=== PATIENT | male | born 1935 | race Caucasian/White ===

== ENCOUNTER 2018-05-16 08:18 | Inpatient (IN) | payer MEDICARE, SELFPAY ==
[2018-05-16] VITALS (16 sets, daily range): BP systolic 145–190; BP diastolic 86–149; PULSE 65–97; RESP 15–18; TEMP 36.3–37; O2SAT 92–98; BMI 28.0; BMI 26.6
[2018-05-16 08:31] LABS: Bedside Glucose 118 mg/dL (70-110)
--- NOTE | 2018-05-16 08:32 | EKG12_ITS ---
Test Reason : NEURO Blood Pressure : / mmHG Vent. Rate : 083 BPM Atrial Rate : 083 BPM P-R Int : 170 ms QRS Dur : 072 ms QT Int : 406 ms P-R-T Axes : 034 017 016 degrees QTc Int : 477 ms Normal sinus rhythm Normal ECG Confirmed by PALOMA GARCIA MD ([id number]), sports editor SHANNON LIN ([id number]) on 05/20/2018 10:18:34 AM Referred By: Confirmed By:PALOMA GARCIA MD
--- NOTE | 2018-05-16 08:32 | CT_ITS ---
STUDY: CT BRAIN WITHOUT CONTRAST REASON FOR EXAM: Male, 83 years old. Weakness. RADIATION DOSAGE (If Supplied By Facility): CTDIvol = ( 44.99 ) mGy, DLP = ( 812.98 ) mGycm TECHNIQUE: Transaxial CT imaging of the brain was performed without administration of intravenous contrast material. Individualized dose optimization techniques were used for this CT. COMPARISON: None. FINDINGS: Normal soft tissue structures. Normal calvarium. There is mild cerebral atrophy with widening of the extra-axial spaces and ventricular dilatation. There are areas of decreased attenuation within the white matter tracts of the supratentorial brain, consistent with microvascular disease changes. Findings suggestive of old lacunar infarcts in the left basal ganglion. Normal brainstem. There is mild cerebellar atrophy. There is no intracranial hemorrhage. There are no findings of an acute ischemic infarction. Atherosclerotic calcification of the cavernous portions of the internal carotid arteries bilaterally. Normal visualized paranasal sinuses. CT/Brain/Head without Contrast IMPRESSION: Chronic involutional changes of the brain. Old lacunar infarct in the left basal ganglion. Electronically Signed: Sal Moe MD at 9:12 EST Tel [phone], Service support ,
--- NOTE | 2018-05-16 08:32 | RAD_ITS ---
STUDY: X-RAY CHEST REASON FOR EXAM: Male, 83 years old. Stroke like symptoms. TECHNIQUE: Single AP portable view of the chest. COMPARISON: None. FINDINGS: EKG electrodes are seen. Hyperinflation. There is evidence of calcified pleural plaques in the right hemithorax. Scattered calcified granulomas. Increased markings in the right lung apex. This may represent scarring. Radiographic follow-up is recommended. Normal size heart. Normal mediastinum and elizabeth. Normal visualized pulmonary arteries. There is atherosclerotic tortuosity of the aortic arch and descending thoracic aorta. There are diffuse degenerative changes of the visualized thoracic spine. Normal visualized ribs, clavicles, and shoulders. There is no demonstrated abnormality of the visualized soft tissue structures of the upper abdomen. RAD/Chest 1 View IMPRESSION: Hyperinflation. Scattered calcified pleural plaques in the right hemithorax. Increased density in the right lung apex. Follow-up is recommended. Electronically Signed: Sal Moe MD at 9:11 EST Tel [phone], Service support ,
--- NOTE | 2018-05-16 08:34 | ED.VISSUMM ---
- ER Visit Summary Date of Service: 05/16/18 Chief Complaint: Left-sided weakness History of Present Illness: The patient is a 83 M who presents for left-sided weakness since yesterday morning. Onset at 10 AM. Patient lives alone at home and noted that his left side became weak. He has still been able to ambulate if he moves slowly and is careful. He denies any headache, vision changes, chest pain, shortness of breath, abdominal pain, fever or any other complaints at this time. No prior history of stroke. No history of coronary artery disease. Patient is supposed to be on blood pressure on occasion but does not take it. He has a history of psoriasis. Physical Examination: Vital signs: afebrile, hypertensive at 172/119, no hypoxia on room air General: well nourished, well developed, in no distress Skin: warm, dry, psoriatic rash, no pallor HEENT: normocephalic and atraumatic; PERRL, EOMI, moist mucous membranes Cardiovascular: regular rate and rhythm without murmurs, no peripheral edema, 2+ pulses all distal extremities Respiratory: No increased work of breathing, lungs are clear to auscultation bilaterally, no rales, rhonchi or wheezing Abdominal: Abdomen is soft, nontender with normoactive bowel sounds, no guarding or rebound, no masses MSK: Moves all extremities, no deformities, normal strength Neuro: Awake and alert, oriented ?4. Lower left-sided facial droop, mild dysarthria, no arm or leg drift, no sensory deficits, normal finger to nose and heel to solitario, normal visual horta, no nystagmus, no aphasia, NIH equals 2 Test Results: Abnormal Lab Results 05/16/18 05/16/18 05/16/18 08:24 08:26 08:26 WBC 9.1 RBC 5.30 Hgb 16.9 H Hct 49.1 MCV 92.6 MCH 31.9 MCHC 34.4 RDW 12.9 RDW Differential 43.4 Plt Count 182 MPV 9.5 Immature Gran % (Auto) 0.200 Neut % (Auto) 82.9 H Lymph % (Auto) 7.5 L [place] % (Auto) 7.1 Eos % (Auto) 2.0 Baso % (Auto) 0.3 Absolute Neuts (auto) 7.5 Absolute Lymphs (auto) 0.68 L Total Counted Not Reportable PT 13.7 INR 1.1 APTT 31.0 Sodium Potassium Chloride Carbon Dioxide Anion Gap BUN Creatinine Estim Creat Clear Calc Est GFR (MDRD) Af Amer Est GFR (MDRD) Non-Af BUN/Creatinine Ratio Glucose Calcium Troponin I POC Glucose 118 H 05/16/18 08:26 WBC RBC Hgb Hct MCV MCH MCHC RDW RDW Differential Plt Count MPV Immature Gran % (Auto) Neut % (Auto) Lymph % (Auto) [place] % (Auto) Eos % (Auto) Baso % (Auto) Absolute Neuts (auto) Absolute Lymphs (auto) Total Counted PT INR APTT Sodium 143 Potassium 3.9 Chloride 109 H Carbon Dioxide 27.0 Anion Gap 7 BUN 15 Creatinine 1.22 Estim Creat Clear Calc 43.65 Est GFR (MDRD) Af Amer 73 Est GFR (MDRD) Non-Af 60 BUN/Creatinine Ratio 12.3 Glucose 124 H Calcium 8.8 Troponin I < 0.015 POC Glucose Clinical Impression(s) from Imaging Studies Brain CT 05/16/18 08:32 IMPRESSION: Chronic involutional changes of the brain. Old lacunar infarct in the left basal ganglion. Electronically Signed: Sal Moe MD at 9:12 EST Tel [phone], Service support , Chest X-Ray 05/16/18 08:32 IMPRESSION: Hyperinflation. Scattered calcified pleural plaques in the right hemithorax. Increased density in the right lung apex. Follow-up is recommended. Electronically Signed: Sal Moe MD at 9:11 EST Tel [phone], Service support , Medications Given Discontinued Medications Aspirin (Aspirin) 325 mg PO X1 ONE Stop: 05/16/18 09:16 Emergency Department Course and Treatment: Patient's presentation is concerning for a stroke. Patient is outside the window of TPA. His NIH is 2, and given his low NIH and it being 22 hours since onset, he is not a candidate for other advanced intervention such as thrombectomy. Stroke workup was performed. EKG showed no atrial fibrillation. It showed sinus rhythm without ischemia or ectopy. Troponin negative. No significant hyperglycemia or hypoglycemia. CBC and BMP were unremarkable. Patient was given aspirin after CT of the head showed no intracranial hemorrhage. Patient's blood pressure was not treated in the emergency department, as his hypertension may be reactive to an ischemic insult. Patient will be discussed with the hospitalist for admission for further stroke workup. Treatment Plan: [] Disposition: [] Impression: Acute ischemic stroke This note was generated with [employer] dictation software. It may contain incorrect words, spelling, and punctuation that were not noted in review of the chart prior to signing ED Disposition - Plan for ED Patient: Chief Complaint: Neuro S/Sx Referrals: Austin Mesa MD [Primary Care Provider] -
--- NOTE | 2018-05-16 08:38 | ED.DCSUM_ITS ---
- ER Visit Summary Date of Service: 05/16/18 Chief Complaint: Left-sided weakness History of Present Illness: The patient is a 83 M who presents for left-sided weakness since yesterday morning. Onset at 10 AM. Patient lives alone at home and noted that his left side became weak. He has still been able to ambulate if he moves slowly and is careful. He denies any headache, vision changes, chest pain, shortness of breath, abdominal pain, fever or any other complaints at this time. No prior history of stroke. No history of coronary artery disease. Patient is supposed to be on blood pressure on occasion but does not take it. He has a history of psoriasis. Physical Examination: Vital signs: afebrile, hypertensive at 172/119, no hypoxia on room air General: well nourished, well developed, in no distress Skin: warm, dry, psoriatic rash, no pallor HEENT: normocephalic and atraumatic; PERRL, EOMI, moist mucous membranes Cardiovascular: regular rate and rhythm without murmurs, no peripheral edema, 2+ pulses all distal extremities Respiratory: No increased work of breathing, lungs are clear to auscultation bilaterally, no rales, rhonchi or wheezing Abdominal: Abdomen is soft, nontender with normoactive bowel sounds, no guarding or rebound, no masses MSK: Moves all extremities, no deformities, normal strength Neuro: Awake and alert, oriented ?4. Lower left-sided facial droop, mild dysarthria, no arm or leg drift, no sensory deficits, normal finger to nose and heel to solitario, normal visual horta, no nystagmus, no aphasia, NIH equals 2 Test Results: Abnormal Lab Results 05/16/18 05/16/18 05/16/18 08:24 08:26 08:26 WBC 9.1 RBC 5.30 Hgb 16.9 H Hct 49.1 MCV 92.6 MCH 31.9 MCHC 34.4 RDW 12.9 RDW Differential 43.4 Plt Count 182 MPV 9.5 Immature Gran % (Auto) 0.200 Neut % (Auto) 82.9 H Lymph % (Auto) 7.5 L [place] % (Auto) 7.1 Eos % (Auto) 2.0 Baso % (Auto) 0.3 Absolute Neuts (auto) 7.5 Absolute Lymphs (auto) 0.68 L Total Counted Not Reportable PT 13.7 INR 1.1 APTT 31.0 Sodium Potassium Chloride Carbon Dioxide Anion Gap BUN Creatinine Estim Creat Clear Calc Est GFR (MDRD) Af Amer Est GFR (MDRD) Non-Af BUN/Creatinine Ratio Glucose Calcium Troponin I POC Glucose 118 H 05/16/18 08:26 WBC RBC Hgb Hct MCV MCH MCHC RDW RDW Differential Plt Count MPV Immature Gran % (Auto) Neut % (Auto) Lymph % (Auto) [place] % (Auto) Eos % (Auto) Baso % (Auto) Absolute Neuts (auto) Absolute Lymphs (auto) Total Counted PT INR APTT Sodium 143 Potassium 3.9 Chloride 109 H Carbon Dioxide 27.0 Anion Gap 7 BUN 15 Creatinine 1.22 Estim Creat Clear Calc 43.65 Est GFR (MDRD) Af Amer 73 Est GFR (MDRD) Non-Af 60 BUN/Creatinine Ratio 12.3 Glucose 124 H Calcium 8.8 Troponin I < 0.015 POC Glucose Clinical Impression(s) from Imaging Studies Brain CT 05/16/18 08:32 IMPRESSION: Chronic involutional changes of the brain. Old lacunar infarct in the left basal ganglion. Electronically Signed: Sal Moe MD at 9:12 EST Tel [phone], Service support , Chest X-Ray 05/16/18 08:32 IMPRESSION: Hyperinflation. Scattered calcified pleural plaques in the right hemithorax. Increased density in the right lung apex. Follow-up is recommended. Electronically Signed: Sal Moe MD at 9:11 EST Tel [phone], Service support , Medications Given Discontinued Medications Aspirin (Aspirin) 325 mg PO X1 ONE Stop: 05/16/18 09:16 Emergency Department Course and Treatment: Patient's presentation is concerning for a stroke. Patient is outside the window of TPA. His NIH is 2, and given his low NIH and it being 22 hours since onset, he is not a candidate for other advanced intervention such as thrombectomy. Stroke workup was performed. EKG showed no atrial fibrillation. It showed sinus rhythm without ischemia or ectopy. Troponin negative. No significant hyperglycemia or hypoglycemia. CBC and BMP were unremarkable. Patient was given aspirin after CT of the head showed no intracranial hemorrhage. Patient's blood pressure was not treated in the emergency department, as his hypertension may be reactive to an ischemic insult. Patient will be discussed with the hospitalist for admission for further stroke workup. Treatment Plan: [] Disposition: [] Impression: Acute ischemic stroke This note was generated with [employer] dictation software. It may contain incorrect words, spelling, and punctuation that were not noted in review of the chart prior to signing ED Disposition - Plan for ED Patient: Chief Complaint: Neuro S/Sx Referrals: Austin Mesa MD [Primary Care Provider] -
[2018-05-16 08:40] LABS: Absolute Lymphocyte Count 0.68 X10^3/ul (0.83-4.51); Absolute Neutrophil Count 7.5 X10^3/uL (2.0-7.7); Basophil# 0.03 X10^3/uL; Basophil% 0.3 % (0-1); Eosinophil# 0.18 X10^3/uL; Hematocrit 49.1 % (40-54); Hemoglobin 16.9 g/dl (13.0-16.5); Lymphocyte # 0.68 X10^3/ul (4.0); Lymphocyte % 7.5 % (19-41); Mean Corp Hgb Conc 34.4 g/gl (32-36); Mean Corpuscular Hgb 31.9 pg (27.0-32.0); Mean Corpuscular Volume 92.6 fL (80-94); Mean Platelet Vol. 9.5 fl (6.2-12.0); Monocyte# 0.64 X10^3/uL; Monocyte% 7.1 % (0-10); Neutrophil # 7.51 X10^3/uL (2.7-7.7); Neutrophil % 82.9 % (47-70); Platelet Count 182 K/mm3 (150-450); RBC Distribution Width CV 12.9 % (11.6-14.6); RBC Distribution Width SD 43.4 fl (35.1-43.9); White Blood Count 9.1 K/mm3 (4.4-11.0)
[2018-05-16 08:41] LABS: POSITIVE COUNT NO; POSITIVE DIFFERENTIAL NO; POSITIVE MORPHOLOGY NO
[2018-05-16 08:44] LABS: International Normalized Ratio 1.1; Prothrombin Time (Protime)PT. 13.7 SECONDS (11.7-14.9)
[2018-05-16 08:55] LABS: Anion Gap 7 (5-15); BUN 15 mg/dL (7-18); BUN/Creat Ratio 12.3 RATIO (10-20); Calcium,Total 8.8 mg/dL (8.5-10.1); Chloride 109 mmol/L (98-107); Creatinine, Serum 1.22 mg/dL (0.70-1.30); EST Glomerular Filtration Rate 60 mL/min (>60); Est Glom Filt Rate - Afr Amer 73 mL/min (>60); Estimated Creatinine Clearance 43.65 ml/min; Glucose 124 mg/dL (74-106); Potassium 3.9 mmol/L (3.5-5.1); Sodium Level 143 mmol/L (136-145)
--- NOTE | 2018-05-16 09:02 | ED.RN ---
PT UNABLE TO SWALLOW FOODS OR FLUIDS WITH TOP DENTURE IN PLACE. INITIALLY PT COUGHED AT THE START OF THE DYSPHAGIA SCREEN, BUT WAS ABLE TO SWALLOW APPROPRIATELY AFTER REMOVING DENTURE. PT STATES HE NORMALLY EATS WITHOUT DENTURE IN IT IS ILL-FITTING. PT PASSED DYSPHAGIA SCREEN APPROPRIATELY.
--- NOTE | 2018-05-16 09:23 | ED.RN ---
BP 190/120 MANUAL TAKEN PER PHYSICIAN REQUEST. BP CHECKED TWICE MANUALLY FOR ACCURACY. HIGH BP VERBALLY REPORTED TO PHYSICIAN. PHYSICIAN DECISION NOT TO TREAT BP AT THIS TIME D/T PT NOT RECEIVING TPA. WILL CONTINUE TO MONITOR. PT DENIES NEEDS AT THIS TIME.
[2018-05-16] MEDS: Aspirin 325 MG Tablet PO (09:28)
--- NOTE | 2018-05-16 09:59 | MRI_ITS ---
STUDY: MRI BRAIN WITHOUT CONTRAST REASON FOR EXAM: Male, 83 years old. Left-sided weakness TECHNIQUE: Standardized multiplanar fat and water weighted pulse sequences were obtained. COMPARISON: CT the brain on May 16, 2018 FINDINGS: Mild atrophy and periventricular white matter ischemic changes.. Restricted diffusion is noted within the right basal ganglia extending into the deep white matter tracts in the right frontal parietal region. Small perivascular spaces in the left basal ganglia. Normal thalami. There is no extra-axial fluid accumulation. Normal flow voids within the major intracranial circulation suggesting patency by spin echo criteria. Normal sella turcica, pituitary gland, infundibular stalk, optic chiasm and hypothalamus. Normal tectal plate and pineal gland. Normal midbrain, maegan and medulla. Normal cerebellum. Normal basal cisterns. Normal bilateral temporal bones. Normal bilateral internal auditory canals. No demonstrated orbital abnormality, within the constraints of a routine brain study. There is minor mucosal thickening of left maxillary and bilateral ethmoid sinuses. Normal calvarium and skull base. Normal visualized soft tissue structures. Normal visualized upper cervical spine. MRI/Brain without Contrast IMPRESSION: Mild atrophy and ventricular white matter ischemic changes.. Acute ischemic changes within the left basal ganglia extending into the deep white matter tracts in the left frontal parietal region N.B. : The above information has been verbally conveyed by Saurav Talbot MD to aileen goodman RN, on 05/16/2018 20:42:15 (ET). Electronically Signed: Saurav Talbot MD at 20:20 EST , Service support ,
--- NOTE | 2018-05-16 09:59 | MRI_ITS ---
STUDY: MRA OF THE HEAD WITHOUT CONTRAST REASON FOR EXAM: Male, 83 years old. Left-sided weakness TECHNIQUE: 3-D [id number] (TOF) imaging was performed with MIPs. The study was performed unenhanced. COMPARISON: None. FINDINGS: Normal bilateral petrous carotid arteries. Normal right cavernous carotid artery with a normal supraclinoid bifurcation. Normal left cavernous carotid artery with a normal supraclinoid bifurcation. Normal right A1 segments of the anterior cerebral artery. Normal left A1 segments of the anterior cerebral artery. Normal intact anterior communicating artery (ACOM). Normal bilateral A2 segments of the anterior cerebral arteries. Normal right M1 and M2 segments of the middle cerebral arteries, with a normal M1 bifurcation. Normal left M1 and M2 segments of the middle cerebral arteries, with a normal M1 bifurcation. Posterior communicating arteries are not visualized consistent with normal variant Normal bilateral vertebral arteries. Normal basilar artery with a normal basilar bifurcation. The visualized bilateral superior cerebellar (SCA) arteries are normal. Normal bilateral P1, P2 and visualized P3 segments of the posterior cerebral arteries. There is no demonstrated aneurysm of the [place] of [place]. There is no major vessel occlusion or hemodynamically significant stenosis. There is no demonstrated abnormality of the visualized brain. MRI/MRA Head ONLY without Contrast IMPRESSION: Normal MRA of the head Electronically Signed: Saurav Talbot MD at 20:25 EST , Service support ,
--- NOTE | 2018-05-16 09:59 | ECHOD_ITS ---
Reason For Study: TIA/CVA Procedure This was a 2D Doppler, Color Flow transthoracic echocardiogram. Exam performed portable in patient room. Left Ventricle Normal LV size. Mild eccentric left ventricular hypertrophy. The estimated ejection fraction is 65 %. Stage 1 diastolic dysfunction. No regional wall motion abnormalities noted. Right Ventricle Normal RV size. Normal systolic function. Atria The left atrium is mildly enlarged. Normal right atrium. Bubble contrast study negative for right to left interatrial shunt. Mitral Valve Bileaflet diffuse mitral valve thickening. Mild (1+) eccentric mitral valve insufficiency. Tricuspid Valve Normal tricuspid valve. Mild (1+) tricuspid valve insufficiency. Pulmonary artery systolic pressure is 30 mmHg. Aortic Valve Trisinus/trileaflet aortic valve. Mild focal aortic valve calcification. Pulmonic Valve Normal pulmonic valve. Great Vessels Normal aortic root. The pulmonary artery is normal size. Normal inferior vena cava. Pericardium/Pleural No pericardial effusion. Medication Performed a rapid injection of agitated mix of 9 cc saline and 1cc air to assess for atrial septal defect. MMode/2D Measurements & Calculations LVIDd: 4.0 cm IVSd: 1.6 cm Ao root diam: 3.3 cm LVIDs: 2.7 cm LVPWd: 0.99 cm LA dimension: 4.2 cm RVDd: 3.2 cm FS: 31.5 % LAV(MOD-sp4): 74.3 ml LA A4 area: 24.9 cm2 RA A4 area: 17.0 cm2 Time Measurements MV dec time: 0.21 sec Doppler Measurements & Calculations MV E max migel: 76.0 cm/sec Lat Peak E' Migel: 8.9 cm/sec Med Peak E' Migel: 5.4 cm/sec MV A max migel: 91.7 cm/sec E/E' lat: 8.5 E/E' med: 14.2 MV E/A: 0.83 MV V2 max: 103.0 cm/sec MV P1/2t max migel: 81.9 cm/sec Ao V2 max: 141.2 cm/sec MV max P.2 mmHg MV P1/2t: 111.1 msec Ao max P.0 mmHg MV V2 mean: 61.0 cm/sec MV dec slope: 215.7 cm/sec2 Ao V2 mean: 83.4 cm/sec MV mean P.7 mmHg Ao mean P.3 mmHg MV V2 VTI: 26.9 cm MVA(P1/2t): 2.0 cm2 Ao V2 VTI: 25.5 cm LV V1 max: 97.1 cm/sec MR max migel: 628.7 cm/sec PA V2 max: 111.7 cm/sec LV V1 max P.8 mmHg MR max P.1 mmHg LV V1 mean P.7 mmHg MR mean migel: 496.9 cm/sec LV V1 mean: 59.3 cm/sec MR mean P.3 mmHg LV V1 VTI: 22.3 cm MR VTI: 205.3 cm TR max migel: 252.2 cm/sec TR max P.5 mmHg Interpretation Summary Normal LV size. Mild eccentric left ventricular hypertrophy. The estimated ejection fraction is 65 %. Stage 1 diastolic dysfunction. Mild (1+) eccentric mitral valve insufficiency. Bubble contrast study negative for right to left interatrial shunt. Mild (1+) tricuspid valve insufficiency. Pulmonary artery systolic pressure is 30 mmHg. Ordering Physician: Sami Jackson Referring Physician: Austin Mesa Performed By: Arjun Mendoza RCS
--- NOTE | 2018-05-16 09:59 | MRI_ITS ---
STUDY: MRA NECK WITH AND WITHOUT CONTRAST REASON FOR EXAM: Male, 83 years old. Stroke TECHNIQUE: 3-D [id number] (TOF) imaging was performed in an 1.5 T MRI scanner. 8 ml of Gadavist was administered for the contrast enhanced images. COMPARISON: None. FINDINGS: RIGHT CAROTID ARTERIES: Normal right common carotid artery (CCA). Normal right common carotid bulb. Mild plaquing of the origin of the right internal carotid (ICA) artery without a hemodynamically significant stenosis. Normal visualized cervical portion of the right internal carotid artery. Normal origin of the right external carotid artery (ECA). LEFT CAROTID ARTERIES: Normal left common carotid artery (CCA). Mild plaquing of the left common carotid bulb. Mild plaquing of the origin of the left internal carotid (ICA) artery without a hemodynamically significant stenosis. Normal visualized cervical portion of the left internal carotid artery. Normal origin of the left external carotid artery (ECA). VERTEBRAL ARTERIES: Normal antegrade flow within the bilateral vertebral artery without a hemodynamically significant stenosis. MRI/MRA Neck WITH and W/O Contrast IMPRESSION: Mild atherosclerotic disease slightly more advanced on the left. No evidence for hemodynamically significant stenosis utilizing NASCET criteria Electronically Signed: Saurav Talbot MD at 20:27 EST , Service support ,
--- NOTE | 2018-05-16 10:25 | PCM.HP.STD ---
Problem List (1) Acute ischemic stroke Status: Suspected (2) Depression Status: Chronic (3) Psoriasis Status: Chronic (4) Hypertension Status: Chronic History of Present Illness Date of Admission: 05/16/18 Chief Complaint: Left-sided body weakness. The patient is a 83 year old M with past medical history as mentioned above presented to the emergency room because of left-sided body weakness. Patient symptoms started yesterday morning around 10 AM but he did not seek medical attention and his daughter today forced him to come to the hospital for evaluation today. Patient stated that his symptoms started yesterday morning with left-sided body weakness, more prominent on the left upper extremity, was constant, associated with left facial droop and slurred speech and without aggravating or relieving factors. The patient lives alone at home. He admits that although he felt weak on his left side, he was able to manage and ambulate slowly and carefully. His daughter mentioned that his speech was slurred this morning. Patient denied headache, blurred vision, numbness or tingling. He denied chest pain or shortness of breath. Denies abdominal pain, nausea or vomiting. According to his daughter, he had a history of hypertension, was given a prescription for blood pressure medicine last year but he never took. He had a history of psoriasis and he is not taking any medication for it at this time. He had a history of benign prostatic hypertrophy status post TURP 20 years ago. In the emergency vomit, his blood pressure was highly elevated, maximum was 190/120, other vital signs are stable. His NIH score was 2. His routine blood work was unremarkable. EKG revealed normal sinus rhythm, normal ND interval, normal QRS without evidence of acute ischemic changes or cardiac arrhythmias. Troponin was negative. Pro time and INR were normal. CT scan brain without contrast revealed no acute infarction or hemorrhage, revealed left basal ganglia old lacunar infarct. Chest x-ray revealed calcified pleural plaques on the right lung, no acute findings. Past Medical History Past Medical History (Chronic Problems): Chronic Problems Depression (Chronic) Psoriasis (Chronic) Hypertension (Chronic) Allergies No Known Allergies Allergy (Verified 05/16/18 08:25) Home Medications: Ambulatory Orders Medication Instructions Recorded buPROPion XL [Wellbutrin Xl] 300 mg PO DAILY 05/16/18 Surgical History: TURP Psychiatric History: Depression Lives: Alone Smoking Status: Never smoker Alcohol: None Drugs: None - *Family History Paternal History Items: No pertinent history, - - No paternal history of stroke, hypertension, diabetes or heart disease. Maternal History Items: - - No maternal history of stroke, hypertension, diabetes or heart disease. Review of Systems Constitutional: Denies: Anorexia, Chills, Fever, Weakness, Fatigue Eyes: Denies: Blurred vision, Double vision, Drainage, Redness HEENT: Denies: Difficulty Hearing, Ear Pain, Eye Pain, Nasal Congestion, Post Nasal Drip, Sore Throat Cardiovascular: Denies: Chest Pain, Chest Pressure, Chest Tightness, Heaviness, Light Headedness, Palpitations, Syncope Respiratory: Denies: Cough, Pleuritic Pain, Shortness of Breath, Sputum production, Wheezing Gastrointestinal: Denies: Abdominal Pain, Constipation, Diarrhea, Nausea, Vomiting Genitourinary: Denies: Dysuria, Frequency, Hematuria Musculoskeletal: Denies: Arm Pain, Back Pain, Foot Pain Skin: Denies: Dryness, Rash Neurological: Reports: Change in Speech, Slurred speech, Focal weakness. Denies: Balance problems, Confusion, Headaches, Numbness, Tingling Psychiatric: Reports: Depression. Denies: Anxiety Endocrine: Denies: Change in Body Habitus, Polydipsia VTE Information - Inpt Only VTE Present on Admission: No VTE Mechan Device Prophylaxis: None VTE Pharm Prophylaxis ordered?: Yes Patient Problems: Active and Suspected Problems Acute ischemic stroke (Suspected) - Physical Exam General: Alert, Oriented x3, Cooperative, No apparent distress HEENT: Atraumatic, PERRLA, EOMI, Normocephalic Oral: Moist Mucosa, No Gingival or Mucosal Lesions/ Ulcerations Neck: Supple, No JVD, Negative Carotid Bruits, Trachea Midline, Thyroid Normal Size and Texture Lungs: Clear to auscultation, No rhonchi, No wheeze, No rales, Diminished Cardiovascular: Regular rate, Regular Rhythm, Normal S1, Normal S2, No murmurs, PMI Normal Abdomen: Bowel Sounds Present, Soft, Non Tender, Non-Distended, No Hepato-splenomegaly Extremities: No clubbing, No cyanosis, No edema Skin: No rashes, No breakdown Lymphatic: No Cervical, Supraclavicular, or Inguinal Adenopathy Neurological: Facial Droop, - - Minimal left facial droop. Power on the left upper extremity is almost 5 x 5 definitely minimally weaker than the right upper extremity. Power of the other extremities are 5 x 5. Psych/Mental Status: Normal Affect, Appropriate, Alert and oriented to time, place, person, mood and affect Vital Signs Temp Pulse Resp BP Pulse Ox 97.4 F L 74 18 162/103 H 96 05/16/18 10:15 05/16/18 10:15 05/16/18 10:15 05/16/18 10:19 05/16/18 10:15 Oxygen Flow Rate (L/min) 2 Oxygen Delivery Method Room Air Weight: 179 lb 0.246 oz Body Mass Index (BMI) 28.0 Finger Stick Blood Glucose 118 Laboratory Tests Past 24 Hrs 05/16/18 05/16/18 05/16/18 08:26 08:26 08:26 WBC 9.1 RBC 5.30 Hgb 16.9 H Hct 49.1 MCV 92.6 MCH 31.9 MCHC 34.4 RDW 12.9 RDW Differential 43.4 Plt Count 182 MPV 9.5 Immature Gran % (Auto) 0.200 Neut % (Auto) 82.9 H Lymph % (Auto) 7.5 L [place] % (Auto) 7.1 Eos % (Auto) 2.0 Baso % (Auto) 0.3 Absolute Neuts (auto) 7.5 Absolute Lymphs (auto) 0.68 L Total Counted Not Reportable PT 13.7 INR 1.1 APTT 31.0 Sodium 143 Potassium 3.9 Chloride 109 H Carbon Dioxide 27.0 Anion Gap 7 BUN 15 Creatinine 1.22 Estim Creat Clear Calc 43.65 Est GFR (MDRD) Af Amer 73 Est GFR (MDRD) Non-Af 60 BUN/Creatinine Ratio 12.3 Glucose 124 H Calcium 8.8 Troponin I < 0.015 POC Glucose 05/16/18 08:24 POC Glucose 118 H Clinical Impression(s) from Imaging Studies Brain CT 05/16/18 08:32 IMPRESSION: Chronic involutional changes of the brain. Old lacunar infarct in the left basal ganglion. Electronically Signed: Sal Moe MD at 9:12 EST Tel [phone], Service support , Chest X-Ray 05/16/18 08:32 IMPRESSION: Hyperinflation. Scattered calcified pleural plaques in the right hemithorax. Increased density in the right lung apex. Follow-up is recommended. Electronically Signed: Sal Moe MD at 9:11 EST Tel [phone], Service support , Assessment/Plan This is an 83 years old male patient presented to the emergency room because of left-sided body weakness and facial droop as well as slurred speech, found to have findings consistent with suspected acute ischemic stroke and also highly elevated blood pressure consistent with hypertensive emergency if acute stroke confirmed. #1 left-sided body weakness/probable TIA versus acute stroke: CT scan brain showed no acute signs, showed old lacunar infarct of the left basal ganglia. He has minimal weakness on the left upper extremity, otherwise no focal deficit. Blood pressure is high elevated. EKG revealed normal sinus rhythm without evidence of acute ischemic changes and no cardiac arrhythmias. Routine blood work was unremarkable. Plan: Admit to PCU for observation, cardiac monitoring, NIH stroke scale, start aspirin and Lipitor, MRI brain, MRA of the head and neck, 2D echocardiogram, neurology consult, allow permissive hypertension, PT OT evaluation and treatment. #2 hypertensive emergency: Based on systolic blood pressure more than 180 and probable stroke. Maximum blood pressure in the ER was 190/120. Came down to 162/103 at this time. Plan to allow permissive hypertension, patient will need to start on antihypertensive medication later. #3 hypertension: According to patient's daughter, patient supposed to be on blood pressure medicine that was prescribed by his PCP last year but he is not taking it. Plan as above, allow permissive hypertension, start antihypertensive medication later. #4 psoriasis: He is not on any treatment at this time. #5 history of benign prostatic hypertrophy: Status post TURP, stable no complaints, he is not on any medication for it. #6 depression: Continue Wellbutrin. #7 DVT prophylaxis: Subcu Lovenox. This note was generated with [employer] dictation software. It may contain incorrect words, spelling, and punctuation that were not noted in checking the note before signing. Code Visit OBSV E&M: 29049 Initial observation care L3
--- NOTE | 2018-05-16 10:31 | HP.PCM_ITS ---
Problem List (1) Acute ischemic stroke Status: Suspected (2) Depression Status: Chronic (3) Psoriasis Status: Chronic (4) Hypertension Status: Chronic History of Present Illness Date of Admission: 05/16/18 Chief Complaint: Left-sided body weakness. The patient is a 83 year old M with past medical history as mentioned above pres ented to the emergency room because of left-sided body weakness. Patient symptoms started yesterday morning around 10 AM but he did not seek medical attention and his daughter today forced him to come to the hospital for evaluation today. Patient stated that his symptoms started yesterday morning with left-sided body weakness, more prominent on the left upper extremity, was constant, associated with left facial droop and slurred speech and without aggravating or relieving factors. The patient lives alone at home. He admits that although he felt weak on his left side, he was able to manage and ambulate slowly and carefully. His daughter mentioned that his speech was slurred this morning. Patient denied headache, blurred vision, numbness or tingling. He denied chest pain or shortness of breath. Denies abdominal pain, nausea or vomiting. According to his daughter, he had a history of hypertension, was given a prescription for blood pressure medicine last year but he never took. He had a history of psoriasis and he is not taking any medication for it at this time. He had a history of benign prostatic hypertrophy status post TURP 20 years ago. In the emergency vomit, his blood pressure was highly elevated, maximum was 190/120, other vital signs are stable. His NIH score was 2. His routine blood work was unremarkable. EKG revealed normal sinus rhythm, normal AL interval, normal QRS without evidence of acute ischemic changes or cardiac arrhythmias. Troponin was negative. Pro time and INR were normal. CT scan brain without contrast revealed no acute infarction or hemorrhage, revealed left basal ganglia old lacunar infarct. Chest x-ray revealed calcified pleural plaques on the right lung, no acute findings. Past Medical History Past Medical History (Chronic Problems): Chronic Problems Depression (Chronic) Psoriasis (Chronic) Hypertension (Chronic) Allergies No Known Allergies Allergy (Verified 05/16/18 08:25) Home Medications: Ambulatory Orders Medication Instructions Recorded buPROPion XL [Wellbutrin Xl] 300 mg PO DAILY 05/16/18 Surgical History: TURP Psychiatric History: Depression Lives: Alone Smoking Status: Never smoker Alcohol: None Drugs: None - *Family History Paternal History Items: No pertinent history, - - No paternal history of stroke, hypertension, diabetes or heart disease. Maternal History Items: - - No maternal history of stroke, hypertension, diabetes or heart disease. Review of Systems Constitutional: Denies: Anorexia, Chills, Fever, Weakness, Fatigue Eyes: Denies: Blurred vision, Double vision, Drainage, Redness HEENT: Denies: Difficulty Hearing, Ear Pain, Eye Pain, Nasal Congestion, Post Nasal Drip, Sore Throat Cardiovascular: Denies: Chest Pain, Chest Pressure, Chest Tightness, Heaviness, Light Headedness, Palpitations, Syncope Respiratory: Denies: Cough, Pleuritic Pain, Shortness of Breath, Sputum production, Wheezing Gastrointestinal: Denies: Abdominal Pain, Constipation, Diarrhea, Nausea, Vomiting Genitourinary: Denies: Dysuria, Frequency, Hematuria Musculoskeletal: Denies: Arm Pain, Back Pain, Foot Pain Skin: Denies: Dryness, Rash Neurological: Reports: Change in Speech, Slurred speech, Focal weakness. Denies: Balance problems, Confusion, Headaches, Numbness, Tingling Psychiatric: Reports: Depression. Denies: Anxiety Endocrine: Denies: Change in Body Habitus, Polydipsia VTE Information - Inpt Only VTE Present on Admission: No VTE Mechan Device Prophylaxis: None VTE Pharm Prophylaxis ordered?: Yes Patient Problems: Active and Suspected Problems Acute ischemic stroke (Suspected) - Physical Exam General: Alert, Oriented x3, Cooperative, No apparent distress HEENT: Atraumatic, PERRLA, EOMI, Normocephalic Oral: Moist Mucosa, No Gingival or Mucosal Lesions/ Ulcerations Neck: Supple, No JVD, Negative Carotid Bruits, Trachea Midline, Thyroid Normal Size and Texture Lungs: Clear to auscultation, No rhonchi, No wheeze, No rales, Diminished Cardiovascular: Regular rate, Regular Rhythm, Normal S1, Normal S2, No murmurs, PMI Normal Abdomen: Bowel Sounds Present, Soft, Non Tender, Non-Distended, No Hepato- splenomegaly Extremities: No clubbing, No cyanosis, No edema Skin: No rashes, No breakdown Lymphatic: No Cervical, Supraclavicular, or Inguinal Adenopathy Neurological: Facial Droop, - - Minimal left facial droop. Power on the left upper extremity is almost 5 x 5 definitely minimally weaker than the right upper extremity. Power of the other extremities are 5 x 5. Psych/Mental Status: Normal Affect, Appropriate, Alert and oriented to time, place, person, mood and affect Vital Signs Temp Pulse Resp BP Pulse Ox 97.4 F L 74 18 162/103 H 96 05/16/18 10:15 05/16/18 10:15 05/16/18 10:15 05/16/18 10:19 05/16/18 10:15 Oxygen Flow Rate (L/min) 2 Oxygen Delivery Method Room Air Weight: 179 lb 0.246 oz Body Mass Index (BMI) 28.0 Finger Stick Blood Glucose 118 Laboratory Tests Past 24 Hrs 05/16/18 05/16/18 05/16/18 08:26 08:26 08:26 WBC 9.1 RBC 5.30 Hgb 16.9 H Hct 49.1 MCV 92.6 MCH 31.9 MCHC 34.4 RDW 12.9 RDW Differential 43.4 Plt Count 182 MPV 9.5 Immature Gran % (Auto) 0.200 Neut % (Auto) 82.9 H Lymph % (Auto) 7.5 L [place] % (Auto) 7.1 Eos % (Auto) 2.0 Baso % (Auto) 0.3 Absolute Neuts (auto) 7.5 Absolute Lymphs (auto) 0.68 L Total Counted Not Reportable PT 13.7 INR 1.1 APTT 31.0 Sodium 143 Potassium 3.9 Chloride 109 H Carbon Dioxide 27.0 Anion Gap 7 BUN 15 Creatinine 1.22 Estim Creat Clear Calc 43.65 Est GFR (MDRD) Af Amer 73 Est GFR (MDRD) Non-Af 60 BUN/Creatinine Ratio 12.3 Glucose 124 H Calcium 8.8 Troponin I < 0.015 POC Glucose 05/16/18 08:24 POC Glucose 118 H Clinical Impression(s) from Imaging Studies Brain CT 05/16/18 08:32 IMPRESSION: Chronic involutional changes of the brain. Old lacunar infarct in the left basal ganglion. Electronically Signed: Sal Moe MD at 9:12 EST Tel [phone], Service support , Chest X-Ray 05/16/18 08:32 IMPRESSION: Hyperinflation. Scattered calcified pleural plaques in the right hemithorax. Increased density in the right lung apex. Follow-up is recommended. Electronically Signed: Sal Moe MD at 9:11 EST Tel [phone], Service support , Assessment/Plan This is an 83 years old male patient presented to the emergency room because of left-sided body weakness and facial droop as well as slurred speech, found to have findings consistent with suspected acute ischemic stroke and also highly elevated blood pressure consistent with hypertensive emergency if acute stroke confirmed. #1 left-sided body weakness/probable TIA versus acute stroke: CT scan brain showed no acute signs, showed old lacunar infarct of the left basal ganglia. He has minimal weakness on the left upper extremity, otherwise no focal deficit. Blood pressure is high elevated. EKG revealed normal sinus rhythm without evidence of acute ischemic changes and no cardiac arrhythmias. Routine blood work was unremarkable. Plan: Admit to PCU for observation, cardiac monitoring, NIH stroke scale, start aspirin and Lipitor, MRI brain, MRA of the head and neck, 2D echocardiogram, neurology consult, allow permissive hypertension, PT OT evaluation and treatment. #2 hypertensive emergency: Based on systolic blood pressure more than 180 and probable stroke. Maximum blood pressure in the ER was 190/120. Came down to 162/103 at this time. Plan to allow permissive hypertension, patient will need to start on antihypertensive medication later. #3 hypertension: According to patient's daughter, patient supposed to be on blood pressure medicine that was prescribed by his PCP last year but he is not taking it. Plan as above, allow permissive hypertension, start antihypertensive medication later. #4 psoriasis: He is not on any treatment at this time. #5 history of benign prostatic hypertrophy: Status post TURP, stable no complaints, he is not on any medication for it. #6 depression: Continue Wellbutrin. #7 DVT prophylaxis: Subcu Lovenox. This note was generated with [employer] dictation software. It may contain incorrect words, spelling, and punctuation that were not noted in checking the note before signing. Code Visit OBSV E&M: 40569 Initial observation care L3
--- NOTE | 2018-05-16 10:42 | CON.PCM_ITS ---
Reason for Consult History of Present Illness: The patient is a 83 year old Per admit H&P: The patient is a 83 year old M with past medical history as mentioned above presented to the emergency room because of left-sided body weakness. Patient symptoms started yesterday morning around 10 AM but he did not seek medical attention and his daughter today forced him to come to the hospital for evaluation today. Patient stated that his symptoms started yesterday morning with left-sided body weakness, more prominent on the left uppe r extremity, was constant, associated with left facial droop and slurred speech and without aggravating or relieving factors. The patient lives alone at home. He admits that although he felt weak on his left side, he was able to manage and ambulate slowly and carefully. His daughter mentioned that his speech was slurred this morning. Patient denied headache, blurred vision, numbness or tingling. He denied chest pain or shortness of breath. Denies abdominal pain, nausea or vomiting. According to his daughter, he had a history of hypertension, was given a prescription for blood pressure medicine last year but he never took. He had a history of psoriasis and he is not taking any medication for it at this time. He had a history of benign prostatic hypertrophy status post TURP 20 years ago. In the emergency vomit, his blood pressure was highly elevated, maximum was 190/120, other vital signs are stable. His NIH score was 2. His routine blood work was unremarkable. EKG revealed normal sinus rhythm, normal [place] interval, normal QRS without evidence of acute ischemic changes or cardiac arrhythmias. Troponin was negative. Pro time and INR were normal. CT scan brain without contrast revealed no acute infarction or hemorrhage, revealed left basal ganglia old lacunar infarct. Chest x-ray revealed calcified pleural plaques on the right lung, no acute findings. Past Medical History Past Medical History (Chronic Problems): Chronic Problems Depression (Chronic) Psoriasis (Chronic) Hypertension (Chronic) Allergies No Known Allergies Allergy (Verified 05/16/18 08:25) Home Medications: Ambulatory Orders Medication Instructions Recorded buPROPion XL [Wellbutrin Xl] 300 mg PO DAILY 05/16/18 Surgical History: TURP Psychiatric History: Depression Lives: Alone Smoking Status: Never smoker Alcohol: None Drugs: None - *Family History Paternal History Items: No pertinent history, - - No paternal history of stroke, hypertension, diabetes or heart disease. Maternal History Items: - - No maternal history of stroke, hypertension, diabetes or heart disease. Patient Problems: Active and Suspected Problems Acute ischemic stroke (Suspected) - Physical Exam Vital Signs Temp Pulse Resp BP Pulse Ox 36.3 C L 74 18 162/103 H 96 05/16/18 10:15 05/16/18 10:15 05/16/18 10:15 05/16/18 10:19 05/16/18 10:15 Oxygen Flow Rate (L/min) 2 Oxygen Delivery Method Room Air Weight: 79.4 kg Body Mass Index (BMI) 26.6 Finger Stick Blood Glucose 118 Laboratory Tests Past 24 Hrs 05/16/18 05/16/18 05/16/18 08:26 08:26 08:26 WBC 9.1 RBC 5.30 Hgb 16.9 H Hct 49.1 MCV 92.6 MCH 31.9 MCHC 34.4 RDW 12.9 RDW Differential 43.4 Plt Count 182 MPV 9.5 Immature Gran % (Auto) 0.200 Neut % (Auto) 82.9 H Lymph % (Auto) 7.5 L [place] % (Auto) 7.1 Eos % (Auto) 2.0 Baso % (Auto) 0.3 Absolute Neuts (auto) 7.5 Absolute Lymphs (auto) 0.68 L Total Counted Not Reportable PT 13.7 INR 1.1 APTT 31.0 Sodium 143 Potassium 3.9 Chloride 109 H Carbon Dioxide 27.0 Anion Gap 7 BUN 15 Creatinine 1.22 Estim Creat Clear Calc 43.65 Est GFR (MDRD) Af Amer 73 Est GFR (MDRD) Non-Af 60 BUN/Creatinine Ratio 12.3 Glucose 124 H Calcium 8.8 Troponin I < 0.015 POC Glucose 05/16/18 08:24 POC Glucose [address] reviewed, chronic subcortical white matter changes worse on the left Assessment/Plan MRI pending Echo pending
[2018-05-16] MEDS: Enoxaparin 40 MG/0.4 ML Syringe SC (11:26)
[2018-05-16] MEDS: 0.9% Normal Saline 1,000 ML 100 ML IV ×2 (11:26→22:31)
--- NOTE | 2018-05-16 19:13 | NURSING ---
Reviewed and agreed on all charting with Roberto Cook RN
--- NOTE | 2018-05-16 20:41 | NURSING ---
This nurse took message from Dr. Garner, Radiologist, regarding pt. MRI results. Stated, acute small focal infarct right frontal parietal, no bleed.
[2018-05-16] MEDS: Atorvastatin Calcium 80 MG Tablet PO (21:05)
[2018-05-17] VITALS (14 sets, daily range): BP systolic 136–155; BP diastolic 73–92; PULSE 68–82; RESP 16–18; TEMP 36.9–37.2; O2SAT 95–97; BMI 26.6
[2018-05-17 06:49] LABS: Cholesterol 158 mg/dL (200); High Density Lipoprotein 40 mg/dL; Triglycerides 148 mg/dL; Very Low Density Lipoprotein 30 mg/dL (5-40)
--- NOTE | 2018-05-17 07:51 | PCM.PROGNOTE ---
Patient Problems: Active and Suspected Problems Acute ischemic stroke (Suspected) Subjective: Chief complaint: Follow-up after admission for acute ischemic stroke of the right basal ganglia/left frontal parietal region. Patient seen and examined. No acute events overnight. Weakness of the left upper extremity minimally improved, power is almost 5 x 5. Denies any other complaints. Blood pressure down to 150 systolic, other vital signs are stable. - Physical Exam General: Alert, Oriented x3, Cooperative HEENT: Atraumatic, PERRLA, EOMI, Normocephalic Oral: Moist Mucosa, No Gingival or Mucosal Lesions/ Ulcerations Neck: Supple, No JVD, Negative Carotid Bruits, Trachea Midline, Thyroid Normal Size and Texture Lungs: Clear to auscultation, No rhonchi, No wheeze, No rales, Diminished Cardiovascular: Regular rate, Regular Rhythm, Normal S1, Normal S2, PMI Normal Abdomen: Bowel Sounds Present, Soft, Non Tender, Non-Distended, No Hepato-splenomegaly Extremities: No clubbing, No cyanosis, No edema Skin: No rashes, No breakdown Lymphatic: No Cervical, Supraclavicular, or Inguinal Adenopathy Neurological: - - Minimal left facial droop, power of the left upper extremity is almost 5 x 5. Otherwise, power is normal. Psych/Mental Status: Normal Affect, Appropriate, Alert and oriented to time, place, person, mood and affect Vital Signs Temp Pulse Resp BP Pulse Ox 98.5 F 73 16 148/89 H 97 05/17/18 05:00 05/17/18 07:19 05/17/18 05:00 05/17/18 05:00 05/17/18 05:00 Oxygen Flow Rate (L/min) 2 Oxygen Delivery Method Room Air Weight: 175 lb 0.752 oz Body Mass Index (BMI) 26.6 Finger Stick Blood Glucose 118 Intake and Output for Last 24 Hours 05/15/18 05/16/18 05/17/18 23:59 23:59 23:59 Intake Total 1393 / 1393 558 / 558 Balance 1393 / 1393 558 / 558 Laboratory Tests Past 24 Hrs 05/16/18 05/16/18 05/16/18 08:26 08:26 08:26 WBC 9.1 RBC 5.30 Hgb 16.9 H Hct 49.1 MCV 92.6 MCH 31.9 MCHC 34.4 RDW 12.9 RDW Differential 43.4 Plt Count 182 MPV 9.5 Immature Gran % (Auto) 0.200 Neut % (Auto) 82.9 H Lymph % (Auto) 7.5 L [place] % (Auto) 7.1 Eos % (Auto) 2.0 Baso % (Auto) 0.3 Absolute Neuts (auto) 7.5 Absolute Lymphs (auto) 0.68 L Total Counted Not Reportable PT 13.7 INR 1.1 APTT 31.0 Sodium 143 Potassium 3.9 Chloride 109 H Carbon Dioxide 27.0 Anion Gap 7 BUN 15 Creatinine 1.22 Estim Creat Clear Calc 43.65 Est GFR (MDRD) Af Amer 73 Est GFR (MDRD) Non-Af 60 BUN/Creatinine Ratio 12.3 Glucose 124 H Calcium 8.8 Troponin I < 0.015 Triglycerides Cholesterol LDL Cholesterol VLDL Cholesterol HDL Cholesterol 05/17/18 06:00 WBC RBC Hgb Hct MCV MCH MCHC RDW RDW Differential Plt Count MPV Immature Gran % (Auto) Neut % (Auto) Lymph % (Auto) [place] % (Auto) Eos % (Auto) Baso % (Auto) Absolute Neuts (auto) Absolute Lymphs (auto) Total Counted PT INR APTT Sodium Potassium Chloride Carbon Dioxide Anion Gap BUN Creatinine Estim Creat Clear Calc Est GFR (MDRD) Af Amer Est GFR (MDRD) Non-Af BUN/Creatinine Ratio Glucose Calcium Troponin I Triglycerides 148 Cholesterol 158 LDL Cholesterol 88 VLDL Cholesterol 30 HDL Cholesterol 40 POC Glucose 05/16/18 08:24 POC Glucose 118 H Clinical Impression(s) from Imaging Studies Brain CT 05/16/18 08:32 IMPRESSION: Chronic involutional changes of the brain. Old lacunar infarct in the left basal ganglion. Electronically Signed: Sal Moe MD at 9:12 EST Tel [phone], Service support , Chest X-Ray 05/16/18 08:32 IMPRESSION: Hyperinflation. Scattered calcified pleural plaques in the right hemithorax. Increased density in the right lung apex. Follow-up is recommended. Electronically Signed: Sal Moe MD at 9:11 EST Tel [phone], Service support , Brain MRI 05/16/18 09:59 IMPRESSION: Mild atrophy and ventricular white matter ischemic changes.. Acute ischemic changes within the left basal ganglia extending into the deep white matter tracts in the left frontal parietal region N.B. : The above information has been verbally conveyed by Saurav Talbot MD to aileen goodman RN, on 05/16/2018 20:42:15 (ET). Electronically Signed: Saurav Talbot MD at 20:20 EST , Service support , Head MRA 05/16/18 09:59 IMPRESSION: Normal MRA of the head Electronically Signed: Saurav Talbot MD at 20:25 EST , Service support , Neck MRA 05/16/18 09:59 IMPRESSION: Mild atherosclerotic disease slightly more advanced on the left. No evidence for hemodynamically significant stenosis utilizing NASCET criteria Electronically Signed: Saurav Talbot MD at 20:27 EST , Service support , Medical Necessity - Tobacco Use Smoking Status: Never smoker Tobacco Use: Non-smoker Assessment/Plan This is an 83 years old male patient presented to the emergency room because of left-sided body weakness and facial droop as well as slurred speech, found to have acute ischemic stroke of the right basal ganglia/right frontal parietal region. #1 Acute ischemic stroke of the right basal ganglia/right frontoparietal region: With resultant minimal left upper extremity and minimal left facial droop. MRI brain reviewed, findings noted. MRA of the head and neck revealed no evidence of hemodynamically significant vascular disease or stenosis. 2D echocardiogram revealed normal LV size and function, ejection fraction 65%, bubble contrast study negative for [id number] shunt. Patient is on aspirin and statins. Blood pressure improved. Neurology on the case. Plan to continue same treatment, PT OT evaluation and treatment. #2 hypertensive emergency: Based on systolic blood pressure more than 180 and confirmed acute stroke. Maximum blood pressure in the ER was 190/120. Today, blood pressure improved, down to 150 systolic without treatment. Patient will need to be started on antihypertensive medications. #3 hypertension: Blood pressure improved as above without treatment. We will start him on lisinopril/HCTZ tomorrow. #4 psoriasis: He is not on any treatment at this time. 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 #5 history of benign prostatic hypertrophy: Status post TURP, stable no complaints, he is not on any medication for it. Denies urinary symptoms. #6 depression: Continue Wellbutrin. #7 DVT prophylaxis: Subcu Lovenox. This note was generated with [employer] dictation software. It may contain incorrect words, spelling, and punctuation that were not noted in checking the note before signing. Code Visit Inpatient E&M: 84074 Subs Hosp L2
--- NOTE | 2018-05-17 07:58 | PN_ITS ---
Patient Problems: Active and Suspected Problems Acute ischemic stroke (Suspected) Subjective: Chief complaint: Follow-up after admission for acute ischemic stroke of the right basal ganglia/left frontal parietal region. Patient seen and examined. No acute events overnight. Weakness of the left upper extremity minimally improved, power is almost 5 x 5. Denies any other complaints. Blood pressure down to 150 systolic, other vital signs are stable. - Physical Exam General: Alert, Oriented x3, Cooperative HEENT: Atraumatic, PERRLA, EOMI, Normocephalic Oral: Moist Mucosa, No Gingival or Mucosal Lesions/ Ulcerations Neck: Supple, No JVD, Negative Carotid Bruits, Trachea Midline, Thyroid Normal Size and Texture Lungs: Clear to auscultation, No rhonchi, No wheeze, No rales, Diminished Cardiovascular: Regular rate, Regular Rhythm, Normal S1, Normal S2, PMI Normal Abdomen: Bowel Sounds Present, Soft, Non Tender, Non-Distended, No Hepato- splenomegaly Extremities: No clubbing, No cyanosis, No edema Skin: No rashes, No breakdown Lymphatic: No Cervical, Supraclavicular, or Inguinal Adenopathy Neurological: - - Minimal left facial droop, power of the left upper extremity is almost 5 x 5. Otherwise, power is normal. Psych/Mental Status: Normal Affect, Appropriate, Alert and oriented to time, place, person, mood and affect Vital Signs Temp Pulse Resp BP Pulse Ox 98.5 F 73 16 148/89 H 97 05/17/18 05:00 05/17/18 07:19 05/17/18 05:00 05/17/18 05:00 05/17/18 05:00 Oxygen Flow Rate (L/min) 2 Oxygen Delivery Method Room Air Weight: 175 lb 0.752 oz Body Mass Index (BMI) 26.6 Finger Stick Blood Glucose 118 Intake and Output for Last 24 Hours 05/15/18 05/16/18 05/17/18 23:59 23:59 23:59 Intake Total 1393 / 1393 558 / 558 Balance 1393 / 1393 558 / 558 Laboratory Tests Past 24 Hrs 05/16/18 05/16/18 05/16/18 08:26 08:26 08:26 WBC 9.1 RBC 5.30 Hgb 16.9 H Hct 49.1 MCV 92.6 MCH 31.9 MCHC 34.4 RDW 12.9 RDW Differential 43.4 Plt Count 182 MPV 9.5 Immature Gran % (Auto) 0.200 Neut % (Auto) 82.9 H Lymph % (Auto) 7.5 L [place] % (Auto) 7.1 Eos % (Auto) 2.0 Baso % (Auto) 0.3 Absolute Neuts (auto) 7.5 Absolute Lymphs (auto) 0.68 L Total Counted Not Reportable PT 13.7 INR 1.1 APTT 31.0 Sodium 143 Potassium 3.9 Chloride 109 H Carbon Dioxide 27.0 Anion Gap 7 BUN 15 Creatinine 1.22 Estim Creat Clear Calc 43.65 Est GFR (MDRD) Af Amer 73 Est GFR (MDRD) Non-Af 60 BUN/Creatinine Ratio 12.3 Glucose 124 H Calcium 8.8 Troponin I < 0.015 Triglycerides Cholesterol LDL Cholesterol VLDL Cholesterol HDL Cholesterol 05/17/18 06:00 WBC RBC Hgb Hct MCV MCH MCHC RDW RDW Differential Plt Count MPV Immature Gran % (Auto) Neut % (Auto) Lymph % (Auto) [place] % (Auto) Eos % (Auto) Baso % (Auto) Absolute Neuts (auto) Absolute Lymphs (auto) Total Counted PT INR APTT Sodium Potassium Chloride Carbon Dioxide Anion Gap BUN Creatinine Estim Creat Clear Calc Est GFR (MDRD) Af Amer Est GFR (MDRD) Non-Af BUN/Creatinine Ratio Glucose Calcium Troponin I Triglycerides 148 Cholesterol 158 LDL Cholesterol 88 VLDL Cholesterol 30 HDL Cholesterol 40 POC Glucose 05/16/18 08:24 POC Glucose 118 H Clinical Impression(s) from Imaging Studies Brain CT 05/16/18 08:32 IMPRESSION: Chronic involutional changes of the brain. Old lacunar infarct in the left basal ganglion. Electronically Signed: Sal Moe MD at 9:12 EST Tel [phone], Service support , Chest X-Ray 05/16/18 08:32 IMPRESSION: Hyperinflation. Scattered calcified pleural plaques in the right hemithorax. Increased density in the right lung apex. Follow-up is recommended. Electronically Signed: Sal Moe MD at 9:11 EST Tel [phone], Service support , Brain MRI 05/16/18 09:59 IMPRESSION: Mild atrophy and ventricular white matter ischemic changes.. Acute ischemic changes within the left basal ganglia extending into the deep white matter tracts in the left frontal parietal region N.B. : The above information has been verbally conveyed by Saurav Talbot MD to aileen goodman RN, on 05/16/2018 20:42:15 (ET). Electronically Signed: Saurav Talbot MD at 20:20 EST , Service support , Head MRA 05/16/18 09:59 IMPRESSION: Normal MRA of the head Electronically Signed: Saurav Talbot MD at 20:25 EST , Service support , Neck MRA 05/16/18 09:59 IMPRESSION: Mild atherosclerotic disease slightly more advanced on the left. No evidence for hemodynamically significant stenosis utilizing NASCET criteria Electronically Signed: Saurav Talbot MD at 20:27 EST , Service support , Medical Necessity - Tobacco Use Smoking Status: Never smoker Tobacco Use: Non-smoker Assessment/Plan This is an 83 years old male patient presented to the emergency room because of left-sided body weakness and facial droop as well as slurred speech, found to have acute ischemic stroke of the right basal ganglia/right frontal parietal region. #1 Acute ischemic stroke of the right basal ganglia/right frontoparietal region: With resultant minimal left upper extremity and minimal left facial droop. MRI brain reviewed, findings noted. MRA of the head and neck revealed no evidence of hemodynamically significant vascular disease or stenosis. 2D echocardiogram revealed normal LV size and function, ejection fraction 65%, bubble contrast study negative for [id number] shunt. Patient is on aspirin and statins. Blood pressure improved. Neurology on the case. Plan to continue same treatment, PT OT evaluation and treatment. #2 hypertensive emergency: Based on systolic blood pressure more than 180 and confirmed acute stroke. Maximum blood pressure in the ER was 190/120. Today, blood pressure improved, down to 150 systolic without treatment. Patient will need to be started on antihypertensive medications. #3 hypertension: Blood pressure improved as above without treatment. We will start him on lisinopril/HCTZ tomorrow. #4 psoriasis: He is not on any treatment at this time. 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 #5 history of benign prostatic hypertrophy: Status post TURP, stable no complaints, he is not on any medication for it. Denies urinary symptoms. #6 depression: Continue Wellbutrin. #7 DVT prophylaxis: Subcu Lovenox. This note was generated with [employer] dictation software. It may contain incorrect words, spelling, and punctuation that were not noted in checking the note before signing. Code Visit Inpatient E&M: 55438 Subs Hosp L2
[2018-05-17] MEDS: Enoxaparin 40 MG/0.4 ML Syringe SC (08:50)
[2018-05-17] MEDS: buPROPion (XL) 300 MG TABLET.XL PO (08:50)
[2018-05-17] MEDS: Lisinopril 20 MG Tablet PO (08:50)
[2018-05-17] MEDS: Aspirin 81 MG TAB.CHEW PO (08:50)
[2018-05-17] MEDS: hydroCHLOROthiazide 12.5mg 12.5 MG PO (10:43)
--- NOTE | 2018-05-17 13:18 | CASEMGMT ---
MAURICIO MA assessment: Face to Face with patient for initial transition planning/care coordination assessment. MAURICIO MA introduced self and role at [facility], pt/family voices understanding and consents to assessment at this time. Pt is sitting up in chair in no distress at this time. Pt is A/Ox4 at this time and answers all questions appropriately at this time. Pt's son and daughter are at bedside during assessment and assist with answering questions. Care providers, pharmacy, and demographics verified/updated at this time. PCP: [facility] Specialists: Pt currently has no specialists. Preferred [facility]acy: [facility] Insurance: [employer] Prescription Benefit: [employer] Living Will/HPOA: Pt states has LW/HPOA but they are not currently on file at [facility]. Pt states daughter, Devi Lee, is HPOA. LNOK: Devi Lee, daughter; Valentina Mcclain, daughter Living Arrangements: Pt states lives alone in 1 story home with 1 step in and states no concerns at home at this time. Transportation: Pt normally drives self but will be on restriction at discharge for 2 weeks. Pt/family state no transportation concerns at this time. DME/HHC: Pt has the following DME: walker, cane, crutches, grab bars and shower chair. Pt states that these were all his wifes prior to her . Pt states no need for any further DME at this time. Pt states no hx of HHC or SNF in the past. Therapy is recommending further skilled therapy and pt/family agree to outpt therapy at [facility] at this time. Call to [facility] to make sure they could take pt for outpt PT/OT but they are unable to take call at this time. Per Dr. Jackson, pt will be released tomorrow 05/18. Signed order to be faxed tomorrow after completed and this MAURICIO MA will call [facility] again. Pt/family updated on all at this time, voice understanding. Pt/family voice no concerns with pt going home at time of discharge. Pt is retired. Pt states does no smoke or drink ETOH. Pt voices no further concerns/needs at this time. CM to follow for any further discharge planning/needs. Advised pt/family to ask for CM if any further questions/concerns/needs arise, voices understanding. Plan: Home w/ OP therapy at [facility] [place] MAURICIO MA
[2018-05-17] MEDS: Zolpidem Tartrate 5 MG Tablet PO (20:56)
[2018-05-17] MEDS: Atorvastatin Calcium 80 MG Tablet PO (20:56)
[2018-05-18 00:10] VITALS: BMI 26.6
[2018-05-18 00:30] VITALS: BP 117/80; PULSE 77; RESP 18; TEMP 36.9; O2SAT 95
[2018-05-18 03:13] VITALS: PULSE 65
[2018-05-18 04:40] VITALS: BP 128/69; PULSE 71; RESP 18; TEMP 37; O2SAT 94
[2018-05-18 07:00] VITALS: O2SAT 95
[2018-05-18 07:08] VITALS: PULSE 70
--- NOTE | 2018-05-18 08:03 | DCINST_ITS ---
- Discharge Diagnoses Current Active Problems: Current Active and Chronic Problems Depression (Chronic) Psoriasis (Chronic) Hypertension (Chronic) You will use the following diet at home:: Cardiac Your food should be the consistency of: Regular Discharge Activity: Return to Normal Activity Weight Bearing Status: Weight bearing as tolerated Call your doctor if you observe: Fever of 101 or Higher, Shortness of breath, Dizziness, Fainting spells, Chest pain, Increased palpitations (irregular heartbeat), Uncontrolled pain Allergies/Adverse Reactions: Allergies No Known Allergies Allergy (Verified 05/16/18 08:25) Medications to take at Discharge buPROPion XL [Wellbutrin Xl] 300 mg PO DAILY 05/16/18 Aspirin [Aspirin, Baby] 81 mg PO DAILY@0800 #90 tab.chew 05/18/18 Atorvastatin Calcium [Lipitor] 80 mg PO QHS #90 tablet 05/18/18 Lisinopril/Hydrochlorothiazide [Zestoretic 10/12.5 Tablet] 1 tablet PO DAILY #30 tablet 05/18/18 The following prescriptions were given: Aspirin [Aspirin, Baby] 81 mg PO DAILY@0800 #90 tab.chew Atorvastatin Calcium [Lipitor] 80 mg PO QHS #90 tablet Lisinopril/Hydrochlorothiazide [Zestoretic 10/12.5 Tablet] 1 tablet PO DAILY #30 tablet Primary Care Physician: Austin Mesa MD [Primary Care Provider] - Please follow up with your Primary Care Physician in: 1 week. Test Results: Test results from this visit will be discussed in further detail at your follow- up appointment, if applicable.
[2018-05-18 08:36] VITALS: BP 143/78; PULSE 76; RESP 16; TEMP 36.6; O2SAT 96
[2018-05-18] MEDS: Lisinopril 20 MG Tablet PO (08:39)
[2018-05-18] MEDS: Aspirin 81 MG TAB.CHEW PO (08:39)
[2018-05-18] MEDS: Enoxaparin 40 MG/0.4 ML Syringe SC (08:39)
[2018-05-18] MEDS: buPROPion (XL) 300 MG TABLET.XL PO (08:39)
[2018-05-18] MEDS: hydroCHLOROthiazide 12.5mg 12.5 MG PO (08:39)
[2018-05-18 10:00] VITALS: BMI 26.6
--- NOTE | 2018-05-18 10:30 | CASEMGMT ---
[facility]. This RN CM [facility] to [facility] at this time and message left for therapist to call this RN CM back when able. SStjun MARTÍNEZ CM
--- NOTE | 2018-05-18 11:54 | PCM.DC.SUM ---
Discharge Date and Diagnosis Date of Admission: 05/16/18 Date of Discharge: 05/18/18 - Primary Discharge Diagnosis #1 acute ischemic stroke of the right basal ganglia/right frontoparietal region. #2 hypertensive emergency/uncontrolled hypertension. - Secondary Discharge Diagnosis Chronic Problems Depression (Chronic) Psoriasis (Chronic) Hypertension (Chronic) Hospital Course and Treatment Imaging Results: Clinical Impression(s) from Imaging Studies Brain CT 05/16/18 08:32 IMPRESSION: Chronic involutional changes of the brain. Old lacunar infarct in the left basal ganglion. Electronically Signed: Sal Moe MD at 9:12 EST Tel [phone], Service support , Chest X-Ray 05/16/18 08:32 IMPRESSION: Hyperinflation. Scattered calcified pleural plaques in the right hemithorax. Increased density in the right lung apex. Follow-up is recommended. Electronically Signed: Sal Moe MD at 9:11 EST Tel [phone], Service support , Brain MRI 05/16/18 09:59 IMPRESSION: Mild atrophy and ventricular white matter ischemic changes.. Acute ischemic changes within the left basal ganglia extending into the deep white matter tracts in the left frontal parietal region N.B. : The above information has been verbally conveyed by Saurav Talbot MD to aileen goodman RN, on 05/16/2018 20:42:15 (ET). Electronically Signed: Saurav Talbot MD at 20:20 EST , Service support , Head MRA 05/16/18 09:59 IMPRESSION: Normal MRA of the head Electronically Signed: Saurav Talbot MD at 20:25 EST , Service support , Neck MRA 05/16/18 09:59 IMPRESSION: Mild atherosclerotic disease slightly more advanced on the left. No evidence for hemodynamically significant stenosis utilizing NASCET criteria Electronically Signed: Saurav Talbot MD at 20:27 EST , Service support , Dr. Gillis, neurology. Procedures: 2-D Echocardiogram, EKG Summary of Care Provided: Patient seen and examined on the day of discharge and appeared to be stable to be discharged home. Weakness of the left upper extremity is almost gone. Denied any other complaints. His vital signs are stable, blood pressure significantly improved. The patient is a 83 year old M admitted because of left-sided body weakness and facial droop as well as slurred speech and he was found to have acute ischemic stroke of the right basal ganglia/right frontoparietal region. Patient had a history of hypertension and is supposed to take antihypertensive medication that was prescribed almost 1 year ago but he did not. Upon arrival to ER, his blood pressure was elevated and maximum was 190/120. CT scan brain done in the ED and revealed no evidence of acute infarction or hemorrhage, revealed old lacunar infarction of the left basal ganglia. MRI brain done and revealed acute ischemic stroke of the right basal ganglia/right frontoparietal region. MRA of the head and neck revealed no evidence of hemodynamically significant vascular disease or stenosis. His EKG revealed normal sinus rhythm without evidence of acute ischemic changes or cardiac arrhythmias. 2D echocardiogram showed normal LV size and function, ejection fraction of 65% and bubble contrast study that was negative for [id number] shunt. Patient was treated with aspirin and high intensity statins. Initially, no treatment given for the high blood pressure to allow permissive hypertension for acute stroke. Later, patient was started on lisinopril/HCTZ and his blood pressure improved. Weakness of the left upper extremity improved. Patient was seen by PT OT and I recommended placement to rehabilitation unit for physical therapy but patient refused and elected to go home. Outpatient physical therapy ordered. Patient discharged home in a stable medical condition, discharged on aspirin and statins, started on lisinopril/HCTZ for hypertension, recommended to check blood pressure at least twice daily, follow-up with PCP in 1 week. - Physical Exam General: Alert, Oriented x3, Cooperative, No apparent distress HEENT: Atraumatic, PERRLA, EOMI, Normocephalic Oral: Moist Mucosa, No Gingival or Mucosal Lesions/ Ulcerations Neck: Supple, No JVD, Negative Carotid Bruits, Trachea Midline, Thyroid Normal Size and Texture Lungs: Clear to auscultation, Normal air movement, No rhonchi, No wheeze, No rales Cardiovascular: Regular rate, Regular Rhythm, Normal S1, Normal S2, No murmurs Abdomen: Bowel Sounds Present, Soft, Non Tender, Non-Distended, No Hepato-splenomegaly Extremities: No clubbing, No cyanosis, No edema Skin: No rashes, No breakdown Neurological: Motor Exam 5/5 strength throughout, - - Minimal left-sided facial droop Psych/Mental Status: Normal Affect, Appropriate, Alert and oriented to time, place, person, mood and affect Vital Signs Temp Pulse Resp BP Pulse Ox 97.8 F 76 16 143/78 H 96 05/18/18 08:36 05/18/18 08:36 05/18/18 08:36 05/18/18 08:36 05/18/18 08:36 Oxygen Flow Rate (L/min) 2 Oxygen Delivery Method Room Air Weight: 175 lb 0.752 oz Body Mass Index (BMI) 26.6 Finger Stick Blood Glucose 118 Intake and Output for Last 24 Hours 05/16/18 05/17/18 05/18/18 23:59 23:59 23:59 Intake Total 1393 / 1393 1418 / 1418 120 / 120 Balance 1393 / 1393 1418 / 1418 120 / 120 Discharge Activity: Return to Normal Activity Weight Bearing Status: Weight bearing as tolerated Call your doctor if you observe: Fever of 101 or Higher, Shortness of breath, Dizziness, Fainting spells, Chest pain, Increased palpitations (irregular heartbeat), Uncontrolled pain Home Medications: Medications to take at Discharge buPROPion XL [Wellbutrin Xl] 300 mg PO DAILY 05/16/18 Aspirin [Aspirin, Baby] 81 mg PO DAILY@0800 #90 tab.chew 05/18/18 Atorvastatin Calcium [Lipitor] 80 mg PO QHS #90 tablet 05/18/18 Lisinopril/Hydrochlorothiazide [Zestoretic 03/18.5 Tablet] 1 tablet PO DAILY #30 tablet 05/18/18 Following Prescrptions Were Given to Patient: Aspirin [Aspirin, Baby] 81 mg PO DAILY@0800 #90 tab.chew Atorvastatin Calcium [Lipitor] 80 mg PO QHS #90 tablet Lisinopril/Hydrochlorothiazide [Zestoretic 03/18.5 Tablet] 1 tablet PO DAILY #30 tablet Primary Care Physician: Austin Mesa MD [Primary Care Provider] - Please follow up with your Primary Care Physician in: 1 week. Disposition: Home Minutes spent on discharge:: 33 Patient Condition:: Stable Medical Necessity - Tobacco Use Smoking Status: Smoker, status unknown Tobacco Use: Non-smoker Meaningful Use Info Meaningful Use Diagnoses (Choose all that apply): Ischemic CVA - CVA Therapy Assessed for PT,OT and/or ST?: Yes - Ischemic Stroke Antithrombotic order at d/c?: Yes Dx of Atrial fib/flutter?: No Anticoagulant at discharge?: No Reason anticoagulant not ordered: Treatment not Indicated Statins at discharge?: Yes Primary Dx Acute Ischemic CVA?: Yes IV tPA ordered during stay?: No Reason IV t-PA not ordered: Treatment not Indicated Code Visit Inpatient E&M: 71831 Disch Hosp
--- NOTE | 2018-05-18 11:59 | DS.PCM_ITS ---
Discharge Date and Diagnosis Date of Admission: 05/16/18 Date of Discharge: 05/18/18 - Primary Discharge Diagnosis #1 acute ischemic stroke of the right basal ganglia/right frontoparietal region. #2 hypertensive emergency/uncontrolled hypertension. - Secondary Discharge Diagnosis Chronic Problems Depression (Chronic) Psoriasis (Chronic) Hypertension (Chronic) Hospital Course and Treatment Imaging Results: Clinical Impression(s) from Imaging Studies Brain CT 05/16/18 08:32 IMPRESSION: Chronic involutional changes of the brain. Old lacunar infarct in the left basal ganglion. Electronically Signed: Sal Moe MD at 9:12 EST Tel [phone], Service support , Chest X-Ray 05/16/18 08:32 IMPRESSION: Hyperinflation. Scattered calcified pleural plaques in the right hemithorax. Increased density in the right lung apex. Follow-up is recommended. Electronically Signed: Sal Moe MD at 9:11 EST Tel [phone], Service support , Brain MRI 05/16/18 09:59 IMPRESSION: Mild atrophy and ventricular white matter ischemic changes.. Acute ischemic changes within the left basal ganglia extending into the deep white matter tracts in the left frontal parietal region N.B. : The above information has been verbally conveyed by Saurav Talbot MD to aileen goodman RN, on 05/16/2018 20:42:15 (ET). Electronically Signed: Saurav Talbot MD at 20:20 EST , Service support , Head MRA 05/16/18 09:59 IMPRESSION: Normal MRA of the head Electronically Signed: Saurav Talbot MD at 20:25 EST , Service support , Neck MRA 05/16/18 09:59 IMPRESSION: Mild atherosclerotic disease slightly more advanced on the left. No evidence for hemodynamically significant stenosis utilizing NASCET criteria Electronically Signed: Saurav Talbot MD at 20:27 EST , Service support , Dr. Gillis, neurology. Procedures: 2-D Echocardiogram, EKG Summary of Care Provided: Patient seen and examined on the day of discharge and appeared to be stable to be discharged home. Weakness of the left upper extremity is almost gone. Denied any other complaints. His vital signs are stable, blood pressure significantly improved. The patient is a 83 year old M admitted because of left-sided body weakness and facial droop as well as slurred speech and he was found to have acute ischemic stroke of the right basal ganglia/right frontoparietal region. Patient had a history of hypertension and is supposed to take antihypertensive medication that was prescribed almost 1 year ago but he did not. Upon arrival to ER, his blood pressure was elevated and maximum was 190/120. CT scan brain done in the ED and revealed no evidence of acute infarction or hemorrhage, revealed old lacunar infarction of the left basal ganglia. MRI brain done and revealed acute ischemic stroke of the right basal ganglia/right frontoparietal region. MRA of the head and neck revealed no evidence of hemodynamically significant vascular disease or stenosis. His EKG revealed normal sinus rhythm without evidence of acute ischemic changes or cardiac arrhythmias. 2D echocardiogram showed normal LV size and function, ejection fraction of 65% and bubble contrast study that was negative for [id number]-cm-uvoc shunt. Patient was treated with aspirin and high intensity statins. Initially, no treatment given for the high blood pressure to allow permissive hypertension for acute stroke. Later, patient was started on lisinopril/HCTZ and his blood pressure improved. Weakness of the left upper extremity improved. Patient was seen by PT OT and I recommended placement to rehabilitation unit for physical therapy but patient refused and elected to go home. Outpatient physical therapy ordered. Patient discharged home in a stable medical condition, discharged on aspirin and statins, started on lisinopril/HCTZ for hypertension, recommended to check blood pressure at least twice daily, follow-up with PCP in 1 week. - Physical Exam General: Alert, Oriented x3, Cooperative, No apparent distress HEENT: Atraumatic, PERRLA, EOMI, Normocephalic Oral: Moist Mucosa, No Gingival or Mucosal Lesions/ Ulcerations Neck: Supple, No JVD, Negative Carotid Bruits, Trachea Midline, Thyroid Normal Size and Texture Lungs: Clear to auscultation, Normal air movement, No rhonchi, No wheeze, No rales Cardiovascular: Regular rate, Regular Rhythm, Normal S1, Normal S2, No murmurs Abdomen: Bowel Sounds Present, Soft, Non Tender, Non-Distended, No Hepato- splenomegaly Extremities: No clubbing, No cyanosis, No edema Skin: No rashes, No breakdown Neurological: Motor Exam 5/5 strength throughout, - - Minimal left-sided facial droop Psych/Mental Status: Normal Affect, Appropriate, Alert and oriented to time, place, person, mood and affect Vital Signs Temp Pulse Resp BP Pulse Ox 97.8 F 76 16 143/78 H 96 05/18/18 08:36 05/18/18 08:36 05/18/18 08:36 05/18/18 08:36 05/18/18 08:36 Oxygen Flow Rate (L/min) 2 Oxygen Delivery Method Room Air Weight: 175 lb 0.752 oz Body Mass Index (BMI) 26.6 Finger Stick Blood Glucose 118 Intake and Output for Last 24 Hours 05/16/18 05/17/18 05/18/18 23:59 23:59 23:59 Intake Total 1393 / 1393 1418 / 1418 120 / 120 Balance 1393 / 1393 1418 / 1418 120 / 120 Discharge Activity: Return to Normal Activity Weight Bearing Status: Weight bearing as tolerated Call your doctor if you observe: Fever of 101 or Higher, Shortness of breath, Dizziness, Fainting spells, Chest pain, Increased palpitations (irregular heartbeat), Uncontrolled pain Home Medications: Medications to take at Discharge buPROPion XL [Wellbutrin Xl] 300 mg PO DAILY 05/16/18 Aspirin [Aspirin, Baby] 81 mg PO DAILY@0800 #90 tab.chew 05/18/18 Atorvastatin Calcium [Lipitor] 80 mg PO QHS #90 tablet 05/18/18 Lisinopril/Hydrochlorothiazide [Zestoretic 03/18.5 Tablet] 1 tablet PO DAILY #30 tablet 05/18/18 Following Prescrptions Were Given to Patient: Aspirin [Aspirin, Baby] 81 mg PO DAILY@0800 #90 tab.chew Atorvastatin Calcium [Lipitor] 80 mg PO QHS #90 tablet Lisinopril/Hydrochlorothiazide [Zestoretic 03/18.5 Tablet] 1 tablet PO DAILY #30 tablet Primary Care Physician: Austin Mesa MD [Primary Care Provider] - Please follow up with your Primary Care Physician in: 1 week. Disposition: Home Minutes spent on discharge:: 33 Patient Condition:: Stable Medical Necessity - Tobacco Use Smoking Status: Smoker, status unknown Tobacco Use: Non-smoker Meaningful Use Info Meaningful Use Diagnoses (Choose all that apply): Ischemic CVA - CVA Therapy Assessed for PT,OT and/or ST?: Yes - Ischemic Stroke Antithrombotic order at d/c?: Yes Dx of Atrial fib/flutter?: No Anticoagulant at discharge?: No Reason anticoagulant not ordered: Treatment not Indicated Statins at discharge?: Yes Primary Dx Acute Ischemic CVA?: Yes IV tPA ordered during stay?: No Reason IV t-PA not ordered: Treatment not Indicated Code Visit Inpatient E&M: 84011 Disch Hosp
== END 2018-05-18 10:18 | disposition home or self-care (01) | DRG 65 ==
LOC: ED 08:59 → PCU 09:50
PROVIDERS: Admitting Provider Hospitalist; Emergency Provider Emergency Medicine; Family Provider Family Medicine; PCP Family Medicine; Visit Provider Hospitalist
DX: I63.9 Cerebral infarction, unspecified (principal); G81.94 Hemiplegia, unspecified affecting left nondominant side; I16.1 Hypertensive emergency; R29.810 Facial weakness; R47.81 Slurred speech; L40.9 Psoriasis, unspecified; I10 Essential (primary) hypertension; F32.9 Major depressive disorder, single episode, unspecified; Z79.899 Other long term (current) drug therapy; R29.702 NIHSS score 2
CPT/HCPCS: 36415; 70450; 70544; 70549; 70551; 71045; 80048; 80061; 82962; 84484; 85025; 85610; 85730; 93005; 93306; 97161; 97165; 97530; 97535; 97802; 99283; A9585; J7030; A4216

== ENCOUNTER → 2020-01-09 | Outpatient (CLI) | payer MEDICARE, SELFPAY ==
--- NOTE | 2020-01-09 16:55 | RAD_ITS ---
HISTORY: DIARRHEA X 3 MONTHS. PAIN WITH BOWEL MOVEMENT ADDITIONAL HISTORY: None. COMPARISON: None EXAMINATION/TECHNIQUE: XR Abdomen W/ Decub and/or Erect Views Number of images including paperwork: 3 FINDINGS: FREE AIR: None detected. BOWEL GAS PATTERN: Gaseous distention of small bowel loops, nonspecific pattern. Small scattered air-fluid levels. CALCIFICATIONS: No definite urinary tract calculi. ORGANS: No evidence of organomegaly. SOFT TISSUES: Unremarkable. BONES: No acute skeletal findings. Degenerative changes. LOWER CHEST: Unremarkable visible portions. DEVICES: None. RAD/[employer]d [employer] Decub and/or Erect IMPRESSION: Nonspecific bowel gas pattern. at 2301 Reported and signed by: Sheri Medina MD Electronically Signed: Sheri Medina MD at 23:01 EDT Tel , Service support ,
[2020-01-09 17:13] LABS: Absolute Lymphocyte Count 1.27 X10^3/uL (0.83-4.51); Absolute Neutrophil Count 11.7 X10^3/uL (2.0-7.7); Basophil# 0.05 X10^3/uL; Basophil% 0.4 % (0-1); Eosinophil# 0.23 X10^3/uL; Eosinophils% 1.6 % (0-5); Hematocrit 40.8 % (40-54); Hemoglobin 14.1 g/dL (13.0-16.5); Lymphocyte # 1.27 X10^3/ul (4.0); Lymphocyte % 8.9 % (19-41); Mean Corp Hgb Conc 34.6 g/dL (32-36); Mean Corpuscular Volume 92.7 fL (80-94); Mean Platelet Vol. 10.1 fl (6.2-12.0); Monocyte# 0.94 X10^3/uL; Monocyte% 6.6 % (0-10); NRBC Flagged by Analyzer 0 % (0-5); Neutrophil # 11.68 X10^3/uL (2.7-7.7); Neutrophil % 81.9 % (47-70); Platelet Count 211 K/mm3 (150-450); RBC Distribution Width SD 43.5 fl (35.1-43.9); White Blood Count 14.3 K/mm3 (4.4-11.0)
[2020-01-09 18:03] LABS: Vitamin D,25 Hydroxy 28.5 ng/mL
[2020-01-09 18:09] LABS: ALB/GLOB Ratio 1.1 RATIO (0.9-2.4); AST(SGOT) 13 U/L (15-37); Alanine Aminotransfer ALT/SGPT 13 U/L (16-61); Albumin, Serum 3.5 g/dL (3.2-5.0); Alkaline Phosphatase 88 U/L (45-117); Anion Gap 4 (5-15); BUN 37 mg/dL (7-18); BUN/Creat Ratio 14.6 RATIO (10-20); Calcium,Total 8.6 mg/dL (8.5-10.1); Chloride 106 mmol/L (98-107); Creatinine, Serum 2.54 mg/dL (0.70-1.30); EST Glomerular Filtration Rate 26 mL/min (>60); Est Glom Filt Rate - Afr Amer 31 mL/min (>60); Globulin 3.2 g/dL (2.2-4.2); Glucose 97 mg/dL (74-106); Potassium 3.1 mmol/L (3.5-5.1); Protein, Total 6.7 g/dL (6.4-8.2); Sodium Level 139 mmol/L (136-145); Thyroid Stim Hormone (TSH) 1.86 uIU/mL (0.358-3.74)
== END | disposition home or self-care (01) ==
LOC: POLAB3 16:38 → RAD 16:49
PROVIDERS: PCP Family Medicine Geriatric Medicine; Referring Provider Family Medicine Geriatric Medicine; Visit Provider Family Medicine Geriatric Medicine
DX: E55.9 Vitamin D deficiency, unspecified (principal); R53.83 Other fatigue; K56.41 Fecal impaction
CPT/HCPCS: 36415; 74019; 80053; 82306; 84443; 85025

== ENCOUNTER → 2020-01-18 | Outpatient (CLI) | payer MEDICARE, SELFPAY ==
--- NOTE | 2020-01-18 09:28 | US_ITS ---
STUDY: RENAL ULTRASOUND - COMPLETE REASON FOR EXAM: Male, 84 years old. CKD IV TECHNIQUE: Ultrasound evaluation of the kidneys was performed with real-time and static arita-scale imaging. COMPARISON: None. FINDINGS: RIGHT KIDNEY: Normal location of the right kidney, which is normal in size. The right kidney measures 9.5 cm x 4.5 cm x 4.7 cm. There is a normal cortex of the right kidney. The renal cortex measures 1.3 cm. Multiple cysts are seen. The largest measures 2.3 cm x 2.4 cm x 1.7 cm. There are no right renal calculi. There is no right hydronephrosis. DISTAL RIGHT URETER: There is non-visualization of the distal right ureter. There is no demonstrated right ureterovesical junction calculus. There is no demonstrated right ureteral jet. LEFT KIDNEY: Normal location of the left kidney, which is normal in size. The left kidney measures 10.5 cm x 3.7 cm x 5.0 cm. There is a normal cortex of the left kidney. The renal cortex measures 1.9 cm. Multiple renal cysts are seen. The largest measures 2 cm x 1.6 cm x 1.6 cm. There are no left renal calculi. There is no left hydronephrosis. DISTAL LEFT URETER: There is non-visualization of the distal left ureter. There is no demonstrated left ureterovesical junction calculus. There is no demonstrated left ureteral jet. BLADDER: The bladder was only partially filled thus limiting the assessment. US/Kidney and Bladder IMPRESSION: Multiple bilateral renal cysts more prominent on the right side. Electronically Signed: Sal Moe, at 13:24 EDT , Service support ,
== END | disposition home or self-care (01) ==
PROVIDERS: PCP Family Medicine Geriatric Medicine; Referring Provider Family Medicine Geriatric Medicine; Visit Provider Family Medicine Geriatric Medicine
DX: N18.4 Chronic kidney disease, stage 4 (severe) (principal); E87.6 Hypokalemia
CPT/HCPCS: 36415; 76770; 80048

== ENCOUNTER → 2020-01-18 | Outpatient (CLI) | payer MEDICARE, SELFPAY ==
[2020-01-18 12:21] LABS: Anion Gap 4 (5-15); BUN 20 mg/dL (7-18); BUN/Creat Ratio 12.1 RATIO (10-20); Calcium,Total 8.7 mg/dL (8.5-10.1); Chloride 110 mmol/L (98-107); Creatinine, Serum 1.65 mg/dL (0.70-1.30); EST Glomerular Filtration Rate 43 mL/min (>60); Est Glom Filt Rate - Afr Amer 51 mL/min (>60); Glucose 96 mg/dL (74-106); Potassium 4.5 mmol/L (3.5-5.1); Sodium Level 140 mmol/L (136-145)
== END | disposition home or self-care (01) ==
LOC: POLAB3 09:59
PROVIDERS: PCP Family Medicine Geriatric Medicine; Visit Provider Family Medicine Geriatric Medicine
DX: E87.6 Hypokalemia (principal)
CPT/HCPCS: 36415; 80048

== ENCOUNTER → 2020-02-08 | Outpatient (CLI) | payer MEDICARE, SELFPAY ==
[2020-02-08 12:53] LABS: Anion Gap 4 (5-15); BUN 22 mg/dL (7-18); Calcium,Total 8.6 mg/dL (8.5-10.1); Chloride 113 mmol/L (98-107); Creatinine, Serum 1.47 mg/dL (0.70-1.30); EST Glomerular Filtration Rate 49 mL/min (>60); Est Glom Filt Rate - Afr Amer 59 mL/min (>60); Glucose 120 mg/dL (74-106); Potassium 3.8 mmol/L (3.5-5.1); Sodium Level 143 mmol/L (136-145)
[2020-02-08 12:57] LABS: Vitamin D,25 Hydroxy 28.2 ng/mL
== END | disposition home or self-care (01) ==
LOC: POLAB3 11:36
PROVIDERS: PCP Family Medicine Geriatric Medicine; Visit Provider Family Medicine Geriatric Medicine
DX: E55.9 Vitamin D deficiency, unspecified (principal); E87.6 Hypokalemia
CPT/HCPCS: 36415; 80048; 82306

== ENCOUNTER → 2020-02-27 | Outpatient (CLI) | payer MEDICARE, SELFPAY ==
[2020-02-27 12:53] LABS: Albumin, Serum 3.7 g/dL (3.2-5.0); BUN 23 mg/dL (7-18); BUN/Creat Ratio 14.2 RATIO (10-20); Calcium,Total 9.2 mg/dL (8.5-10.1); Chloride 108 mmol/L (98-107); Creatinine, Serum 1.62 mg/dL (0.70-1.30); EST Glomerular Filtration Rate 43 mL/min (>60); Est Glom Filt Rate - Afr Amer 53 mL/min (>60); Glucose 89 mg/dL (74-106); Phosphorus 2.7 mg/dL (2.5-4.9); Potassium 4.2 mmol/L (3.5-5.1); Sodium Level 143 mmol/L (136-145)
[2020-02-27 13:17] LABS: PTHIN 71.5 pg/mL (18.4-80.1)
== END | disposition home or self-care (01) ==
PROVIDERS: PCP Family Medicine Geriatric Medicine; Visit Provider Internal Medicine Nephrology
DX: N17.9 Acute kidney failure, unspecified (principal)
CPT/HCPCS: 36415; 80069; 83970

== ENCOUNTER → 2020-04-10 09:01 | Outpatient (CLI) | payer MEDICARE, SELFPAY ==
[2020-04-10 12:43] LABS: Absolute Neutrophil Count 6.3 X10^3/uL (2.0-7.7); Basophil# 0.05 X10^3/uL; Basophil% 0.6 % (0-1); Eosinophil# 0.28 X10^3/uL; Eosinophils% 3.2 % (0-5); Hematocrit 44.6 % (40-54); Hemoglobin 14.8 g/dL (13.0-16.5); Lymphocyte % 14.8 % (19-41); Mean Corp Hgb Conc 33.2 g/dL (32-36); Mean Corpuscular Hgb 31.7 pg (27.0-32.0); Mean Corpuscular Volume 95.5 fL (80-94); Mean Platelet Vol. 10.7 fl (6.2-12.0); Monocyte# 0.83 X10^3/uL; Monocyte% 9.4 % (0-10); NRBC Flagged by Analyzer 0 % (0-5); Neutrophil # 6.31 X10^3/uL (2.7-7.7); Neutrophil % 71.7 % (47-70); Platelet Count 170 K/mm3 (150-450); RBC Distribution Width CV 12.6 % (11.6-14.6); RBC Distribution Width SD 43.2 fl (35.1-43.9); Red Blood Count 4.67 M/mm3 (4.6-6.2); White Blood Count 8.8 K/mm3 (4.4-11.0)
[2020-04-10 13:20] LABS: ALB/GLOB Ratio 1.1 RATIO (0.9-2.4); AST(SGOT) 20 U/L (15-37); Alanine Aminotransfer ALT/SGPT 31 U/L (16-61); Albumin, Serum 3.8 g/dL (3.2-5.0); Alkaline Phosphatase 158 U/L (45-117); Anion Gap 6 (5-15); BUN 25 mg/dL (7-18); BUN/Creat Ratio 16.3 RATIO (10-20); Calcium,Total 9.4 mg/dL (8.5-10.1); Chloride 108 mmol/L (98-107); Creatinine, Serum 1.53 mg/dL (0.70-1.30); EST Glomerular Filtration Rate 46 mL/min (>60); Est Glom Filt Rate - Afr Amer 56 mL/min (>60); Globulin 3.4 g/dL (2.2-4.2); Glucose 73 mg/dL (74-106); Protein, Total 7.2 g/dL (6.4-8.2); Sodium Level 142 mmol/L (136-145); Thyroid Stim Hormone (TSH) 2.19 uIU/mL (0.358-3.74)
[2020-04-10 18:57] LABS: Vitamin D,25 Hydroxy 27.6 ng/mL
== END ==
PROVIDERS: PCP Family Medicine Geriatric Medicine; Visit Provider Family Medicine Geriatric Medicine
DX: E55.9 Vitamin D deficiency, unspecified (principal); I10 Essential (primary) hypertension
CPT/HCPCS: 36415; 80053; 82306; 84443; 85025

== ENCOUNTER → 2020-07-11 11:17 | Outpatient (CLI) | payer MEDICARE, SELFPAY ==
[2020-07-11 12:09] LABS: Absolute Lymphocyte Count 1.16 X10^3/uL (0.83-4.51); Absolute Neutrophil Count 6.1 X10^3/uL (2.0-7.7); Basophil# 0.06 X10^3/uL; Basophil% 0.7 % (0-1); Eosinophil# 0.15 X10^3/uL; Eosinophils% 1.8 % (0-5); Hematocrit 42.5 % (40-54); Hemoglobin 14.1 g/dL (13.0-16.5); Lymphocyte # 1.16 X10^3/ul (4.0); Lymphocyte % 14.1 % (19-41); Mean Corp Hgb Conc 33.2 g/dL (32-36); Mean Corpuscular Hgb 31.1 pg (27.0-32.0); Mean Corpuscular Volume 93.6 fL (80-94); Mean Platelet Vol. 10.6 fl (6.2-12.0); Monocyte# 0.74 X10^3/uL; NRBC Flagged by Analyzer 0 % (0-5); Neutrophil # 6.06 X10^3/uL (2.7-7.7); Platelet Count 202 K/mm3 (150-450); RBC Distribution Width CV 12.8 % (11.6-14.6); RBC Distribution Width SD 43.8 fl (35.1-43.9); Red Blood Count 4.54 M/mm3 (4.6-6.2); White Blood Count 8.2 K/mm3 (4.4-11.0)
[2020-07-11 12:29] LABS: Vitamin D,25 Hydroxy 34.5 ng/mL
[2020-07-11 12:48] LABS: ALB/GLOB Ratio 1.2 RATIO (0.9-2.4); AST(SGOT) 27 U/L (15-37); Alanine Aminotransfer ALT/SGPT 26 U/L (16-61); Albumin, Serum 3.7 g/dL (3.2-5.0); Alkaline Phosphatase 120 U/L (45-117); Anion Gap 6 (5-15); BUN 29 mg/dL (7-18); BUN/Creat Ratio 19.3 RATIO (10-20); Calcium,Total 9.2 mg/dL (8.5-10.1); Chloride 108 mmol/L (98-107); EST Glomerular Filtration Rate 47 mL/min (>60); Est Glom Filt Rate - Afr Amer 57 mL/min (>60); Globulin 3.2 g/dL (2.2-4.2); Glucose 87 mg/dL (74-106); Potassium 4.2 mmol/L (3.5-5.1); Protein, Total 6.9 g/dL (6.4-8.2); Sodium Level 139 mmol/L (136-145); Thyroid Stim Hormone (TSH) 1.91 uIU/mL (0.358-3.74)
== END ==
PROVIDERS: PCP Family Medicine Geriatric Medicine; Visit Provider Family Medicine Geriatric Medicine
DX: E55.9 Vitamin D deficiency, unspecified (principal); I10 Essential (primary) hypertension
CPT/HCPCS: 36415; 80053; 82306; 84443; 85025

== ENCOUNTER → 2020-08-20 09:56 | Outpatient (CLI) | payer MEDICARE, SELFPAY ==
[2020-08-20 12:29] LABS: Hematocrit 42.9 % (40-54); Mean Corp Hgb Conc 32.6 g/dL (32-36); Mean Corpuscular Hgb 31.3 pg (27.0-32.0); Mean Corpuscular Volume 95.8 fL (80-94); Mean Platelet Vol. 10.5 fl (6.2-12.0); Platelet Count 176 K/mm3 (150-450); RBC Distribution Width CV 12.7 % (11.6-14.6); RBC Distribution Width SD 44.2 fl (35.1-43.9); Red Blood Count 4.48 M/mm3 (4.6-6.2); White Blood Count 7.5 K/mm3 (4.4-11.0)
[2020-08-20 12:37] LABS: Albumin, Serum 3.7 g/dL (3.2-5.0); BUN 26 mg/dL (7-18); BUN/Creat Ratio 16.4 RATIO (10-20); Chloride 109 mmol/L (98-107); Creatinine, Serum 1.59 mg/dL (0.70-1.30); EST Glomerular Filtration Rate 44 mL/min (>60); Est Glom Filt Rate - Afr Amer 54 mL/min (>60); Glucose 77 mg/dL (74-106); Phosphorus 2.7 mg/dL (2.5-4.9); Potassium 3.9 mmol/L (3.5-5.1); Sodium Level 141 mmol/L (136-145)
== END ==
PROVIDERS: PCP Family Medicine Geriatric Medicine; Visit Provider Internal Medicine Nephrology
DX: N18.30 Chronic kidney disease, stage 3 unspecified (principal)
CPT/HCPCS: 36415; 80069; 85027

== ENCOUNTER → 2020-10-10 10:05 | Outpatient (CLI) | payer MEDICARE, SELFPAY ==
[2020-10-10 12:15] LABS: Absolute Neutrophil Count 7.1 X10^3/uL (2.0-7.7); Basophil# 0.05 X10^3/uL; Basophil% 0.5 % (0-1); Eosinophil# 0.13 X10^3/uL; Eosinophils% 1.4 % (0-5); Hematocrit 48.2 % (40-54); Hemoglobin 15.9 g/dL (13.0-16.5); Mean Corpuscular Hgb 30.7 pg (27.0-32.0); Mean Corpuscular Volume 93.1 fL (80-94); Mean Platelet Vol. 10.7 fl (6.2-12.0); Monocyte# 0.73 X10^3/uL; Monocyte% 7.9 % (0-10); NRBC Flagged by Analyzer 0 % (0-5); Neutrophil % 76.8 % (47-70); Platelet Count 213 K/mm3 (150-450); RBC Distribution Width CV 12.7 % (11.6-14.6); RBC Distribution Width SD 43.4 fl (35.1-43.9); Red Blood Count 5.18 M/mm3 (4.6-6.2); White Blood Count 9.3 K/mm3 (4.4-11.0)
[2020-10-10 12:46] LABS: ALB/GLOB Ratio 1.3 RATIO (0.9-2.4); AST(SGOT) 11 U/L (15-37); Alanine Aminotransfer ALT/SGPT 20 U/L (16-61); Albumin, Serum 3.8 g/dL (3.2-5.0); Alkaline Phosphatase 124 U/L (45-117); Anion Gap 7 (5-15); BUN 28 mg/dL (7-18); BUN/Creat Ratio 18.8 RATIO (10-20); Chloride 106 mmol/L (98-107); Creatinine, Serum 1.49 mg/dL (0.70-1.30); EST Glomerular Filtration Rate 48 mL/min (>60); Est Glom Filt Rate - Afr Amer 58 mL/min (>60); Globulin 2.9 g/dL (2.2-4.2); Glucose 77 mg/dL (74-106); Potassium 4.5 mmol/L (3.5-5.1); Protein, Total 6.7 g/dL (6.4-8.2); Sodium Level 142 mmol/L (136-145); Thyroid Stim Hormone (TSH) 2.47 uIU/mL (0.358-3.74)
== END ==
PROVIDERS: PCP Family Medicine Geriatric Medicine; Visit Provider Family Medicine Geriatric Medicine
DX: I10 Essential (primary) hypertension (principal); E55.9 Vitamin D deficiency, unspecified
CPT/HCPCS: 36415; 80053; 82306; 84443; 85025

== ENCOUNTER → 2021-01-09 09:25 | Outpatient (CLI) | payer MEDICARE, SELFPAY ==
[2021-01-09 11:11] LABS: Absolute Lymphocyte Count 1.06 X10^3/uL (0.83-4.51); Absolute Neutrophil Count 7.7 X10^3/uL (2.0-7.7); Basophil# 0.05 X10^3/uL; Basophil% 0.5 % (0-1); Eosinophil# 0.13 X10^3/uL; Eosinophils% 1.3 % (0-5); Hematocrit 46.4 % (40-54); Hemoglobin 15.8 g/dL (13.0-16.5); Lymphocyte # 1.06 X10^3/ul (0.83-4.51); Lymphocyte % 10.9 % (19-41); Mean Corp Hgb Conc 34.1 g/dL (32-36); Mean Corpuscular Hgb 31.8 pg (27.0-32.0); Mean Corpuscular Volume 93.4 fL (80-94); Mean Platelet Vol. 10.5 fl (6.2-12.0); Monocyte# 0.78 X10^3/uL; NRBC Flagged by Analyzer 0 % (0-5); Neutrophil # 7.69 X10^3/uL (2.7-7.7); Platelet Count 180 K/mm3 (150-450); RBC Distribution Width CV 13.2 % (11.6-14.6); RBC Distribution Width SD 44.8 fl (35.1-43.9); Red Blood Count 4.97 M/mm3 (4.6-6.2); White Blood Count 9.7 K/mm3 (4.4-11.0)
[2021-01-09 11:23] LABS: Vitamin D,25 Hydroxy 33.8 ng/mL
[2021-01-09 11:27] LABS: ALB/GLOB Ratio 1.2 RATIO (0.9-2.4); AST(SGOT) 18 U/L (15-37); Alanine Aminotransfer ALT/SGPT 25 U/L (16-61); Albumin, Serum 3.7 g/dL (3.2-5.0); Alkaline Phosphatase 106 U/L (45-117); Anion Gap 7 (5-15); BUN 28 mg/dL (7-18); BUN/Creat Ratio 18.3 RATIO (10-20); Calcium,Total 8.9 mg/dL (8.5-10.1); Chloride 108 mmol/L (98-107); Creatinine, Serum 1.53 mg/dL (0.70-1.30); EST Glomerular Filtration Rate 46 mL/min (>60); Est Glom Filt Rate - Afr Amer 56 mL/min (>60); Globulin 3.1 g/dL (2.2-4.2); Glucose 87 mg/dL (74-106); Potassium 4.7 mmol/L (3.5-5.1); Protein, Total 6.8 g/dL (6.4-8.2); Sodium Level 140 mmol/L (136-145); Thyroid Stim Hormone (TSH) 1.52 uIU/mL (0.358-3.74)
== END ==
PROVIDERS: PCP Family Medicine Geriatric Medicine; Visit Provider Family Medicine Geriatric Medicine
DX: E55.9 Vitamin D deficiency, unspecified (principal); I10 Essential (primary) hypertension
CPT/HCPCS: 36415; 80053; 82306; 84443; 85025

== ENCOUNTER → 2021-04-22 09:20 | Outpatient (CLI) | payer MEDICARE, SELFPAY ==
[2021-04-22 12:37] LABS: Hematocrit 45.9 % (40-54); Hemoglobin 15.3 g/dL (13.0-16.5); Mean Corp Hgb Conc 33.3 g/dL (32-36); Mean Corpuscular Hgb 32.3 pg (27.0-32.0); Mean Platelet Vol. 10.4 fl (6.2-12.0); Platelet Count 182 K/mm3 (150-450); RBC Distribution Width CV 12.9 % (11.6-14.6); RBC Distribution Width SD 46.3 fl (35.1-43.9); Red Blood Count 4.73 M/mm3 (4.6-6.2)
[2021-04-22 12:42] LABS: Albumin, Serum 3.5 g/dL (3.2-5.0); BUN 25 mg/dL (7-18); Chloride 107 mmol/L (98-107); Creatinine, Serum 1.39 mg/dL (0.70-1.30); EST Glomerular Filtration Rate 52 mL/min (>60); Est Glom Filt Rate - Afr Amer 63 mL/min (>60); Glucose 88 mg/dL (74-106); Phosphorus 2.5 mg/dL (2.5-4.9); Potassium 4.2 mmol/L (3.5-5.1); Sodium Level 140 mmol/L (136-145)
[2021-04-22 13:04] LABS: PTHIN 67.3 pg/mL (18.4-80.1)
== END ==
PROVIDERS: PCP Family Medicine Geriatric Medicine; Visit Provider Internal Medicine Nephrology
DX: N18.30 Chronic kidney disease, stage 3 unspecified (principal)
CPT/HCPCS: 36415; 80069; 83970; 85027

== ENCOUNTER 2021-07-16 10:20 | Outpatient (CLI) | payer MEDICARE, SELFPAY ==
[2021-07-16 12:28] LABS: Absolute Lymphocyte Count 1.08 X10^3/uL (0.83-4.51); Absolute Neutrophil Count 7.4 X10^3/uL (2.0-7.7); Basophil# 0.04 X10^3/uL; Basophil% 0.4 % (0-1); Eosinophils% 2.1 % (0-5); Hematocrit 49.1 % (40-54); Hemoglobin 16.8 g/dL (13.0-16.5); Lymphocyte # 1.08 X10^3/ul (0.83-4.51); Lymphocyte % 11.2 % (19-41); Mean Corp Hgb Conc 34.2 g/dL (32-36); Mean Corpuscular Hgb 32.3 pg (27.0-32.0); Mean Corpuscular Volume 94.4 fL (80-94); Mean Platelet Vol. 10.9 fl (6.2-12.0); Monocyte# 0.89 X10^3/uL; Monocyte% 9.2 % (0-10); NRBC Flagged by Analyzer 0 % (0-5); Neutrophil # 7.38 X10^3/uL (2.7-7.7); Neutrophil % 76.6 % (47-70); Platelet Count 192 K/mm3 (150-450); RBC Distribution Width CV 12.9 % (11.6-14.6); RBC Distribution Width SD 44.3 fl (35.1-43.9); White Blood Count 9.6 K/mm3 (4.4-11.0)
[2021-07-16 13:14] LABS: Vitamin D,25 Hydroxy 35.9 ng/mL
[2021-07-16 13:24] LABS: ALB/GLOB Ratio 1.1 RATIO (0.9-2.4); AST(SGOT) 17 U/L (15-37); Alanine Aminotransfer ALT/SGPT 21 U/L (16-61); Albumin, Serum 3.7 g/dL (3.2-5.0); Alkaline Phosphatase 126 U/L (45-117); Anion Gap 6 (5-15); BUN 22 mg/dL (7-18); BUN/Creat Ratio 14.8 RATIO (10-20); Calcium,Total 9.1 mg/dL (8.5-10.1); Chloride 108 mmol/L (98-107); Creatinine, Serum 1.49 mg/dL (0.70-1.30); EST Glomerular Filtration Rate 48 mL/min (>60); Est Glom Filt Rate - Afr Amer 58 mL/min (>60); Globulin 3.3 g/dL (2.2-4.2); Glucose 91 mg/dL (74-106); Potassium 4.7 mmol/L (3.5-5.1); Sodium Level 141 mmol/L (136-145); Thyroid Stim Hormone (TSH) 1.58 uIU/mL (0.358-3.74)
== END 2021-07-16 23:59 | disposition home or self-care (01) ==
LOC: POLAB3 10:21
PROVIDERS: PCP Family Medicine Geriatric Medicine; Visit Provider Family Medicine Geriatric Medicine
DX: I10 Essential (primary) hypertension (principal); E55.9 Vitamin D deficiency, unspecified
CPT/HCPCS: 36415; 80053; 82306; 84443; 85025

== ENCOUNTER 2021-09-09 14:50 | Outpatient (CLI) | payer MEDICARE, SELFPAY ==
[2021-09-09 17:24] LABS: Absolute Lymphocyte Count 1.01 X10^3/uL (0.83-4.51); Basophil# 0.06 X10^3/uL; Basophil% 0.7 % (0-1); Eosinophil# 0.19 X10^3/uL; Eosinophils% 2.1 % (0-5); Hematocrit 47.8 % (40-54); Hemoglobin 16.1 g/dL (13.0-16.5); Lymphocyte # 1.01 X10^3/ul (0.83-4.51); Lymphocyte % 11.1 % (19-41); Mean Corp Hgb Conc 33.7 g/dL (32-36); Mean Corpuscular Hgb 31.6 pg (27.0-32.0); Mean Corpuscular Volume 93.9 fL (80-94); Mean Platelet Vol. 10.5 fl (6.2-12.0); Monocyte# 0.81 X10^3/uL; Monocyte% 8.9 % (0-10); NRBC Flagged by Analyzer 0 % (0-5); Neutrophil % 76.9 % (47-70); Platelet Count 151 K/mm3 (150-450); RBC Distribution Width CV 12.9 % (11.6-14.6); RBC Distribution Width SD 44.2 fl (35.1-43.9); Red Blood Count 5.09 M/mm3 (4.6-6.2); White Blood Count 9.1 K/mm3 (4.4-11.0)
[2021-09-09 17:33] LABS: Anion Gap 5 (5-15); BUN 28 mg/dL (7-18); BUN/Creat Ratio 19.2 RATIO (10-20); Calcium,Total 8.7 mg/dL (8.5-10.1); Chloride 107 mmol/L (98-107); Creatinine, Serum 1.46 mg/dL (0.70-1.30); EST Glomerular Filtration Rate 49 mL/min (>60); Est Glom Filt Rate - Afr Amer 59 mL/min (>60); Glucose 95 mg/dL (74-106); Potassium 4.7 mmol/L (3.5-5.1); Sodium Level 139 mmol/L (136-145); Thyroid Stim Hormone (TSH) 1.87 uIU/mL (0.358-3.74)
== END 2021-09-09 23:59 | disposition home or self-care (01) ==
LOC: POLAB3 14:51
PROVIDERS: PCP Family Medicine Geriatric Medicine; Visit Provider Family Medicine Geriatric Medicine
DX: G93.40 Encephalopathy, unspecified (principal); R53.83 Other fatigue
CPT/HCPCS: 36415; 80048; 84443; 85025

== ENCOUNTER → 2021-10-15 | Outpatient (CLI) | payer MEDICARE, SELFPAY ==
[2021-10-15 12:34] LABS: Absolute Lymphocyte Count 1.16 X10^3/uL (0.83-4.51); Absolute Neutrophil Count 6.1 X10^3/uL (2.0-7.7); Basophil# 0.05 X10^3/uL; Basophil% 0.6 % (0-1); Eosinophil# 0.18 X10^3/uL; Eosinophils% 2.2 % (0-5); Hematocrit 45.2 % (40-54); Hemoglobin 15.4 g/dL (13.0-16.5); Lymphocyte # 1.16 X10^3/ul (0.83-4.51); Lymphocyte % 14.2 % (19-41); Mean Corp Hgb Conc 34.1 g/dL (32-36); Mean Platelet Vol. 10.4 fl (6.2-12.0); Monocyte# 0.69 X10^3/uL; Monocyte% 8.4 % (0-10); NRBC Flagged by Analyzer 0 % (0-5); Neutrophil # 6.09 X10^3/uL (2.7-7.7); Neutrophil % 74.4 % (47-70); Platelet Count 150 K/mm3 (150-450); RBC Distribution Width SD 45.1 fl (35.1-43.9); Red Blood Count 4.81 M/mm3 (4.6-6.2); White Blood Count 8.2 K/mm3 (4.4-11.0)
[2021-10-15 12:40] LABS: Vitamin D,25 Hydroxy 40.9 ng/mL
[2021-10-15 13:12] LABS: ALB/GLOB Ratio 1.2 RATIO (0.9-2.4); AST(SGOT) 14 U/L (15-37); Alanine Aminotransfer ALT/SGPT 23 U/L (16-61); Albumin, Serum 3.6 g/dL (3.2-5.0); Alkaline Phosphatase 101 U/L (45-117); Anion Gap 5 (5-15); BUN 29 mg/dL (7-18); BUN/Creat Ratio 17.1 RATIO (10-20); Calcium,Total 8.8 mg/dL (8.5-10.1); Chloride 109 mmol/L (98-107); EST Glomerular Filtration Rate 41 mL/min (>60); Est Glom Filt Rate - Afr Amer 50 mL/min (>60); Glucose 87 mg/dL (74-106); Potassium 4.8 mmol/L (3.5-5.1); Protein, Total 6.6 g/dL (6.4-8.2); Sodium Level 141 mmol/L (136-145); Thyroid Stim Hormone (TSH) 1.53 uIU/mL (0.358-3.74)
== END | disposition home or self-care (01) ==
LOC: POLAB3 10:56
PROVIDERS: PCP Family Medicine Geriatric Medicine; Visit Provider Family Medicine Geriatric Medicine
DX: I10 Essential (primary) hypertension (principal); E55.9 Vitamin D deficiency, unspecified
CPT/HCPCS: 36415; 80053; 82306; 84443; 85025

== ENCOUNTER → 2022-01-15 | Outpatient (CLI) | payer MEDICARE, SELFPAY ==
[2022-01-15 12:04] LABS: Absolute Lymphocyte Count 1.13 X10^3/uL (0.83-4.51); Absolute Neutrophil Count 8.6 X10^3/uL (2.0-7.7); Basophil# 0.06 X10^3/uL; Basophil% 0.6 % (0-1); Eosinophil# 0.17 X10^3/uL; Eosinophils% 1.6 % (0-5); Hematocrit 43.3 % (40-54); Lymphocyte # 1.13 X10^3/ul (0.83-4.51); Lymphocyte % 10.4 % (19-41); Mean Corp Hgb Conc 34.6 g/dL (32-36); Mean Corpuscular Hgb 32.1 pg (27.0-32.0); Mean Corpuscular Volume 92.7 fL (80-94); Monocyte# 0.82 X10^3/uL; Monocyte% 7.6 % (0-10); NRBC Flagged by Analyzer 0 % (0-5); Neutrophil # 8.63 X10^3/uL (2.7-7.7); Neutrophil % 79.5 % (47-70); Platelet Count 162 K/mm3 (150-450); Red Blood Count 4.67 M/mm3 (4.6-6.2); White Blood Count 10.8 K/mm3 (4.4-11.0)
[2022-01-15 12:36] LABS: Vitamin D,25 Hydroxy 43.2 ng/mL
[2022-01-15 13:00] LABS: ALB/GLOB Ratio 1.2 RATIO (0.9-2.4); AST(SGOT) 18 U/L (15-37); Alanine Aminotransfer ALT/SGPT 19 U/L (16-61); Albumin, Serum 3.7 g/dL (3.2-5.0); Alkaline Phosphatase 102 U/L (45-117); Anion Gap 4 (5-15); BUN 26 mg/dL (7-18); BUN/Creat Ratio 17.3 RATIO (10-20); Calcium,Total 8.7 mg/dL (8.5-10.1); Chloride 110 mmol/L (98-107); EST Glomerular Filtration Rate 47 mL/min (>60); Est Glom Filt Rate - Afr Amer 57 mL/min (>60); Globulin 3.1 g/dL (2.2-4.2); Glucose 92 mg/dL (74-106); Potassium 4.2 mmol/L (3.5-5.1); Protein, Total 6.8 g/dL (6.4-8.2); Sodium Level 140 mmol/L (136-145); Thyroid Stim Hormone (TSH) 1.86 uIU/mL (0.358-3.74)
== END | disposition home or self-care (01) ==
PROVIDERS: PCP Family Medicine Geriatric Medicine; Visit Provider Family Medicine Geriatric Medicine
DX: I12.9 Hypertensive chronic kidney disease with stage 1 through stage 4 chronic kidney disease, or unspecified chronic kidney disease (principal); N18.31 Chronic kidney disease, stage 3a; E55.9 Vitamin D deficiency, unspecified
CPT/HCPCS: 36415; 80053; 82306; 84443; 85025

== ENCOUNTER → 2022-04-15 | Outpatient (CLI) | payer MEDICARE, SELFPAY ==
[2022-04-15 14:07] LABS: Absolute Lymphocyte Count 1.02 X10^3/uL (0.83-4.51); Absolute Neutrophil Count 6.6 X10^3/uL (2.0-7.7); Basophil# 0.04 X10^3/uL; Basophil% 0.5 % (0-1); Eosinophil# 0.14 X10^3/uL; Eosinophils% 1.6 % (0-5); Hemoglobin 16.3 g/dL (13.0-16.5); Lymphocyte # 1.02 X10^3/ul (0.83-4.51); Mean Corp Hgb Conc 34.7 g/dL (32-36); Mean Corpuscular Volume 92.3 fL (80-94); Mean Platelet Vol. 10.7 fl (6.2-12.0); Monocyte# 0.67 X10^3/uL; Monocyte% 7.9 % (0-10); NRBC Flagged by Analyzer 0 % (0-5); Neutrophil % 77.8 % (47-70); Platelet Count 160 K/mm3 (150-450); RBC Distribution Width CV 12.4 % (11.6-14.6); RBC Distribution Width SD 42.2 fl (35.1-43.9); Red Blood Count 5.09 M/mm3 (4.6-6.2); White Blood Count 8.5 K/mm3 (4.4-11.0)
[2022-04-15 14:29] LABS: Vitamin D,25 Hydroxy 37.2 ng/mL
[2022-04-15 14:42] LABS: ALB/GLOB Ratio 1.2 RATIO (0.9-2.4); AST(SGOT) 14 U/L (15-37); Alanine Aminotransfer ALT/SGPT 18 U/L (16-61); Albumin, Serum 3.7 g/dL (3.2-5.0); Alkaline Phosphatase 110 U/L (45-117); Anion Gap 6 (5-15); BUN 25 mg/dL (7-18); BUN/Creat Ratio 16.3 RATIO (10-20); Calcium,Total 8.8 mg/dL (8.5-10.1); Chloride 105 mmol/L (98-107); Creatinine, Serum 1.53 mg/dL (0.70-1.30); EST Glomerular Filtration Rate 46 mL/min (>60); Est Glom Filt Rate - Afr Amer 56 mL/min (>60); Globulin 3.2 g/dL (2.2-4.2); Glucose 83 mg/dL (74-106); Potassium 4.4 mmol/L (3.5-5.1); Protein, Total 6.9 g/dL (6.4-8.2); Sodium Level 140 mmol/L (136-145); Thyroid Stim Hormone (TSH) 2.08 uIU/mL (0.358-3.74)
== END | disposition home or self-care (01) ==
LOC: POLAB3 09:08
PROVIDERS: PCP Family Medicine Geriatric Medicine; Visit Provider Family Medicine Geriatric Medicine
DX: I10 Essential (primary) hypertension (principal); E55.9 Vitamin D deficiency, unspecified
CPT/HCPCS: 36415; 80053; 82306; 84443; 85025

== ENCOUNTER 2022-05-03 14:30 | Inpatient (IN) | payer MEDICARE, SELFPAY ==
[2022-05-03 14:32] VITALS: BMI 23.3
--- NOTE | 2022-05-03 14:36 | HP.PCM.HOS_ITS ---
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 Patient presented to outside hospital with an acute left intertrochanteric hip fracture. Patient denies any hitting his head but he did do a head CT that was unremarkable. Patient was noted to be in A. fib but currently this is a chronic diagnosis but the patient does not take anticoagulation other than aspirin. He has no history of any melena or hematochezia. Patient lives independently and is able to go up and down stairs and able to clean his house and do yard work without any chest pain or shortness of breath. [facility] Medical History (Updated 05/03/22 @ 14:[address] Eliud Hines, ) A-fib Depression HTN (hypertension) Stroke/cerebrovascular accident Home Medications bupropion HCl 300 mg 24 hr tablet, extended release 300 mg PO DAILY ANXIETY/DEPRESSION 05/16/18 [History Last Taken 05/16/18 300 MG] aspirin 81 mg chewable tablet 81 mg PO DAILY@0800 ##90 05/18/18 [Rx Last Taken Unknown] atorvastatin 80 mg tablet 80 mg PO QHS ##90 05/18/18 [Rx Last Taken Unknown] lisinopril 10 mg-hydrochlorothiazide 12.5 mg tablet (Zestoretic) 1 tab PO DAILY ##30 05/18/18 [Rx Last Taken Unknown] Allergy/AdvReac Type Severity Reaction Status Date / Time No Known Allergies Allergy Verified 05/16/18 08:25 Social History Smoking Status: Never smoker ROS ROS Narrative Hard of hearing. ROS Physical Exam Const alert and no apparent distress Resp normal respiratory effort, no retractions, no use of accessory muscles and clear to auscultation bilaterally Cardio regular rate, regular rhythm, S1 normal heart sound and S2 normal heart sound GI normal to inspection, nondistended, normoactive bowel sounds, soft to palpation and non-tender Extremity Extremity Narrative: +2 dorsalis pedal pulses bilaterally Neuro oriented x3 Results Lab / Micro Data Attestation: I reviewed the patient's lab results. Lab results narrative: CBC from outside hospital showed white count of 12, hemoglobin 16.4 and platelets 166 BMP sodium 142, potassium 4.5, creatinine 1.4 Lactate was 3.4 Influenza negative, COVID-negative Head CT showed no acute evidence of acute cortical infarct or intraparenchymal hemorrhage. Left hip x-ray showed acute left intertrochanteric fracture. No dislocation. CT of cervical spine showed no evidence of acute fracture or subluxation. Did make note of upper lobe infiltrate. Assessment & Plan Assessment/Plan (1) Closed left hip fracture: PLAN: Status post mechanical fall NQSIP performed and shows the patient is slightly higher than average risk for serious complications, pneumonia, cardiac complications, and discharged to a alf. With that, the patient is otherwise medically optimized to proceed with surgery. Dr. Sales was contacted at the OSH and agree to see the patient in consultation. Bedrest. NPO after midnight. Hold ASA. (2) A-fib: PLAN: Chronic diagnosis and rate controlled Not on anticoagulation [id number] of3. Patient has no contraindications to anticoagulation. Will initiate anticoagulation after surgery and check an echocardiogram PLAN: Plan Patient did have some questionable infiltrate on his CT of his neck. We will check chest x-ray to see if there is definitive pneumonia. Concerning given his a mild leukocytosis and lactic acidosis. VTE prophylaxis with SCDs. Case discussed with patient's daughter at bedside Charges/Coding Visit Charges Inpatient E&M: 48562 Init Hosp L2
--- NOTE | 2022-05-03 14:55 | ECHOD_ITS ---
Reason For Study: AFIB Procedure This was a 2D Doppler, Color Flow transthoracic echocardiogram. Exam performed portable in patient room. Left Ventricle Normal LV size. Left ventricular systolic function is normal. The estimated ejection fraction is 60 %. No regional wall motion abnormalities noted. Right Ventricle Normal RV size. Normal systolic function. Atria The left atrium is mildly enlarged. The right atrium is moderately enlarged. Mitral Valve There is mild to moderate mitral annular calcification. Mild-Moderate (1-2+) eccentric mitral valve insufficiency. Tricuspid Valve Normal tricuspid valve. Mild tricuspid valve insufficiency. Pulmonary artery systolic pressure is 34 mmHg. Aortic Valve Trisinus/trileaflet aortic valve. Mild focal aortic valve calcification. Pulmonic Valve Normal pulmonic valve. Great Vessels Normal aortic root. The pulmonary artery is normal size. Normal inferior vena cava. Pericardium/Pleural No pericardial effusion. MMode/2D Measurements & Calculations LVIDd: 3.9 cm IVSd: 1.1 cm Ao root diam: 3.2 cm LVIDs: 2.7 cm LVPWd: 1.2 cm RVDd: 3.2 cm FS: 32.0 % LAV(MOD-sp4): 53.3 ml LVAd ap4: 21.3 cm2 SV(MOD-sp4): 36.1 ml LVLd ap4: 7.1 cm EDV(MOD-sp4): 51.2 ml EDV(sp4-el): 54.2 ml LVAs ap4: 10.2 cm2 LVLs ap4: 5.8 cm ESV(MOD-sp4): 15.1 ml ESV(sp4-el): 15.2 ml EF(MOD-sp4): 70.5 % EF(sp4-el): 71.9 % SV(sp4-el): 39.0 ml LA A4 area: 22.6 cm2 LA dimension(2D): 4.5 cm RA A4 area: 27.4 cm2 Doppler Measurements & Calculations MV E max damaris: 91.0 cm/sec Ao V2 max: 136.4 cm/sec LV V1 max: 76.6 cm/sec Ao max P.5 mmHg LV V1 max P.4 mmHg Ao V2 mean: 95.6 cm/sec LV V1 mean P.4 mmHg Ao mean P.2 mmHg LV V1 mean: 55.4 cm/sec Ao V2 VTI: 24.8 cm LV V1 VTI: 14.2 cm AV (velocity ratio): 0.57 TR max damaris: 274.5 cm/sec TR max P.1 mmHg ECHO/Echo Complete Interpretation Summary Normal LV size. Left ventricular systolic function is normal. The estimated ejection fraction is 60 %. The right atrium is moderately enlarged. Pulmonary artery systolic pressure is 34 mmHg. Ordering Physician: Jopperi, Eliud Referring Physician: John Becerril Chi Performed By: Sasha Morgan RCS
--- NOTE | 2022-05-03 15:15 | RAD_ITS ---
STUDY: X-RAY CHEST REASON FOR EXAM: Male, 86 years old. pneumonia TECHNIQUE: Single AP portable view of the chest. COMPARISON: May 16, 2018 FINDINGS: Bilateral calcified pleural plaques are present in both lungs, increased from what was seen on the prior study. Some mild interstitial scarring is also present bilaterally. A small amount of consolidation is present in the mid to inferior aspect of the right upper lobe. No pleural effusion is seen. Normal size heart. Normal mediastinum and elizabeth. Normal visualized pulmonary arteries. There is atherosclerotic calcification of the aortic arch with tortuosity. Normal visualized thoracic spine. Normal visualized ribs, clavicles, and shoulders. There is no demonstrated abnormality of the visualized soft tissue structures of the upper abdomen. RAD/Chest 1 View (Portable) IMPRESSION: 1. Mild pneumonic consolidation of the right upper lobe Electronically Signed: Kerwin Garay MD at 15:31 EST ,
[2022-05-03 15:30] VITALS: BP 149/98; PULSE 93; RESP 18; TEMP 36.4; O2SAT 97
[2022-05-03] MEDS: 0.9% Normal Saline 1,000 ML 150 ML IV (15:45)
[2022-05-03] MEDS: oxyCODONE 5 MG Tablet PO ×2 (16:07→21:53)
[2022-05-03 16:29] LABS: ALB/GLOB Ratio 1.2 RATIO (0.9-2.4); AST(SGOT) 10 U/L (15-37); Alanine Aminotransfer ALT/SGPT 22 U/L (16-61); Albumin, Serum 3.7 g/dL (3.2-5.0); Alkaline Phosphatase 109 U/L (45-117); Anion Gap 9 (5-15); BUN 28 mg/dL (7-18); BUN/Creat Ratio 18.4 RATIO (10-20); Calcium,Total 8.9 mg/dL (8.5-10.1); Chloride 108 mmol/L (98-107); Creatinine, Serum 1.52 mg/dL (0.70-1.30); EST Glomerular Filtration Rate 47 mL/min (>60); Est Glom Filt Rate - Afr Amer 56 mL/min (>60); Estimated Creatinine Clearance 35.53 ml/min; Glucose 207 mg/dL (74-106); Potassium 4.8 mmol/L (3.5-5.1); Protein, Total 6.7 g/dL (6.4-8.2); Sodium Level 142 mmol/L (136-145); Thyroid Stim Hormone (TSH) 2.28 uIU/mL (0.358-3.74)
[2022-05-03 18:00] VITALS: PULSE 96
[2022-05-03 18:47] VITALS: PULSE 95
[2022-05-03 20:00] VITALS: O2SAT 94
[2022-05-03 21:35] VITALS: BP 115/77; PULSE 95; RESP 18; TEMP 36.6; O2SAT 97
[2022-05-03] MEDS: Senna/Docusate Sodium 1 Tablet 2 TABLET PO (21:53)
[2022-05-03] MEDS: Acetaminophen 500 MG Tablet 1000 MG PO (21:53)
[2022-05-04] VITALS (21 sets, daily range): BP systolic 80–137; BP diastolic 55–97; PULSE 88–131; RESP 16–18; TEMP 36.3–37.1; O2SAT 93–100; BMI 23.3
[2022-05-04] MEDS: Lactated Ringers 1,000 ML 15 ML IV (04:07)
[2022-05-04 06:06] LABS: Absolute Lymphocyte Count 0.74 X10^3/uL (0.83-4.51); Absolute Neutrophil Count 12.6 X10^3/uL (2.0-7.7); Basophil# 0.03 X10^3/uL; Basophil% 0.2 % (0-1); Eosinophil# 0.01 X10^3/uL; Eosinophils% 0.1 % (0-5); Hematocrit 38.6 % (40-54); Hemoglobin 12.6 g/dL (13.0-16.5); Lymphocyte # 0.74 X10^3/ul (0.83-4.51); Mean Corp Hgb Conc 32.6 g/dL (32-36); Mean Corpuscular Hgb 30.8 pg (27.0-32.0); Mean Corpuscular Volume 94.4 fL (80-94); Mean Platelet Vol. 10.5 fl (6.2-12.0); Monocyte# 1.32 X10^3/uL; Monocyte% 8.9 % (0-10); NRBC Flagged by Analyzer 0 % (0-5); Neutrophil % 85.3 % (47-70); Platelet Count 143 K/mm3 (150-450); RBC Distribution Width CV 12.4 % (11.6-14.6); RBC Distribution Width SD 43.4 fl (35.1-43.9); Red Blood Count 4.09 M/mm3 (4.6-6.2); White Blood Count 14.8 K/mm3 (4.4-11.0)
[2022-05-04 06:25] LABS: Anion Gap 6 (5-15); BUN 30 mg/dL (7-18); BUN/Creat Ratio 22.2 RATIO (10-20); Calcium,Total 8.3 mg/dL (8.5-10.1); Chloride 107 mmol/L (98-107); Creatinine, Serum 1.35 mg/dL (0.70-1.30); EST Glomerular Filtration Rate 53 mL/min (>60); Est Glom Filt Rate - Afr Amer 64 mL/min (>60); Estimated Creatinine Clearance 40.01 ml/min; Glucose 118 mg/dL (74-106); Potassium 4.4 mmol/L (3.5-5.1); Sodium Level 139 mmol/L (136-145)
--- NOTE | 2022-05-04 07:53 | RAD_ITS ---
STUDY: X-RAY - PELVIS AND LEFT HIP REASON FOR EXAM: Male, 86 years old. Intraoperative digital documentation views of the intramedullary bharat placement. TECHNIQUE: 5 intraoperative digital documentation views of the proximal femur and left hip. COMPARISON: Pelvic and hip as dated May 03, 2022. FINDINGS: 5 intraoperative digital documentation views of the intramedullary bharat placement were performed. RAD/Hip Min 2 Views (Portable) IMPRESSION: Intraoperative digital documentation views as described. Electronically Signed: Mohit Lilly, at 15:45 EST ,
[2022-05-04 08:10] LABS: Vitamin D,25 Hydroxy 33.3 ng/mL
[2022-05-04] MEDS: 0.9% Saline Lock 10 ML Syringe IV ×3 (08:53→22:58)
[2022-05-04] MEDS: Morphine 2 MG/ML Syringe IV ×2 (08:53→09:10)
--- NOTE | 2022-05-04 11:30 | CASEMGMT ---
RN [employer]INE[employer] CM to room to meet with patient and family @ bedside for initial transition planning/care coordination assessment. MAURICIO MA introduced self and role at [facility]. Pt resting in bed in no distress at this time. Dtr's, Devi and Valentina, @ bedside. Pt is getting ready to be taken for surgery. Care providers, pharmacy, and demographics verified/updated at this time w/dtr's. PCP: Dr Becerril Specialists: Dr Moore-nephrology Preferred Pharmacy: [facility] Insurance: [facility] Prescription Benefit: Yes Living Will/HPOA: Has LW and HCPOA, who is dtrDevi. Devi states one of her brothers was listed as 1st alternative, but he has . LNOK: 5 living children. Devi is POA. Living Arrangements: Lives alone in one-story home w/1 step to enter. Was very independent prior to fall/fracture. Pt independent w/ADL's and IADL's, managed home mgmt tasks, and able to do yard work. Transportation: Pt was still driving prior to fall/fracture. DME: Pt uses no DME @ baseline HHC/SNF: No hx of either. Dtr's state pt will need to go to a SNF @ discharge. [facility]CU is their 1st choice. Georgette BOLAND, made aware. PLAN: SNF Cory GRIFFIN RN, CM
--- NOTE | 2022-05-04 11:48 | CASEMGMT ---
Addendum entered by Georgette Rasmussen 05/04/22 11:52: Thelma from TCU states pt has been accepted to TCU. Pt and family out of room due to surgery. SW will followup with pt after surgery. FRANKY Islas Original Note: Social Work SW received referral from RNCM that pt is interested in going to TCU for short term rehab prior to returning home. Pt currently in surgery. SW placed a A list of SNF providers including quality and resource use data and consistent with the patient?s preferred geographic region, medical needs, and insurance network from the [facility] Guide in the pt's room. Referral made to Thelma in TCU. SW will await determination on ability to accept pt. Plan: TCU, pending outcome of surgery, acceptance and precert FRANKY Islas
--- NOTE | 2022-05-04 12:47 | CONS.ORTHO ---
HPI Consult Data Date of Consult: 05/04/22 HPI Narrative Reason for Consultation: Left hip pain HPI Narrative: OLEG WASSERMAN, is a 86 M with history of atrial fibrillation coronary vascular disease as well as psoriasis presents today with left hip pain. Patient has 10 of 10 hip pain with motion better with immobilization. Patient was letting his dogs out yesterday when he had a mechanical fall over an object in the home. Denies any head injuries or loss of consciousness. He originally presented to an outside hospital and wished to come here to [facility] because his primary care provider and other providers are in this area. He denies any associated numbness and tingling. No active psoriatic lesions at the operative site. His family is at the bedside and provide additional historical information. He does have some residual left-sided weakness which is minimal related to his stroke. He lives at home with his dog however he performs his own ADLs and even mows his neighbors lawn on a regular basis. Denies use of a regular walker or cane. [facility] Medical History A-fib Depression HTN (hypertension) Prostate enlargement Stroke/cerebrovascular accident Home Medications aspirin 81 mg chewable tablet 81 mg PO DAILY@0800 ##90 05/18/18 [Rx Last Taken 05/03/22 08:00] citalopram 10 mg tablet 10 mg PO DAILY Check with primary doctor 05/03/22 [History Last Taken 05/02/22 17:00] rosuvastatin 10 mg tablet 10 mg PO DAILY Check with primary doctor 05/03/22 [History Last Taken 05/02/22 17:00] Allergy/AdvReac Type Severity Reaction Status Date / Time No Known Allergies Allergy Verified 05/16/18 08:25 Social History Smoking Status: Never smoker ROS Constitutional Constitutional: Reports systems reviewed and no addt'l complaints, except as documented Eyes Eyes: Reports systems reviewed and no addt'l complaints, except as documented ENT HEENT: Reports systems reviewed and no addt'l complaints, except as documented Cardiovascular Cardiovascular: Reports systems reviewed and no addt'l complaints, except as documented Respiratory/Chest Respiratory/Chest: Reports systems reviewed and no addt'l complaints, except as documented Gastrointestinal Gastrointestinal: Reports systems reviewed and no addt'l complaints, except as documented Genitourinary Genitourinary: Reports systems reviewed and no addt'l complaints, except as documented Musculoskeletal Musculoskeletal: Reports systems reviewed and no addt'l complaints, except as documented Integumentary Integumentary: Reports other Details: psoriasis Neurologic Neurologic: Reports systems reviewed and no addt'l complaints, except as documented Psychiatric Psychiatric: Reports systems reviewed and no addt'l complaints, except as documented Vital Signs Vital Signs Vital Signs: 05/03/22 14:32 05/03/22 15:30 05/03/22 18:00 Temperature 97.6 F L Temperature Source Temporal Pulse Rate 93 96 Pulse Strength Respiratory Rate 18 Respiratory Effort Normal Respiratory Depth Normal Respiratory Pattern Normal Blood Pressure 149/98 H Blood Pressure Mean 115 Blood Pressure Source Monitor Blood Pressure Position Blood Pressure Location Pulse Ox 97 Oxygen Delivery Method Nasal Cannula Nasal Cannula Oxygen Flow Rate (L/min) 2 2 05/03/22 20:00 05/03/22 21:35 05/03/22 21:35 Temperature 98 F Temperature Source Oral Pulse Rate 95 Pulse Strength Normal (2+) Respiratory Rate 18 Respiratory Effort Respiratory Depth Respiratory Pattern Blood Pressure 115/77 Blood Pressure Mean 89 Blood Pressure Source Monitor Blood Pressure Position Semi-Fowlers Blood Pressure Location Left Forearm Pulse Ox 94 97 Oxygen Delivery Method Room Air Room Air Oxygen Flow Rate (L/min) 05/03/22 18:47 05/03/22 21:35 05/04/22 03:58 Temperature 98.1 F Temperature Source Oral Pulse Rate 95 95 Pulse Strength Respiratory Rate 18 Respiratory Effort Normal Non-Labored Respiratory Depth Normal Respiratory Pattern Normal Blood Pressure 115/74 Blood Pressure Mean 87 Blood Pressure Source Monitor Blood Pressure Position Semi-Fowlers Blood Pressure Location Left Forearm Pulse Ox 95 Oxygen Delivery Method Room Air Room Air Oxygen Flow Rate (L/min) 05/04/22 04:00 05/04/22 03:00 05/04/22 07:42 Temperature Temperature Source Pulse Rate 93 Pulse Strength Respiratory Rate Respiratory Effort Normal Non-Labored Respiratory Depth Normal Respiratory Pattern Normal Blood Pressure Blood Pressure Mean Blood Pressure Source Blood Pressure Position Blood Pressure Location Pulse Ox Oxygen Delivery Method Room Air Room Air Oxygen Flow Rate (L/min) 05/04/22 08:00 05/04/22 10:00 05/04/22 10:00 Temperature 98.3 F Temperature Source Oral Pulse Rate 97 93 Pulse Strength Respiratory Rate 18 Respiratory Effort Normal Non-Labored Respiratory Depth Respiratory Pattern Blood Pressure 118/86 H Blood Pressure Mean 96 Blood Pressure Source Monitor Blood Pressure Position Supine Blood Pressure Location Left Arm Pulse Ox 95 Oxygen Delivery Method Room Air Room Air Oxygen Flow Rate (L/min) 05/04/22 10:00 05/04/22 10:00 Temperature 98.0 F Temperature Source Oral Pulse Rate 89 Pulse Strength Normal (2+) Respiratory Rate 18 Respiratory Effort Respiratory Depth Respiratory Pattern Blood Pressure 119/78 Blood Pressure Mean 91 Blood Pressure Source Monitor Blood Pressure Position Semi-Fowlers Blood Pressure Location Left Arm Pulse Ox 96 Oxygen Delivery Method Room Air Oxygen Flow Rate (L/min) Weight Weight: 158 lb 4.67 oz Body Mass Index (BMI) 23.3 Physical Exam Const alert and oriented x3 General Appearance: cooperative and well developed HEENT normocephalic and head/scalp atraumatic Eyes PERRL Neck no JVD Resp normal respiratory effort Cardio Cardio Narrative: Regular pulse rate GI non-distended Extremity Extremity Narrative: Left lower extremity: Dressing is clean dry and intact Sensations intact to light touch saphenous, sural, superficial peroneal, deep peroneal, and tibial distributions Motors intact EHL, DF, PF calves are soft and supple Skin Skin Narrative: Patient has psoriatic plaques on bilateral elbows and anterior knee bilaterally. No psoriatic plaques over planned/anticipated operative site Neuro CN's II-XII intact bilaterally and moves all extremities Psych affect normal Medical Records Data Attestation: I reviewed the patient's medical records Lab / Micro Data Attestation: I reviewed the patient's lab results. Result Diagrams: 05/04/22 05:24 05/04/22 05:24 Labs: Laboratory Results - last 24 hr 05/03/22 15:52: Sodium 142, Potassium 4.8, Chloride 108 H, Carbon Dioxide 25.0, Anion Gap 9, BUN 28 H, Creatinine 1.52 H, Estim Creat Clear Calc 35.53, Est GFR (MDRD) Af Amer 56 L, Est GFR (MDRD) Non-Af 47 L, BUN/Creatinine Ratio 18.4, Glucose 207 H, Calcium 8.9, Total Bilirubin 0.90, AST 10 L, ALT 22, Alkaline Phosphatase 109, Total Protein 6.7, Albumin 3.7, Globulin 3.0, Albumin/Globulin Ratio 1.2, TSH 2.28 05/03/22 15:52: Vitamin D 25-Hydroxy 33.3 05/04/22 05:24: WBC 14.8 H, RBC 4.09 L, Hgb 12.6 L, Hct 38.6 L, MCV 94.4 H, MCH 30.8, MCHC 32.6, RDW Std Deviation 43.4, RDW Coeff of Jory 12.4, Plt Count 143 L, MPV 10.5, Immature Gran % (Auto) 0.500, Neut % (Auto) 85.3 H, Lymph % (Auto) 5.0 L, [place] % (Auto) 8.9, Eos % (Auto) 0.1, Baso % (Auto) 0.2, Absolute Neuts (auto) 12.6 H, Absolute Lymphs (auto) 0.74 L, Nucleated RBC % 0 05/04/22 05:24: Sodium 139, Potassium 4.4, Chloride 107, Carbon Dioxide 26.0, Anion Gap 6, BUN 30 H, Creatinine 1.35 H, Estim Creat Clear Calc 40.01, Est GFR (MDRD) Af Amer 64, Est GFR (MDRD) Non-Af 53 L, BUN/Creatinine Ratio 22.2 H, Glucose 118 H, Calcium 8.3 L 05/04/22 05:24: Blood Type B POSITIVE, Antibody Screen NEGATIVE Radiology Impression Chest X-Ray 05/03/22 15:15 IMPRESSION: 1. Mild pneumonic consolidation of the right upper lobe Electronically Signed: Kerwin Garay MD at 15:31 EST Reading Location ID and State: [address] [place] [address] , Service support , Outside left hip x-rays were reviewed showing comminuted intertrochanteric hip fracture. Assessment & Plan Assessment/Plan (1) Closed left hip fracture: PLAN: Left intertrochanteric hip fracture: Natural history of the disease process and treatment options were discussed with the patient and his family at bedside. Did not recommend nonoperative treatment. Surgical intervention discussed included cephalomedullary nail. Risk and benefits of the procedure were discussed with the patient and family including but not limited to blood loss, DVTs, PEs, nervous damage, infection, general risk of anesthesia including loss of life. Nonunions, malunions and hardware failure and screw cut out were also discussed. At this time all parties demonstrated understanding of the anticipated risks and wished to proceed with surgical intervention at this time. Patient has been adequately consented. He is currently NPO. Antibiotics have been ordered on-call to the operating room. We will proceed with surgery this afternoon. Patient has been medically optimized by the medicine service. [facility] Office: (2) A-fib: PLAN: Per primary service (3) Acute ischemic stroke: PLAN: Per primary service, does have some residual left-sided weakness which may affect postoperative outcomes (4) Psoriasis: PLAN: Per primary service (5) Depression: PLAN: Per primary service (6) Hypertension: PLAN: Per primary service
--- NOTE | 2022-05-04 12:56 | OP.PCM_ITS ---
Report of Operation Date of Procedure: 05/04/22 Pre-Operative Diagnosis: Left intertrochanteric hip fracture Post-Operative Diagnosis: Left intertrochanteric hip fracture Surgery/Procedure Performed:: Left hip cephalomedullary nail Description of Surgical Findings:: Stable reduction Surgeon: Josh Sales thread grinder tool: Lalo Leiva Type of Anesthesia: General Anesthesiologist: Grzegorz Salvador Special Medications: Ancef Estimated Blood Loss (mL): 300 Fluids Replaced: 700 mL crystalloid Description of Procedure: Components used: 1. [employer]hew InterTAN nail short 11.5 mm nail 125 2. [employer] InterTAN lag screw 90 mm 3. [employer]hew 37.5 millimeter interlocking screw Brief history operative indications: 86-year-old male who fell at home with mechanical fall sustaining a left intertrochanteric hip fracture. After extensive discussion including risk and benefits which include but are not limited to blood loss, PEs, DVTs, neurovascular damage, nonunions, malunions and screw cut out patient has elected to proceed with a left cephalo-medullary nail. Procedure: On the date of the procedure the patient's left hip was marked in the preoperative area and patient was taken back to the operating room. Anesthetic was administered and patient was transferred to the table were all bony prominence identified well-padded and the ipsilateral arm was placed across the chest. Patient was then translated down to the perineal post and the operative leg was placed in the boot while the nonoperative leg was lowered and secured. The operative leg was placed in traction and internal rotation and live fluoroscopy was used to verify adequate reduction. The operative leg was then prepped in a sterile fashion with chlorhexidine while the surgeon scrubbed. Upon reentering the room the operative extremity was draped in the standard orthopedic fashion. Skin incision was marked and a timeout was called. Everyone agreed upon the side, the site, the procedure be performed, patient's identity, and antibiotics given. Skin incision was made and the position of the entry guidepin was verified using live fluoroscopy. Once we were satisfied with our position the pin was advanced in the soft tissue protector was placed over the pin. The entry reamer was then advanced into the proximal portion of the femur. A [employer] short InterTAN 11.5 mm 125 short hip nail was selected. The nail was then attached to the collar padder blindstitch and inserted into the intramedullary canal. The appropriate depth was verified and the skin incision for the lag screw was made. The lag screw guidepin was then placed under live fluoroscopy and when a satisfactory position was obtained the length of the screw was measured and the standard technique to drill for the lag screws was performed. The anti-rotation bar was used. At this time a 90 mm lag screw was selected with its corresponding compression screw. The lag screw was then passed and traction was left off the leg. The compression screw was then passed and the fracture was compressed. The final position of the lag screw was verified under fluoroscopy. Attention was then turned to the distal portion of the nail and a distal guide technique was used to locate the distal interlocking screw and a 37.5 mm distal interlocking screw was placed using this technique. Live fluoroscopy was used to verify the position of the interlocking screw and the final position of the hip components. Once we were satisfied with our positioning the wounds were copiously irrigated out with normal saline skin was closed with 2-0 Vicryl and thomas for final sk in closure. A sterile dressing was placed with Xeroform. Patient was then awakened by anesthesia transferred from the fracture table back to their hospital bed and transferred to the PACU for recovery. Postoperative plan: Patient will be weight-bear as tolerated. Xarelto 10 mg daily for 2 weeks followed by 81 mg aspirin twice daily for 2 weeks for DVT prophylaxis with knee- high stockings. Follow up in the office in 2 weeks. Complications none Admit VTE Documentation VTE Present on Admission: No VTE Mechan Device Prophylaxis: SCD's and Thigh High DODIE Hose VTE Pharm Prophylaxis ordered?: Yes
--- NOTE | 2022-05-04 14:01 | CASEMGMT ---
Social Work SW met with pt's two daughters. SW discussed SNF placement and that [facility]CU is able to accept pt. SW explained insurance coverage and need for precert. Precert will be started after pt has therapy evaluations. Family reviewed provided SNF list and confirm TCU is facility of choice. Plan: TCU, pending precert FRANKY Islas
--- NOTE | 2022-05-04 14:15 | RAD_ITS ---
EXAM: XR LEFT HIP WITH PELVIS WHEN PERFORMED, 2 OR 3 VIEWS CLINICAL INDICATION: Post Op -- AP both hips on single meghna/lateral of op hip PACU TECHNIQUE: Two or three views of the left hip with pelvis when performed. This report was created using [employer] report [email or web address] technology. COMPARISON: 05/03/2022. FINDINGS: BONES/JOINTS: Threaded screws penetrating the femoral head and neck and intertrochanteric nail following ORIF of the left femoral intertrochanteric fracture. No destructive or sclerotic lesions. Note that overlapping bowel shadows may however obscure fine detail. Sacroiliac joint is unremarkable. No widening of the pubic symphysis. The articular structures are unremarkable. SOFT TISSUES: Unremarkable. No soft tissue swelling or gas. RAD/Hip Min 2 Views (Portable) IMPRESSION: Normal post ORIF of the left femoral intertrochanteric fracture using 2 threaded metallic screws penetrating the femoral head and neck and a trochanteric nail when compared to preop radiographs of 05/03/2022. Electronically Signed: Macario Vilchis MD at 15:57 EST ,
--- NOTE | 2022-05-04 16:54 | CHAPLAIN ---
Type of Pastoral Visit ___ Initial Visit ___ Follow-up Visit ___ On-call Visit ___ General Patient Visit ___ Spiritual Assessment _x__ Family Conference ___ Bereavement ___ Rapid Response ___ Code Blue ___ Other (describe below) Pastoral Care Referral From ___ Patient _x__ Family ___ Nurse ___ Physician ___ Bond Manager ___ Applications Systems Engineer ___ Other (describe below) Sacrament/Intervention _x__ Active listening ___ Anointing ___ Sikh ___ Bereavement ___ Communion ___ Erin exploration ___ ___ Life review ___ Prayer ___ Reconciliation ___ Sacrament of Sick ___ Supportive presence ___ Wedding ___ Other (describe below) Pastoral Comments patient was in surgery at time of this visit; daughters of pt were together in the room; offer of support and presence given and received
[2022-05-04] MEDS: Morphine 4 MG/ML Syringe IV (16:55)
--- NOTE | 2022-05-04 18:56 | PCM.PN.HOSP ---
Subjective Subjective Patient was seen and examined today, he went to surgery today for insertion of the left hip cephalomedullary nail, patient was seen earlier this evening, he appears comfortable, he does not complain of any shortness of breath or chest pain. Objective Data Objective Data Vital Signs: Vital Signs Temp Pulse Resp BP Pulse Ox O2 Del Method O2 Flow Rate 98.8 F 112 H 18 98/55 L 98 Room Air 2 05/04/22 18:49 05/04/22 18:49 05/04/22 18:49 05/04/22 18:49 05/04/22 18:49 05/04/22 18:49 05/04/22 14:30 Oxygen Flow Rate (L/min) 2 Oxygen Delivery Method Room Air Weight: 71.8 kg Body Mass Index (BMI) 23.3 Intake & Output: Intake and Output for Last 24 Hours 05/02/22 05/03/22 05/04/22 23:59 23:59 23:59 Intake Total 1000 / 1000 900 / 900 Output Total 200 / 200 850 / 850 Balance 800 / 800 50 / 50 Lab / Micro Data Result Diagrams: 05/04/22 05:24 05/04/22 05:24 Labs: Laboratory Results - last 24 hr 05/03/22 15:52: Vitamin D 25-Hydroxy 33.3 05/04/22 05:24: WBC 14.8 H, RBC 4.09 L, Hgb 12.6 L, Hct 38.6 L, MCV 94.4 H, MCH 30.8, MCHC 32.6, RDW Std Deviation 43.4, RDW Coeff of Jory 12.4, Plt Count 143 L, MPV 10.5, Immature Gran % (Auto) 0.500, Neut % (Auto) 85.3 H, Lymph % (Auto) 5.0 L, [place] % (Auto) 8.9, Eos % (Auto) 0.1, Baso % (Auto) 0.2, Absolute Neuts (auto) 12.6 H, Absolute Lymphs (auto) 0.74 L, Nucleated RBC % 0 05/04/22 05:24: Sodium 139, Potassium 4.4, Chloride 107, Carbon Dioxide 26.0, Anion Gap 6, BUN 30 H, Creatinine 1.35 H, Estim Creat Clear Calc 40.01, Est GFR (MDRD) Af Amer 64, Est GFR (MDRD) Non-Af 53 L, BUN/Creatinine Ratio 22.2 H, Glucose 118 H, Calcium 8.3 L 05/04/22 05:24: Blood Type B POSITIVE, Antibody Screen NEGATIVE Radiography Diagnostic Testing: Radiology Impression Echocardiogram 05/03/22 14:55 Interpretation Summary Normal LV size. Left ventricular systolic function is normal. The estimated ejection fraction is 60 %. The right atrium is moderately enlarged. Pulmonary artery systolic pressure is 34 mmHg. Ordering Physician: Eliud Hines Referring Physician: John Becerril Chi Performed By: Sasha Morgan RCS Hip X-Ray 05/04/22 14:15 IMPRESSION: Normal post ORIF of the left femoral intertrochanteric fracture using 2 threaded metallic screws penetrating the femoral head and neck and a trochanteric nail when compared to preop radiographs of 05/03/2022. Electronically Signed: Macario Vilchis MD at 15:57 EST , Physical Exam Const alert, oriented x3, no apparent distress and healthy appearing General Appearance: cooperative, well kempt and well developed Orientation / Consciousness: awake, oriented to person, oriented to place and oriented to time HEENT normocephalic and moist oral mucous membranes Eyes PERRL, EOMs intact bilaterally and conjunctivae normal Neck supple, no JVD, thyroid normal and no carotid bruits General: trachea midline Resp normal respiratory effort, no retractions, no use of accessory muscles and clear to auscultation bilaterally Auscultation: Negative for rales, rhonchi or wheezes Cardio S1 normal heart sound, S2 normal heart sound, no murmurs, no rub and no gallops Cardio Narrative: Heart rate and rhythm is irregular GI normal to inspection, nondistended, normoactive bowel sounds, soft to palpation, non-tender and non-distended Extremity no clubbing, cyanosis or edema Neuro oriented x3, CN's II-XII intact bilaterally, no focal motor deficits and no sensory deficits noted Sensorium / Orientation: awake and alert Speech: speech normal Psych affect normal Assessment & Plan Assessment/Plan (1) Closed left hip fracture: PLAN: Plan 1. Left intertrochanteric hip fracture secondary to osteoporosis-postop day #0 insertion of cephalomedullary nail left hip-patient appears stable postop, PT and OT will see the patient #2 chronic atrial fibrillation-patient's rate appears controlled at this time, continue present medication #3 chronic depression-patient is on Lexapro #4 chronic kidney disease stage IIIa-BMP will be monitored as needed Charges/Coding Visit Charges Inpatient E&M: 99013 Subs Hosp L2
[2022-05-04] MEDS: Acetaminophen 500 MG Tablet 1000 MG PO (21:01)
[2022-05-04] MEDS: Senna/Docusate Sodium 1 Tablet 2 TABLET PO (21:01)
[2022-05-04] MEDS: Metoprolol Tartrate 5 MG/5 ML Vial IV (22:57)
[2022-05-05] VITALS (8 sets, daily range): BP systolic 91–113; BP diastolic 55–68; PULSE 74–102; RESP 16–18; TEMP 36.4–36.9; O2SAT 96–98
[2022-05-05] MEDS: oxyCODONE 5 MG Tablet PO ×2 (00:12→06:39)
[2022-05-05] MEDS: Acetaminophen 500 MG Tablet 1000 MG PO ×2 (05:22→14:20)
[2022-05-05] MEDS: Rivaroxaban 10 MG Tablet PO (05:22)
[2022-05-05] MEDS: Senna/Docusate Sodium 1 Tablet 2 TABLET PO (09:20)
[2022-05-05] MEDS: Ensure Surgery 237 ML LIQUID PO ×3 (09:20→16:34)
--- NOTE | 2022-05-05 10:19 | CASEMGMT ---
Social Work SW checked with Anabella and Thelma at TCU regarding precert. SW informed precert had not been started as pt surgery was pending. KRYSTIAN checked with Dr. Parekh and stated pt is medically ready. Krystian called TCU back to inform that precert can be started. Anabella voiced understanding and will started precert. FRANKY Olivas
--- NOTE | 2022-05-05 13:44 | PN.HOSP_ITS ---
Subjective Subjective Patient was seen and examined today, pulse rate last night increased into the 120s and 130s, this morning it is in the low 100s. Patient is asymptomatic, he is not presently on any rate control medications, it appears that he was given intermittent IV metoprolol last night. Patient's pre-CERT for TCU has been sta rted today. Objective Data Objective Data Vital Signs: Vital Signs Temp Pulse Resp BP Pulse Ox O2 Del Method O2 Flow Rate 98.4 F 102 H 18 91/55 L 98 Room Air 2 05/05/22 09:36 05/05/22 09:36 05/05/22 09:36 05/05/22 09:36 05/05/22 09:36 05/05/22 09:38 05/04/22 14:30 Oxygen Flow Rate (L/min) 2 Oxygen Delivery Method Room Air Weight: 71.8 kg Body Mass Index (BMI) 23.3 Intake & Output: Intake and Output for Last 24 Hours 05/03/22 05/04/22 05/05/22 23:59 23:59 23:59 Intake Total 1000 / 1000 900 / 900 784.25 / 784.25 Output Total 200 / 200 850 / 850 350 / 350 Balance 800 / 800 50 / 50 434.25 / 434.25 Lab / Micro Data Result Diagrams: 05/04/22 05:24 05/04/22 05:24 Radiography Diagnostic Testing: Radiology Impression Echocardiogram 05/03/22 14:55 Interpretation Summary Normal LV size. Left ventricular systolic function is normal. The estimated ejection fraction is 60 %. The right atrium is moderately enlarged. Pulmonary artery systolic pressure is 34 mmHg. Ordering Physician: Eliud Hines Referring Physician: John Becerril Chi Performed By: Sasha Morgan RCS Hip X-Ray 05/04/22 14:15 IMPRESSION: Normal post ORIF of the left femoral intertrochanteric fracture using 2 threaded metallic screws penetrating the femoral head and neck and a trochanteric nail when compared to preop radiographs of 05/03/2022. Electronically Signed: Macario Vilchis MD at 15:57 EST , Physical Exam Const alert, oriented x3, no apparent distress and healthy appearing General Appearance: cooperative, well kempt and well developed Orientation / Consciousness: awake, oriented to person, oriented to place and oriented to time HEENT normocephalic and moist oral mucous membranes Eyes PERRL, EOMs intact bilaterally and conjunctivae normal Neck supple, no JVD, thyroid normal and no carotid bruits General: trachea midline Resp normal respiratory effort, no retractions, no use of accessory muscles and clear to auscultation bilaterally Auscultation: Negative for rales, rhonchi or wheezes Cardio S1 normal heart sound, S2 normal heart sound, no murmurs, no rub and no gallops Cardio Narrative: Heart rate and rhythm is irregular GI normal to inspection, nondistended, normoactive bowel sounds, soft to palpation, non-tender and non-distended Extremity no clubbing, cyanosis or edema Skin no rashes or lesions noted Neuro oriented x3, CN's II-XII intact bilaterally, moves all extremities, no focal motor deficits and no sensory deficits noted Sensorium / Orientation: awake and alert Speech: speech normal Psych affect normal Assessment & Plan Assessment/Plan (1) Closed left hip fracture: PLAN: Plan 1. Left intertrochanteric hip fracture secondary to osteoporosis-postop day #1 insertion of cephalomedullary nail left hip-patient appears stable postop, PT and OT will see the patient #2 atrial fibrillation (chronic versus new onset)-patient's rate appears controlled at this time, patient's blood pressures been running low today with systolic readings in the 90s at times, I am reluctant to place him on any rate control medications on a programmed basis at this time. I talked to the patient's son briefly by phone, he does not know if the patient's PCP discussed going on full anticoagulation due to atrial fib. I called the patient's PCP (Dr. Becerril) and he does not have listed in his problem list that the patient has atrial fib, so full anticoagulation was never discussed with the patient. I will have a discussion today with the patient concerning taking anticoagulation long-term for stroke prevention due to his atrial fib. I could not find any documentation in the patient's chart that he has ever had atrial for before, I talked with Dr. Hines briefly by phone-he admitted the patient to the hospital this time, he does not recall who told him that the patient has chronic atrial fib. #3 chronic depression-patient is on Lexapro #4 chronic kidney disease stage IIIa-BMP will be monitored as needed Charges/Coding Visit Charges Inpatient E&M: 91753 Subs Hosp L2
--- NOTE | 2022-05-05 15:02 | CHAPLAIN ---
Type of Pastoral Visit _x__ Initial Visit ___ Follow-up Visit ___ On-call Visit ___ General Patient Visit ___ Spiritual Assessment ___ Family Conference ___ Bereavement ___ Rapid Response ___ Code Blue ___ Other (describe below) Pastoral Care Referral From _x__ Patient ___ Family ___ Nurse ___ Physician ___ Hair Cutter ___ Collections Clerk ___ Other (describe below) Sacrament/Intervention __x_ Active listening ___ Anointing ___ Mosque ___ Bereavement ___ Communion ___ Erin exploration ___ _x__ Life review _x__ Prayer ___ Reconciliation ___ Sacrament of Sick ___ Supportive presence ___ Wedding ___ Other (describe below) Pastoral Comments patient describes his condition and that he is not very good at sitting down but likes being active; pt gives brief story about who about 11 years ago and a son that is ; pt has a neighborhood companionship; pt says that staying busy and having a erin in God is his biggest help but admits that he gets down about his situation; pt states that he is ready to go if that is God's plan, but he doesn't want to suffer; pt gives some more life review and welcomes a prayer;
--- NOTE | 2022-05-05 16:01 | CASEMGMT ---
Social work SW notified by Anabella at [facility] that precert has been obtained. SW notified Dr. Parekh via backline. PLAN: [facility] FRANKY Olivas
--- NOTE | 2022-05-05 16:23 | PCM.TXEXTCAR ---
Diet Diet Order/Speech Therapy: 05/04/22 17:18 Diet: Regular - General Is pt able to select menu?: No Diet Comments: 240ml trish ensure+ w/ break & udxc-ik-[id number] foods as diet adv to regular Routine Orders/Code Status Code Status: Full Code Wound(s) left hip: Wound Type: Surgical Incision Therapies Weight Bearing: Weight bearing as tolerated Physical Therapy: Eval and Treat Occupational Therapy: Eval and Treat Problem/Diagnosis (1) Closed left hip fracture: Status: Acute Code(s): S72.002A - Fracture of unspecified part of neck of left femur, initial encounter for closed fracture Plan 1. Left intertrochanteric hip fracture secondary to osteoporosis-postop day #1 insertion of cephalomedullary nail left hip-patient appears stable postop, PT and OT will see the patient #2 atrial fibrillation (chronic versus new onset)-patient's rate appears controlled at this time, patient's blood pressures been running low today with systolic readings in the 90s at times, I am reluctant to place him on any rate control medications on a programmed basis at this time. I talked to the patient's son briefly by phone, he does not know if the patient's PCP discussed going on full anticoagulation due to atrial fib. I called the patient's PCP (Dr. Becerril) and he does not have listed in his problem list that the patient has atrial fib, so full anticoagulation was never discussed with the patient. I will have a discussion today with the patient concerning taking anticoagulation long-term for stroke prevention due to his atrial fib. I could not find any documentation in the patient's chart that he has ever had atrial for before, I talked with Dr. Hines briefly by phone-he admitted the patient to the hospital this time, he does not recall who told him that the patient has chronic atrial fib. #3 chronic depression-patient is on Lexapro #4 chronic kidney disease stage IIIa-BMP will be monitored as needed Allergies/Procedures Done in Hospital Allergies No Known Allergies Allergy (Verified 05/16/18 08:25) Procedures: - (ORIF left hip 05/04/22) Type of Care/Length of Stay Estimated LOS: Convalescent Care Less Than 30 days Type of Care Needed: Skilled Rehab Potential: Good Prognosis: Good Additional Orders/Day of Discharge H&P will serve as current which was dated: 05/03/22 Day of Discharge: 05/05/22 Dietary and Speech Recommendations Dietitian Recommendations/Changes: Recommend advance diet as tolerated to Regular/uscw-xz-wjml foods. Will add 240 ml chocolate ensure plus high protein w/ breakfast as diet advanced from clear liquids. Adjust ONS as needed to optimize PO and prevent further wt loss. Discharge Plan Admission Admit Date/Time: 05/03/22 14:30 Primary Reason for Your Visit: left hip fracture-intertrochanteric Attending Provider: Colin Parekh Primary Care Provider: John Becerril Chi Consulting Providers: Josh Sales ; Eliud Hines Discharge Orders/Prescriptions Prescriptions: New acetaminophen 500 mg Tablet 1,000 mg PO Q8 Qty: 0 0RF oxycodone 5 mg Tablet 5 mg PO Q4H PRN PRN (Reason: Pain Score 4-10) 7 Days Qty: 10 0RF Ensure Surgery 0.08-1.4 gram-kcal/mL Liquid 237 ml PO TIDCM Qty: 0 0RF Eliquis 5 mg tablet 5 mg PO BID Qty: 1 0RF Continued aspirin 81 MG tablet,chewable 81 mg PO DAILY@0800 Qty: 90 0RF citalopram 10 mg tablet 10 mg PO DAILY Label Comments: TAKE 1 TABLET BY MOUTH ONCE DAILY rosuvastatin 10 mg tablet 10 mg PO DAILY Label Comments: TAKE 1 TABLET BY MOUTH ONCE DAILY Referrals / Follow Up: Josh Sales MD [Med Staff - Active Staff] - See Referral Note (in two weeks) John Becerril Chi, MD [Primary Care Provider] - Disposition Disposition (needs filled in before D/C Order can be placed): [facility]
--- NOTE | 2022-05-05 16:28 | PCM.PN.ORT ---
Subjective Subjective Patient is doing well. No acute events overnight. No chest pain or shortness of breath. Reports no calf pain. Objective Data Objective Data Vital Signs: Vital Signs Temp Pulse Resp BP Pulse Ox O2 Del Method O2 Flow Rate 97.5 F L 80 18 92/58 L 98 Room Air 2 05/05/22 14:22 05/05/22 14:22 05/05/22 14:22 05/05/22 14:22 05/05/22 14:22 05/05/22 14:22 05/04/22 14:30 Oxygen Flow Rate (L/min) 2 Oxygen Delivery Method Room Air Weight: 158 lb 4.67 oz Body Mass Index (BMI) 23.3 Intake & Output: Intake and Output for Last 24 Hours 05/03/22 05/04/22 05/05/22 23:59 23:59 23:59 Intake Total 1000 / 1000 900 / 900 784.25 / 784.25 Output Total 200 / 200 850 / 850 350 / 350 Balance 800 / 800 50 / 50 434.25 / 434.25 Lab / Micro Data Attestation: I reviewed the patient's lab results. Result Diagrams: 05/04/22 05:24 05/04/22 05:24 Radiography Diagnostic Testing: Radiology Impression Echocardiogram 05/03/22 14:55 Interpretation Summary Normal LV size. Left ventricular systolic function is normal. The estimated ejection fraction is 60 %. The right atrium is moderately enlarged. Pulmonary artery systolic pressure is 34 mmHg. Ordering Physician: Eliud Hines Referring Physician: John Becerril Chi Performed By: Sasha Morgan RCS Hip X-Ray 05/04/22 14:15 IMPRESSION: Normal post ORIF of the left femoral intertrochanteric fracture using 2 threaded metallic screws penetrating the femoral head and neck and a trochanteric nail when compared to preop radiographs of 05/03/2022. Electronically Signed: Macario Vilchis MD at 15:57 EST , Physical Exam Const alert and no apparent distress Extremity Extremity Narrative: Left lower extremity: Dressing is clean dry and intact Sensations intact to light touch saphenous, sural, superficial peroneal, deep peroneal, and tibial distributions Motors intact EHL, DF, PF calves are soft and supple Thigh soft and supple Assessment & Plan Assessment/Plan (1) Closed left hip fracture: PLAN: Postop day 1 cephalo-medullary nail left hip 1. Pain control: Patient is currently control, primary service manage pain 2. DVT prophylaxis: Patient is currently on Eliquis 5 mg twice daily for his new onset atrial fibrillation which would be sufficient for for DVT prophylaxis 3. Physical therapy: Patient is weight-bear as tolerated 4. Disposition: Patient be ready for discharge when medically stable. No further orthopedic intervention needed Dressing can be re no moved in 5 days. Stable can be removed on postop day 12 if wound is healed appropriately. Follow-up in office in 2 weeks for x-rays and wound check. Please call orthopedics for any further questions or concerns [facility] Office:
--- NOTE | 2022-05-05 16:30 | DS.PCM_ITS ---
Providers Date of Admission: 05/03/22 Date of Discharge: 05/05/22 Primary Care Physician: Dr. John Becerril MD Consultations 05/03/22 14:55 Consult: Orthopedics Routine Consulting Provider: Josh Sales Reason for Consult: right hip fracture EMERGENT Consult: No MD Notified: Yes Date Notified: 05/03/22 Time Notified: 14:35 Method of Notification: ED Physician Initiated Reason For Visit: RIGHT HIP FRACTURE Diagnosis Discharge Diagnosis (1) Closed left hip fracture: Status: Acute Code(s): S72.002A - Fracture of unspecified part of neck of left femur, initial encounter for closed fracture Plan 1. Left intertrochanteric hip fracture secondary to osteoporosis-postop day #1 insertion of cephalomedullary nail left hip-patient appears stable postop, PT and OT will see the patient #2 atrial fibrillation (chronic versus new onset)-patient's rate appears controlled at this time, patient's blood pressures been running low today with systolic readings in the 90s at times, I am reluctant to place him on any rate control medications on a programmed basis at this time. I talked to the patient's son briefly by phone, he does not know if the patient's PCP discussed going on full anticoagulation due to atrial fib. I called the patient's PCP (Dr. Becerril) and he does not have listed in his problem list that the patient has atrial fib, so full anticoagulation was never discussed with the patient. I will have a discussion today with the patient deangelo anne taking anticoagulation long-term for stroke prevention due to his atrial fib. I could not find any documentation in the patient's chart that he has ever had atrial for before, I talked with Dr. Hines briefly by phone-he admitted the patient to the hospital this time, he does not recall who told him that the patient has chronic atrial fib. #3 chronic depression-patient is on Lexapro #4 chronic kidney disease stage IIIa-BMP will be monitored as needed #5 osteoporosis Medications at Discharge Home Medications citalopram 10 mg tablet 10 mg PO DAILY Check with primary doctor 05/03/22 rosuvastatin 10 mg tablet 10 mg PO DAILY Check with primary doctor 05/03/22 acetaminophen 500 mg tablet 1,000 mg PO Q8 Pain 05/05/22 apixaban 5 mg tablet (Eliquis) 5 mg PO BID Blood Thinner 05/05/22 aspirin 81 mg chewable tablet 81 mg PO DAILY@0800 Heart 05/05/22 nut.tx.comp. immune systm,reg 0.08 gram-1.4 kcal/mL oral liquid (Ensure Surgery) 237 ml PO TIDCM Supplement 05/05/22 oxycodone 5 mg tablet 5 mg PO Q4H PRN PRN Pain Score 4-10 7 days #10 tabs 05/05/22 Hospital Course Operations - (Left hip cephalomedullary nail 05/04/2022) Procedures None Summary of Care Provided Minutes Spent on Discharge: 32 Hospital Course: This 86-year-old white male came to [facility] as a transfer from another hospital after he was seen there in the ER after sustaining a fall at home when he slipped taking his dogs out. It was noted that he had a left intertrochanteric hip fracture, patient was admitted to [place] [address] and seen by orthopedic surgery, PT and OT. Patient underwent a cephalo- medullary nail insertion in the left femur, he did well after surgery and there were no complications. On 05/05/2022, patient was seen and examined: On examination he appeared in good health and spirits. Vital signs as documented. Skin warm and dry and without ov ert rashes. Neck without JVD, neck was supple, trachea midline, thyroid was normal. Lungs clear bilaterally, normal air movement was noted. Heart exam notable for irregular rhythm, normal sounds and absence of murmurs, rubs or gallops. Abdomen unremarkable and without evidence of organomegaly, masses, or abdominal aortic enlargement. Bowel sounds are present, abdomen is not distended. Extremities nonedematous, no cyanosis was noted, no clubbing was noted. Neuro: Cranial nerves II through XII are grossly intact, no focal motor deficits were noted, sensation to light touch and pinprick intact, motor exam 5/5 throughout. Psych: Patient is alert and oriented x3, he does not appear anxious or depressed, he does not appear agitated. Patient was stable for transfer to TCU for further rehab services on 05/05/2022 Weight / BMI Weight Weight: 71.8 kg Body Mass Index (BMI) 23.3 ABG / Lab / Microbiology Data Result Diagrams: 05/04/22 05:24 05/04/22 05:24 Radiography Diagnostic Testing: Radiology Impression Echocardiogram 05/03/22 14:55 Interpretation Summary Normal LV size. Left ventricular systolic function is normal. The estimated ejection fraction is 60 %. The right atrium is moderately enlarged. Pulmonary artery systolic pressure is 34 mmHg. Ordering Physician: Eliud Hines Referring Physician: John Becerril Chi Performed By: Sasha Morgan RCS Hip X-Ray 05/04/22 14:15 IMPRESSION: Normal post ORIF of the left femoral intertrochanteric fracture using 2 threaded metallic screws penetrating the femoral head and neck and a trochanteric nail when compared to preop radiographs of 05/03/2022. Electronically Signed: Macario Vilchis MD at 15:57 EST , Meaningful Use Info Meaningful Use Diagnoses (Choose all that apply): None applicable Discharge Plan Admission Admit Date/Time: 05/03/22 14:30 Primary Reason for Your Visit: left hip fracture-intertrochanteric Attending Provider: Colin Parekh Primary Care Provider: John Becerril Chi Consulting Providers: Josh Sales ; Eliud Hines Discharge Orders/Prescriptions Prescriptions: New oxycodone 5 mg Tablet 5 mg PO Q4H PRN PRN (Reason: Pain Score 4-10) 7 Days Qty: 10 0RF Continued citalopram 10 mg tablet 10 mg PO DAILY Label Comments: TAKE 1 TABLET BY MOUTH ONCE DAILY rosuvastatin 10 mg tablet 10 mg PO DAILY Label Comments: TAKE 1 TABLET BY MOUTH ONCE DAILY No Action acetaminophen 500 mg tablet 1,000 mg PO Q8 aspirin 81 MG tablet,chewable 81 mg PO DAILY@0800 Ensure Surgery 0.08-1.4 gram-kcal/mL liquid 237 ml PO TIDCM Eliquis 5 mg tablet 5 mg PO BID Referrals / Follow Up: Josh Sales MD [Med Staff - Active Staff] - See Referral Note (in two weeks) John Becerril Chi, MD [Primary Care Provider] - Disposition Disposition (needs filled in before D/C Order can be placed): [facility] Facility Charges/Coding Visit Charges Inpatient E&M: 37327 Disch Hosp
== END 2022-05-05 18:35 | DRG 482 ==
PROVIDERS: Specialist; PCP Family Medicine Geriatric Medicine; Visit Provider Internal Medicine
PROC: 0QS736Z Reposition Left Upper Femur with Intramedullary Internal Fixation Device, Percutaneous Approach (ICD-10-PCS; CPT 27245; principal; 2022-05-04 12:15)
DX: M80.052A Age-related osteoporosis with current pathological fracture, left femur, initial encounter for fracture (principal); F32.A Depression, unspecified; N18.31 Chronic kidney disease, stage 3a; I48.91 Unspecified atrial fibrillation; L40.9 Psoriasis, unspecified; I12.9 Hypertensive chronic kidney disease with stage 1 through stage 4 chronic kidney disease, or unspecified chronic kidney disease; W19.XXXA Unspecified fall, initial encounter; Z79.82 Long term (current) use of aspirin; Z79.899 Other long term (current) drug therapy; Y93.K9 Activity, other involving animal care; Y92.9 Unspecified place or not applicable; Z86.73 Personal history of transient ischemic attack (TIA), and cerebral infarction without residual deficits
CPT/HCPCS: 36415; 71045; 73502; 76000; 80048; 80053; 82306; 84443; 85025; 86850; 86900; 86901; 87811; 93306; 97162; 97166; 99251; C1776; J7030; J7040; J7120; A4216; G0463; J2405

== ENCOUNTER 2022-05-05 18:46 | Inpatient (IN) | payer MEDICARE, SELFPAY ==
[2022-05-05 18:48] VITALS: BP 86/51; PULSE 105; RESP 18; TEMP 37.4; O2SAT 95
--- NOTE | 2022-05-05 19:13 | EKG12_ITS ---
Test Reason : AFIB Blood Pressure : / mmHG Vent. Rate : 098 BPM Atrial Rate : 258 BPM P-R Int : 000 ms QRS Dur : 070 ms QT Int : 348 ms P-R-T Axes : 000 031 014 degrees QTc Int : 444 ms Atrial fibrillation Low voltage QRS Abnormal ECG Confirmed by JOSE WEAVER, PALOMA ([id number]), offline editor NUBIA PALENCIA ([id number]) on 05/07/2022 10:05:50 AM Referred By: YESENIA Confirmed By:PALOMA GARCIA MD
--- NOTE | 2022-05-05 19:13 | HP.PCM_ITS ---
HPI - General General Date of Admission: 05/05/22 Date of Service: 05/06/22 Chief Complaint: Here for rehabilitation. HPI Narrative OLEG WASSERMAN, is a 86 Male who presents with followin05/03/2022 Admit to [facility] with left hip fracture. CT head negative. Prepare for surgery. 05/03/2022 Echo normal LV size. Left ventricular systolic function normal. EF 60%. Pulmonary artery systolic pressure 34mm HG. 05/04/2022 Dr. Sales performed left hip cephalomedullary nail. 05/04/2022 Comfortable after surgery. 05/05/2022 Metoprolol IV given for tachycardia. 05/05/2022 Admit to TCU with debility, here for rehabilitation, strengthening, prior to discharge home alone. [facility] Medical History (Updated 05/05/22 @ 19:[address] John Becerril MD) A-fib Depression HTN (hypertension) Prostate enlargement Stroke/cerebrovascular accident Home Medications citalopram 10 mg tablet 10 mg PO DAILY Check with primary doctor 05/03/22 [History Last Taken 05/02/22 17:00] rosuvastatin 10 mg tablet 10 mg PO DAILY Check with primary doctor 05/03/22 [History Last Taken 05/02/22 17:00] acetaminophen 500 mg tablet 1,000 mg PO Q8 Pain 05/05/22 [History Last Taken Unknown] apixaban 5 mg tablet (Eliquis) 5 mg PO BID Blood Thinner 05/05/22 [History Last Taken Unknown] aspirin 81 mg chewable tablet 81 mg PO DAILY@0800 Heart 05/05/22 [History Last Taken Unknown] nut.tx.comp. immune systm,reg 0.08 gram-1.4 kcal/mL oral liquid (Ensure Surgery) 237 ml PO TIDCM Supplement 05/05/22 [History Last Taken Unknown] oxycodone 5 mg tablet 5 mg PO Q4H PRN PRN Pain Score 4-10 7 days #10 tabs 05/05/22 [Rx Last Taken Unknown] Allergy/AdvReac Type Severity Reaction Status Date / Time No Known Allergies Allergy Verified 05/16/18 08:25 Surgical History (Updated 05/05/22 @ 19:[address] John Becerril MD) History of transurethral resection of prostate Social History (Updated 11/29/22 @ 19:[address] John Becerril MD) household members: none Smoking Status: Never smoker alcohol intake: never substance use type: does not use Vital Signs Vital Signs Vital Signs: 05/05/22 18:48 Temperature 99.3 F H Temperature Source Temporal Pulse Rate 105 H Respiratory Rate 18 Blood Pressure 86/51 L Blood Pressure Mean 62 Blood Pressure Source Monitor Blood Pressure Position Supine Blood Pressure Location Right Arm Pulse Ox 95 Oxygen Delivery Method Room Air Weight Weight: 71.8 kg Physical Exam Cardio Cardio Narrative: Irregularly irregular Results Lab / Micro Data Result Diagrams: 05/06/22 05:18 05/06/22 05:18 Assessment & Plan Assessment/Plan (1) Debility: (2) Closed left hip fracture: (3) Sinus arrhythmia: (4) Hypertension: (5) Depression: (6) Stroke: (7) Hyperlipidemia: (8) Chronic kidney disease, stage 3a: PLAN: Plan 86 year old male with below past medical history hospitalized for left hip fracture, underwent left hip cephalomedullary nail fixation 05/04/[address] 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 * Debility - PT/OT. * Pain - Tylenol 1000mg q8, Tramadol 50mg q6h prn pain (1-3), Oxycodone 5mg q4h prn pain (4-10). * Bowel - senna/colace 2 tablets bid, MOM 30ml daily prn. * Adult immunization - Administer pneumonia vaccine, covid19 vaccine, flu vaccine as appropriate. * DVT prophylaxis - Eliquis 5mg bid. * Stroke - Hold Aspirin 81mg daily while on Eliquis. * Hyperlipidemia - Atorvastatin 20mg qhs. * Depression - Citalopram 10mg daily, stable chronic continuous churn buttermaker use, GDR not recommended. * Sinus arrhythmia versus atrial fibrillation - I met resident 2 years ago, appeared to be in atrial fibrillation on exam, but EKG at the time showed sinus arrhythmia, I did not start anticoagulation, and kept him on aspirin 81mg daily for stroke prevention. Order EKG to sort out whether he needs fdc anticoagulation or not. EKG shows atrial fibrillation. * Nutrition - Ensure Surgery 237ml po tidcm.
--- NOTE | 2022-05-05 19:35 | NURSING ---
notified of EKG strip result of Afib, patient on eliquis, no new orders received.
[2022-05-05 20:00] VITALS: PULSE 104; RESP 16; O2SAT 98
[2022-05-05 20:48] VITALS: BMI 23.3
[2022-05-05] MEDS: Acetaminophen 500 MG Tablet 1000 MG PO (20:54)
[2022-05-05] MEDS: Senna/Docusate Sodium 1 Tablet 2 TABLET PO (20:54)
[2022-05-05] MEDS: Atorvastatin Calcium 20 MG Tablet PO (20:54)
--- NOTE | 2022-05-05 23:16 | NURSING ---
PATIENT REFUSES FLU AND PNEUMOVAC DESPITE EDUCATION, PATIENT STATES I DON'T TAKE THOSE, I DON'T WANT THEM. A&OX3, ABLE TO VOICE NEEDS
[2022-05-06] MEDS: APIXABAN 5 MG TABLET PO ×2 (05:17→18:19)
[2022-05-06] MEDS: Acetaminophen 500 MG Tablet 1000 MG PO ×3 (05:17→20:58)
[2022-05-06] MEDS: Citalopram 10 MG Tablet PO (05:17)
[2022-05-06] MEDS: Senna/Docusate Sodium 1 Tablet 2 TABLET PO ×2 (05:18→18:19)
[2022-05-06] MEDS: 0.9% Saline Lock 10 ML Syringe IV ×2 (05:23→18:24)
[2022-05-06 05:51] LABS: Absolute Lymphocyte Count 0.68 X10^3/uL (0.83-4.51); Absolute Neutrophil Count 7.3 X10^3/uL (2.0-7.7); Basophil# 0.02 X10^3/uL; Basophil% 0.2 % (0-1); Eosinophil# 0.12 X10^3/uL; Eosinophils% 1.3 % (0-5); Hematocrit 26.8 % (40-54); Hemoglobin 8.8 g/dL (13.0-16.5); Lymphocyte # 0.68 X10^3/ul (0.83-4.51); Lymphocyte % 7.5 % (19-41); Mean Corp Hgb Conc 32.8 g/dL (32-36); Mean Corpuscular Hgb 31.1 pg (27.0-32.0); Mean Corpuscular Volume 94.7 fL (80-94); Mean Platelet Vol. 10.9 fl (6.2-12.0); Monocyte# 0.87 X10^3/uL; Monocyte% 9.6 % (0-10); NRBC Flagged by Analyzer 0 % (0-5); Neutrophil # 7.29 X10^3/uL (2.7-7.7); Neutrophil % 80.8 % (47-70); Platelet Count 122 K/mm3 (150-450); RBC Distribution Width CV 12.6 % (11.6-14.6); RBC Distribution Width SD 43.8 fl (35.1-43.9); Red Blood Count 2.83 M/mm3 (4.6-6.2)
[2022-05-06 06:11] LABS: Anion Gap 3 (5-15); BUN 46 mg/dL (7-18); BUN/Creat Ratio 31.7 RATIO (10-20); Calcium,Total 8.2 mg/dL (8.5-10.1); Chloride 108 mmol/L (98-107); Creatinine, Serum 1.45 mg/dL (0.70-1.30); EST Glomerular Filtration Rate 49 mL/min (>60); Est Glom Filt Rate - Afr Amer 59 mL/min (>60); Estimated Creatinine Clearance 37.25 ml/min; Glucose 127 mg/dL (74-106); Potassium 4.4 mmol/L (3.5-5.1); Sodium Level 140 mmol/L (136-145)
[2022-05-06] MEDS: Ensure Surgery 237 ML LIQUID PO (07:47)
--- NOTE | 2022-05-06 08:59 | NURSING ---
CALLED AND FOLLOW UP APPOINTMENT MADE WITH DR. MANN FOR PT ON 05/18/22 AT 1500. OFFICE REQUESTED 1 FAMILY MEMBER TO BE THERE. WILL CALL FAMILY AND LET THEM KNOW. TRANSPORT NEEDS SET UP. RN AWARE.
[2022-05-06] MEDS: Menthol/Lanolin/Calamine/Znox 113 GM Tube 1 APPLIC TOPICAL ×2 (09:31→20:59)
[2022-05-06] MEDS: Tuberculin,Purif.prot.deriv. 50 TU/ML Vial 0.1 ML ID (09:59)
[2022-05-06 10:00] VITALS: PULSE 92; O2SAT 99
[2022-05-06] MEDS: oxyCODONE 5 MG Tablet PO ×2 (10:44→18:22)
--- NOTE | 2022-05-06 11:38 | NURSING ---
COOKIE SWALLOW AT 1300 ON Wednesday05/07/22.
--- NOTE | 2022-05-06 11:46 | NURSING ---
equipment coordinator Note; Activity Asset: Complete
[2022-05-06 14:08] VITALS: BP 96/63; PULSE 104; RESP 16; TEMP 36.6; O2SAT 96
--- NOTE | 2022-05-06 15:25 | CASEMGMT ---
Social Work Met with patient to complete initial assessment. Introduced self and role. Verified/updated contacts. Discussed code status and MOLST form. Pt wishes to be DNR-CC. MOLST placed in Dr folder. Nursing notified of DNR. Pt unsure if he has advanced directives but declined to complete. Educated to [facility] insurance with NRD 05/07 and continued stay is not guaranteed with each review. Pts goal is to return home alone. SW to continue to follow for DC planning/ RANDEE Bernard
--- NOTE | 2022-05-06 18:35 | NURSING ---
pt daughter was in this evening visiting and stated that she has erika ring and that her dad might have that as well.
[2022-05-06] MEDS: Mirtazapine 15 MG Tablet 7.5 MG PO (20:58)
[2022-05-06] MEDS: Atorvastatin Calcium 20 MG Tablet PO (20:59)
[2022-05-07] MEDS: 0.9% Saline Lock 10 ML Syringe IV (05:39)
[2022-05-07] MEDS: Citalopram 10 MG Tablet PO (05:40)
[2022-05-07] MEDS: APIXABAN 5 MG TABLET PO ×2 (05:40→18:18)
[2022-05-07] MEDS: Acetaminophen 500 MG Tablet 1000 MG PO ×3 (05:40→21:14)
[2022-05-07] MEDS: Senna/Docusate Sodium 1 Tablet 2 TABLET PO ×2 (05:40→18:18)
[2022-05-07] MEDS: Hydrocortisone 2.5% Crm 1 APPLIC TOPICAL (05:42)
[2022-05-07] MEDS: Menthol/Lanolin/Calamine/Znox 113 GM Tube 1 APPLIC TOPICAL ×2 (08:14→21:18)
--- NOTE | 2022-05-07 10:45 | ST.MBS ---
Modified Barium Swallow - Patient Information Study Date: 05/07/22 Study Time: 12:00 Direct Billable Minutes: 120 Total Minutes procedure & reportin Diagnosis: CKD, Stage 3 (N18.31) Referring Physician: John Becerril Chi Reason for Referral: Objectively assess swallow function, risk for aspiration, and determine recommendations for least restrictive diet textures and compensatory strategies to improve safety of swallow. Medical History: Pt is a 86-year-old male with PMH including GERD, HTN, A fib, and CVA who presented to [facility] ED 05/03/2022 with L hip fx. 05/04/2022 pt underwent L hip cephalomedullary nail. He was admitted to [facility] TCU 05/05/2022 for rehab prior to discharge home. Pt has ill fitting upper dentures and prefers to eat without them. He reports eating regular textures, they just take more time. He also feels several foods and drinks get ?hung up? in his throat, causing coughing and choking. Most recent experience was with hamburger meat w/ gravy during this hospitalization. He reports at times regurgitating meats. RN ordered ST, who completed BSE 05/06/2022 and recommended Easy to Chew textures / Thin liquids with plan for MBSS 05/07/2022 to further assess concerns for dysphagia. Current Diet Ordered: Easy to Chew textures / Thin liquids Dentition: Upper Dentures - ill fitting - pt doesn't wear Mental Status: WNL Respiratory Status: Oxygenating on Room Air - Penetration-Aspiration Scale Penetration-Aspiration Scale: OBJECTIVE ASSESSMENT OF SWALLOW FUNCTION (QUANTITATIVE ? PER TRIAL): PENETRATION / ASPIRATION SCALE (VIDES): 1 = does not enter airway 2 = enters airway/above vocal folds/ejected 3 = enters airway/above vocal folds/not ejected 4 = enters airway/contacts vocal folds/ejected 5 = enters airway/contacts vocal folds/not ejected 6 = enters airway/below vocal folds/ejected 7 = enters airway/below vocal folds/not ejected despite effort 8 = enters airway/below vocal folds/no effort VIDEOFLOROSCOPIC SCALE SCORE (VIDES): Grade I = aspiration of material that has penetrated into the laryngeal vestibule, intact cough reflex Grade II = aspiration < 10 % of the bolus, intact cough reflex Grade III = aspiration of < 10 % of the bolus, reduced cough reflex or aspiration of > 10 % of the bolus, intact cough reflex Grade IV = aspiration of > 10 % of the bolus, reduced cough reflex - Penetration-Aspiration Scale Score Thin Liquid via teaspoon Result: 1= does not enter airway Thin Liquid via teaspoon Trial 2 Result: 1= does not enter airway Thin Liquid via large single sip from cup Result: 5= enters airways/contacts vocal folds/not ejected Thin Liquid via small single sip from cup Result: 3= enters airways/above vocal folds/not ejected - Cued cough and re-swallow, which was effective in clearing a majority of contrast from the laryngeal vestibule Thin Liquid via small single sip from cup Effortful swallow Result: 2= enter airway/above vocal folds/ejected [place] Thick Liquid via large single sip from cup Result: 1= does not enter airway Honey Thick Liquid via small single sip from cup Result: 1= does not enter airway Pudding via teaspoon with esophageal screen Result: 1= does not enter airway Thin Liquid via large single sip from cup Effortful swallow with esophageal screen Result: 2= enter airway/above vocal folds/ejected 1/4 Cookie with esophageal screen Result: 1= does not enter airway Thin Liquid via single sip from straw with esophageal screen Result: 1= does not enter airway - Oral Phase Labial Seal: No Labial Escape Tongue Control During Bolus Hold: Escape to lateral buccal cavity/floor of mouth Bolus Preparation/Mastication: Slow prolonged chewing/mashing with complete recollection Bolus Transport/Lingual Motion: Slowed tongue motion Oral Residue: Residue collection on oral structures - Pharyngeal Phase Initiation of Pharyngeal Swallow: Bolus head in valleculae Soft Palate Elevation: No bolus between soft palate and pharyngeal wall Laryngeal Elevation: Partial superior movement thyroid cart/partial apprx aryt-epig petiole Anterior Hyoid Excursion: Partial anterior movement Epiglottic Movement: No inversion - inconsistent epiglottic inversion Laryngeal Vestibule Closure at Height of Swallow: Incomplete; narrow column of air/contrast in laryngeal vestibule Pharyngeal Stripping Wave: Present - diminished Pharyngoesophageal Segment Opening: Parital distension and partial duration; parital obstruction of flow Tongue Base Retraction: Wide column of contrast between tongue base & post. pharyngeal wall Pharyngeal Residue: Majority of contrast within or on pharyngeal structures - ~50% of cookie bolus remained in vallecula after the initial swallow - Esophageal Phase Esophageal Clearance: Esophageal retention w/ retrograde flow below pharyngoesophageal seg. - Diagnosis/Impression Diagnosis: Mild-moderate oropharyngeal dysphagia; Esophageal dysphagia Impression: The oral phase is primarily marked by... -Slowed tongue motion for A-P transport -Mild-moderate oral residue after the swallow, which cleared with independent initiation of multiple swallows. He demonstrated piecemeal deglutition with pudding and large sips. -Prolonged, but adequate mastication of 1/4 cookie. The pharyngeal phase is primarily marked by... -Mildly decreased airway closure during the swallow due to decreased anterior hyoid excursion, inconsistent epiglottic inversion, and decreased laryngeal elevation. During certain trials, she had partial epiglottic inversion, while other trials she demonstrated little to no epiglottic inversion. -Moderately decreased tongue base retraction, mildly decreased UES opening/duration, and mildly decreased pharyngeal stripping wave with resulting mild-moderate pharyngeal residues after the swallow. -No aspiration observed during the study. Laryngeal penetration of large sip of thin liquids via cup to the vocal folds that did not fully eject from the laryngeal vestibule. Use of hard swallow was most effective in decreasing laryngeal penetration and aspiration risk during the swallow. He also benefits from decreased bolus size and use of multiple swallows. He independently uses multiple swallows; however, his normal sip size is large. The esophageal phase is primarily marked by... -Esophageal retention of pudding and cookie in mid and lower esophagus with retrograde flow remaining below UES. This esophageal retention had improved when provided thin liquid wash. -The patient's mid and lower esophagus appear tortuous and he has very slow emptying through the LES. He would benefit from GI consult. Picture of thin liquid via straw with esophageal screen. - Recommendations Diet: Thin Liquids - Easy to Chew textures (IDDSI Level 7); Minced and moist meats (IDDSI Level 5) Compensatory Strategies: Small Bites, Small Sips - Effortful swallows on each sip, Slow Rate, Multiple Swallows, Alternate bites/solids and sips/liquids, Sitting upright, Remain sitting upright for 30 minutes after PO intake Supervision: 1:1 Close Supervision Recommend Repeat Modified Barium Swallow: TBD Need for Skilled Speech Therapy Services: Yes Comment: Will recommend the patient for continued dysphagia therapy to address deficits in oropharyngeal swallow function. Will recommend the patient for oropharyngeal strengthening to improve tongue base retraction, laryngeal elevation, pharyngeal contraction, and duration of UES opening (Cece, CTAR, Effortful, Chen). The patient would benefit from thorough education regarding diet recommendations and recommended compensatory strategies. Recommended Referrals: GI Consult - Pt presented with tortuous lower esophagus and retention with retrograde flow of various consistencies. He greatly benefits from alternating bites and sips. Education Completed: 1. Described result of evaluation. - DOCUMENTATION NURSE thoroughly educated the patient and RN, Eber, in recommendations and the above aspiration and reflux precautions., 2. Pt understands evaluation & agrees with goals and treatment plan., 7. Pt requires further education on strategies & risks. - Status Active ST Patient: Active - Contact Information [facility] Speech Therapy:: Nora Yepez M.A. [facility]-DOCUMENTATION NURSE Speech-Language Pathologist [facility] [address] [place] [address] [phone] 05/07/22 10:49
--- NOTE | 2022-05-07 13:33 | PCM.PN.DRR ---
TCU RX Drug Regimen Review Subjective: 86 YOM admitted to TCU S/P left hip fracture with repair. Admitted to TCU for strengthening and rehabilitation prior ot discharge home where he resides alone. Objective: Allergies No Known Allergies Allergy (Verified 05/16/18 08:25) Current Medications Generic Name Dose Route Start Last Admin Trade Name Freq PRN Reason Stop Dose Admin Acetaminophen 1,000 mg 05/05/22 22:00 05/07/22 05:40 Acetaminophen 500 Mg Tablet PO 1,000 mg Q8 DENISE Administration Apixaban 5 mg 05/06/22 06:00 05/07/22 05:40 Apixaban 5 Mg Tablet PO 5 mg BID DENISE Administration Atorvastatin Calcium 20 mg 05/05/22 22:00 05/06/22 20:59 Atorvastatin Calcium 20 Mg Tablet PO 20 mg QHS DENISE Administration Calamine/Phenol 1 applic 05/06/22 10:00 05/07/22 08:14 Menthol/Lanolin/Calamine/Znox 113 Gm Tube TOPICAL 1 applic BID@1000,2200 DENISE Administration Protocol Citalopram Hydrobromide 10 mg 05/06/22 06:00 05/07/22 05:40 Citalopram 10 Mg Tablet PO 10 mg DAILY DENISE Administration Enteral Nutritional Formula 237 ml 05/06/22 07:45 05/07/22 12:24 Ensure Surgery 237 Ml Liquid PO Not Given TIDCM DENISE Hydrocortisone 1 applic 05/06/22 08:02 05/07/22 05:42 Hydrocortisone 2.5% Crm TOPICAL 1 applic BID PRN PRN Administration RASH/TOPICAL IRRITATION Protocol Magnesium Hydroxide 30 ml 05/05/22 19:27 Magnesium Hydroxide 30 Ml Udc PO DAILY PRN Constipation Mirtazapine 7.5 mg 05/06/22 22:00 05/06/22 20:58 Mirtazapine 15 Mg Tablet PO 7.5 mg QHS DENISE Administration Oxycodone HCl 5 mg 05/05/22 18:53 05/06/22 18:22 Oxycodone 5 Mg Tablet PO 5 mg Q4H PRN PRN Administration Pain Score 4-10 Senna/Docusate Sodium 2 tablet 05/05/22 19:30 05/07/22 05:40 Senna/Docusate Sodium 1 Tablet PO 2 tablet BID DENISE Administration Sodium Chloride 10 - 40 ml 05/05/22 18:54 05/07/22 05:39 0.9% Saline Lock 10 Ml Syringe IV 10 ml UD PRN Administration SALINE FLUSH Tramadol HCl 50 mg 05/06/22 07:53 Tramadol 50 Mg Tablet PO Q6H PRN PRN Pain Score 1-3 Tuberculin PPD 0.1 ml 05/13/22 10:00 Tuberculin,Purif.Prot.Deriv. 50 Tu/Ml Vial ID 05/13/22 10:01 X1 ONE Problem List (Last Reviewed 05/04/22 @ 12:[address] Josh Sales MD) Chronic kidney disease, stage 3a (Chronic) Hyperlipidemia (Acute) Stroke (Acute) Depression (Acute) Hypertension (Chronic) Sinus arrhythmia (Acute) Debility (Acute) Closed left hip fracture (Acute) Vital Signs Temp Pulse Resp BP Pulse Ox O2 Del Method 97.8 F 104 H 16 96/63 96 Room Air 05/06/22 14:08 05/06/22 14:08 05/06/22 14:08 05/06/22 14:08 05/06/22 14:08 05/06/22 14:08 Oxygen Delivery Method Room Air Weight: 71.8 kg Body Mass Index (BMI) 23.3 Sodium 140 mmol/L (136-145) 05/06/22 05:18 Potassium 4.4 mmol/L (3.5-5.1) 05/06/22 05:18 Chloride 108 mmol/L (98-107) H 05/06/22 05:18 Carbon Dioxide 29.0 mmol/L (21.0-32.0) 05/06/22 05:18 Anion Gap 3 (5-15) L 05/06/22 05:18 BUN 46 mg/dL (7-18) H 05/06/22 05:18 Creatinine 1.45 mg/dL (0.70-1.30) H 05/06/22 05:18 Est GFR (MDRD) Af Amer 59 mL/min (>60) L 05/06/22 05:18 Est GFR (MDRD) Non-Af 49 mL/min (>60) L 05/06/22 05:18 BUN/Creatinine Ratio 31.7 RATIO (10-20) H 05/06/22 05:18 Glucose 127 mg/dL (74-106) H 05/06/22 05:18 Assessment/Plan: 1. Pain: Tylenol 1000mg PO Q8h, Tramadol 50mg PO Q6h PRN Pain 1-3, Oxycodone 5mg PO Q4h PRN pain 4-10. Please continue to monitor for increased/decreased S/S pain, PRN medication usage, oversedation with narcotic usage. - To date, the patient has utilized zero doses of tramadol and 2 doses of oxycodone. Pain scale pre-medication was rated 4-6/10, post medication pain ranked 0/10. It appears at this time that the patient's pain is well controlled. 2. DVT Prophylaxis S/p surgery: Eliquis 5mg PO BID. Please continue to monitor for S/S bleeding/bruising, H/H (Hgb 8.8, Hct 26.8 as of 05/06/22). Please determine duration of anticoagulation. Noted that patient had an EKG which demonstrated atrial fibrillation. The patient's CHADS2-VaSc score is 5, indicating the patient is high risk for developing a clot. Please determine risk vs. benefit to see if Eliquis should be continued indefinitely, thank you. Bowel: Senna/Docusate 2 tab PO BID, MOM 30mL PO Daily PRN. Please continue to monitor for increased/decreased constipation and/or diarrhea. - To date, the patient has not had a bowel movement per EMR review. If patient does not have a BM in the next 24-48hr, consider administering PRN medications, thank you. 3. Stroke/HLD: Lipitor 20mg PO QHS, Aspirin 81mg PO Daily (currently on hold while taking Eliquis per H/P). Please continue to monitor for S/S muscle weakness, Lipid panel annually or sooner if clninically indicated. The patient has not had a lipid panel completed since 2018, please consider ordering a lipid panel this admission, thank you. 4. Psoriasis: Hydrocortisone Cream topically BID PRN. Please continue to monitor rash/topical irritation. 5. Appetite stimulation: Remeron 7.5mg PO QHS. Please continue to monitor for medication effectiveness, drowsiness, and constipation. 6. Skin Integrity: Calmoseptine topically BID. Please continue to monitor for skin breakdown, redness/sore development. Assessment/Plan for indications treated with psychotropic medications: 1. Depression: Citalopram 10mg PO Daily. Please see note in H/P regarding GDR recommendation at this time. Citalopram is a Beer's criteria medication which can increase the risk of falls in patient's >65 years of age. Please evaluate risk v. benefit of use given the patient has a history of falls, thank you. Medical chart and medication regimen reviewed. The following medication irregularities or issues were identified: 1. Atrial fibrillation/ DVT Prophylaxis S/P surgery: Eliquis 5mg PO BID. Please determine duration of anticoagulation. Noted that patient had an EKG which demonstrated atrial fibrillation. The patient's current CHADS2-VaSc score is 5, indicating the patient is high risk for developing a clot. Please determine risk vs. benefit to see if Eliquis should be continued indefinitely, thank you. 2. Atrial Fibrillation: See above regarding anticoagulation. The patient also is not on any rate/ rhythm controlled medications. Patient's pulse has been slightly elevated with a range of 92-105. If patient is persistently in afib, please determine if medical management is appropriate, thank you. 3.Stroke/HLD: Lipitor 20mg PO QHS. The patient has not had a lipid panel completed since 2018 per EMR review. Please consider ordering a lipid panel this admission, thank you. 4.Depression: Citalopram is a Beer's criteria medication which can increase the risk of falls in patient's >65 years of age. Please evaluate risk v. benefit of use given the patient has a history of falls, thank you. Date of Note:: 05/07/22
[2022-05-07 13:39] VITALS: BP 95/54; PULSE 100; RESP 12; TEMP 37.1; O2SAT 99
[2022-05-07] MEDS: Mirtazapine 15 MG Tablet 7.5 MG PO (21:14)
[2022-05-07] MEDS: Atorvastatin Calcium 20 MG Tablet PO (21:14)
[2022-05-07 21:36] VITALS: PULSE 104; RESP 16; O2SAT 97
[2022-05-08 05:50] LABS: Hematocrit 26.7 % (40-54); Hemoglobin 8.7 g/dL (13.0-16.5)
[2022-05-08] MEDS: Acetaminophen 500 MG Tablet 1000 MG PO ×3 (06:44→20:08)
[2022-05-08] MEDS: APIXABAN 5 MG TABLET PO ×2 (06:44→18:25)
[2022-05-08] MEDS: Citalopram 10 MG Tablet PO (06:45)
[2022-05-08] MEDS: Senna/Docusate Sodium 1 Tablet 2 TABLET PO ×2 (06:45→18:25)
[2022-05-08] MEDS: 0.9% Saline Lock 10 ML Syringe IV ×2 (06:46→18:33)
[2022-05-08] MEDS: Menthol/Lanolin/Calamine/Znox 113 GM Tube 1 APPLIC TOPICAL ×2 (09:25→20:08)
[2022-05-08 09:30] VITALS: PULSE 114; RESP 18; O2SAT 96
[2022-05-08] MEDS: Magnesium Hydroxide 30 ML UDC PO (09:35)
[2022-05-08] MEDS: traMADol 50 MG Tablet PO (09:40)
[2022-05-08 11:35] VITALS: PULSE 96
--- NOTE | 2022-05-08 11:45 | NURSING ---
message left on answering machine for consult to DR Duarte regarding esophageal retention on MBS. awaiting return call.
[2022-05-08 14:25] VITALS: BP 102/68; PULSE 104; RESP 16; TEMP 36.3; O2SAT 97
--- NOTE | 2022-05-08 16:40 | NURSING ---
pt had bright red blood in toilet after having med BM, several balls of stool. also noted some bleeding from cleft with open area, moisture related. pt states its psoriasis applied chris, left ALIRIO.
--- NOTE | 2022-05-08 16:52 | CON.PCM_ITS ---
Assessment & Plan Assessment/Plan (1) Dysphagia: PLAN: Oropharyngeal and esophageal dysphagia. He is on a modified diet. He should undergo an upper endoscopy to evaluate upper GI tract. 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 Hold Eliquis on 05/10/2022 for an EGD on 05/11/2022. HPI Consult Data Date of Consult: 05/08/22 HPI Narrative Reason for Consultation: dysphagia HPI Narrative: OLEG WASSERMAN, is a 86 M who presented to the ED with left hip pain status post fall with a left hip fracture and underwent left hip cephalomedullary nail fixation 05/04/2022. While in the hospital he was noted to going to atrial fibrillation. He was started on Eliquis 5 mg twice a day also takes aspirin 81 mg once a day. He feels several foods and drinks get ?hung up? in his throat, causing coughing and choking. Most recent experience was with hamburger meat w/ gravy during this hospitalization. He reports at times regurgitating meats.? He does have history of esophageal dysphagia so a barium esophagram was ordered and swallowing study was ordered. He had markedly abnormal oropharyngeal study and esophageal study. 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 [facility] Medical History (Updated 05/08/22 @ 16:[address] Raya Friend, DO) A-fib Depression HTN (hypertension) Prostate enlargement Stroke/cerebrovascular accident Home Medications citalopram 10 mg tablet 10 mg PO DAILY Check with primary doctor 05/03/22 [History Last Taken 05/02/22 17:00] rosuvastatin 10 mg tablet 10 mg PO DAILY Check with primary doctor 05/03/22 [History Last Taken 05/02/22 17:00] acetaminophen 500 mg tablet 1,000 mg PO Q8 Pain 05/05/22 [History Last Taken Unknown] apixaban 5 mg tablet (Eliquis) 5 mg PO BID Blood Thinner 05/05/22 [History Last Taken Unknown] aspirin 81 mg chewable tablet 81 mg PO DAILY@0800 Heart 05/05/22 [History Last Taken Unknown] nut.tx.comp. immune systm,reg 0.08 gram-1.4 kcal/mL oral liquid (Ensure Surgery) 237 ml PO TIDCM Supplement 05/05/22 [History Last Taken Unknown] oxycodone 5 mg tablet 5 mg PO Q4H PRN PRN Pain Score 4-10 7 days #10 tabs 05/05/22 [Rx Last Taken Unknown] Allergy/AdvReac Type Severity Reaction Status Date / Time No Known Allergies Allergy Verified 05/16/18 08:25 Surgical History (Updated 05/05/22 @ 19:[address] John Becerril MD) History of transurethral resection of prostate Social History (Updated 05/05/22 @ 19:[address] John Becerril MD) household members: none Smoking Status: Never smoker alcohol intake: never substance use type: does not use ROS Constitutional Constitutional: Reports systems reviewed and no addt'l complaints, except as documented Eyes Eyes: Reports systems reviewed and no addt'l complaints, except as documented ENT HEENT: Reports systems reviewed and no addt'l complaints, except as documented Cardiovascular Cardiovascular: Reports systems reviewed and no addt'l complaints, except as documented Respiratory/Chest Respiratory/Chest: Reports systems reviewed and no addt'l complaints, except as documented Gastrointestinal Gastrointestinal: Reports systems reviewed and no addt'l complaints, except as documented Genitourinary Genitourinary: Reports systems reviewed and no addt'l complaints, except as documented Musculoskeletal Musculoskeletal: Reports systems reviewed and no addt'l complaints, except as documented Integumentary Integumentary: Reports other Details: psoriasis Neurologic Neurologic: Reports systems reviewed and no addt'l complaints, except as documented Psychiatric Psychiatric: Reports systems reviewed and no addt'l complaints, except as documented Lab / Micro Data Result Diagrams: 05/08/22 05:05 05/06/22 05:18 Labs: Laboratory Results - last 24 hr 05/08/22 05:05: Hgb 8.7 L, Hct 26.7 L Charges/Coding Visit Charges Inpatient E&M: 17481 SNF Init L2
[2022-05-08] MEDS: Atorvastatin Calcium 20 MG Tablet PO (20:08)
[2022-05-08] MEDS: Mirtazapine 15 MG Tablet 7.5 MG PO (20:08)
[2022-05-09] MEDS: APIXABAN 5 MG TABLET PO ×2 (06:37→16:53)
[2022-05-09] MEDS: Senna/Docusate Sodium 1 Tablet 2 TABLET PO ×2 (06:37→16:54)
[2022-05-09] MEDS: Citalopram 10 MG Tablet PO (06:37)
[2022-05-09] MEDS: Acetaminophen 500 MG Tablet 1000 MG PO ×3 (06:38→20:02)
[2022-05-09] MEDS: Ensure Plus High Protein 120 ML LIQUID PO ×3 (08:59→16:53)
[2022-05-09] MEDS: Menthol/Lanolin/Calamine/Znox 113 GM Tube 1 APPLIC TOPICAL ×2 (08:59→20:06)
[2022-05-09 10:00] VITALS: RESP 16; O2SAT 96
--- NOTE | 2022-05-09 15:31 | PN_ITS ---
Subjective Subjective Patient is doing well. He is having mild esophageal dysphagia. I had a long talk with his daughter and son at the bedside. I suspect he has eosinophilic esophagitis causing a asthma-like reaction in his esophagus as seen on imaging. Objective Data Objective Data Vital Signs: Vital Signs Temp Pulse Resp BP Pulse Ox O2 Del Method 97.3 F L 104 H 16 102/68 97 Room Air 05/08/22 14:25 05/08/22 14:25 05/08/22 14:25 05/08/22 14:25 05/08/22 14:25 05/08/22 14:25 Oxygen Delivery Method Room Air Weight: 158 lb 4.67 oz Body Mass Index (BMI) 23.3 Intake & Output: Intake and Output for Last 24 Hours 05/07/22 05/08/22 05/09/22 23:59 23:59 23:59 Intake Total 940 / 940 480 / 480 600 / 600 Balance 940 / 940 480 / 480 600 / 600 Lab / Micro Data Result Diagrams: 05/08/22 05:05 05/06/22 05:18 Micro: Microbiology 05/07/22 05:38 Nasal Secretion SARS-CoV-2 Antigen (Rapid) - Final Physical Exam Const alert, oriented x3, no apparent distress and healthy appearing General Appearance: cooperative, well kempt and well developed Orientation / Consciousness: awake, oriented to person, oriented to place and oriented to time HEENT normocephalic and moist oral mucous membranes Eyes PERRL, EOMs intact bilaterally and conjunctivae normal Neck supple, no JVD, thyroid normal and no carotid bruits General: trachea midline Resp normal respiratory effort, no retractions, no use of accessory muscles and clear to auscultation bilaterally Auscultation: Negative for rales, rhonchi or wheezes Cardio S1 normal heart sound, S2 normal heart sound, no murmurs, no rub and no gallops Cardio Narrative: Heart rate and rhythm is irregular GI normal to inspection, nondistended, normoactive bowel sounds, soft to palpation, non-tender and non-distended Extremity no clubbing, cyanosis or edema Skin no rashes or lesions noted Neuro oriented x3, CN's II-XII intact bilaterally, moves all extremities, no focal motor deficits and no sensory deficits noted Sensorium / Orientation: awake and alert Speech: speech normal Psych affect normal Assessment & Plan Assessment/Plan (1) Dysphagia: PLAN: 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 Hold Eliquis the night of 05/10/2022. Charges/Coding Visit Charges Inpatient E&M: [address] [facility] Subs L2
[2022-05-09 15:55] VITALS: BP 108/65; PULSE 87; RESP 16; TEMP 36.6; O2SAT 96
[2022-05-09] MEDS: Atorvastatin Calcium 20 MG Tablet PO (20:02)
[2022-05-09] MEDS: Mirtazapine 15 MG Tablet 7.5 MG PO (20:02)
[2022-05-10] MEDS: Citalopram 10 MG Tablet PO (05:44)
[2022-05-10] MEDS: Senna/Docusate Sodium 1 Tablet 2 TABLET PO ×2 (05:44→17:48)
[2022-05-10] MEDS: APIXABAN 5 MG TABLET PO (05:45)
[2022-05-10] MEDS: Acetaminophen 500 MG Tablet 1000 MG PO ×3 (05:45→20:52)
[2022-05-10 07:51] LABS: Hematocrit 29.7 % (40-54); Hemoglobin 9.8 g/dL (13.0-16.5)
[2022-05-10] MEDS: Menthol/Lanolin/Calamine/Znox 113 GM Tube 1 APPLIC TOPICAL (10:06)
[2022-05-10] MEDS: Ensure Plus High Protein 120 ML LIQUID PO ×2 (13:55→17:47)
[2022-05-10 15:57] VITALS: BP 107/70; PULSE 72; RESP 17; TEMP 36.7; O2SAT 96
[2022-05-10] MEDS: Mirtazapine 15 MG Tablet 7.5 MG PO (20:53)
[2022-05-10] MEDS: Atorvastatin Calcium 20 MG Tablet PO (20:53)
--- NOTE | 2022-05-11 08:16 | NURSING ---
notified daughter time of surgery today for pt. daughter stated appreciated.
--- NOTE | 2022-05-11 12:37 | NURSING ---
Addendum entered by Eber Armstrong 05/11/22 14:05: PT RETURNED TO FLOOR AT 1400. EGD NOT DONE DUE TO DRAlejandro NOT WANTING TO DO PROCEDURE DUE TO PT IN A FIB 120-130 HR. MAY DO PROCEDURE TOMORROW PER . WILL LET KNOW. RN AWARE. Original Note: PT LEFT FLOOR BY WHEEL CHAIR AT [address] ROSARIO.
[2022-05-11] MEDS: Ensure Plus High Protein 120 ML LIQUID PO ×2 (14:12→17:24)
[2022-05-11] MEDS: Acetaminophen 500 MG Tablet 1000 MG PO ×2 (14:13→19:54)
[2022-05-11 15:09] VITALS: BP 110/64; PULSE 90; RESP 16; TEMP 36.3; O2SAT 96
--- NOTE | 2022-05-11 16:35 | PCM.PROGNOTE ---
Subjective Subjective Patient did not have his endoscopy today because he was noted to be in rapid afib by anesthesia. Therefore, the test was put on hold. Objective Data Objective Data Vital Signs: Vital Signs Temp Pulse Resp BP Pulse Ox O2 Del Method 97.4 F L 90 16 110/64 96 Room Air 05/11/22 15:09 05/11/22 15:09 05/11/22 15:09 05/11/22 15:09 05/11/22 15:09 05/11/22 15:09 Oxygen Delivery Method Room Air Weight: 158 lb 4.67 oz Body Mass Index (BMI) 23.3 Intake & Output: Intake and Output for Last 24 Hours 05/09/22 05/10/22 05/11/22 23:59 23:59 23:59 Intake Total 840 / 840 720 / 720 Balance 840 / 840 720 / 720 Lab / Micro Data Result Diagrams: 05/10/22 06:40 05/06/22 05:18 Micro: Microbiology 05/09/22 15:36 Nasal Secretion SARS-CoV-2 Antigen (Rapid) - Final 05/07/22 05:38 Nasal Secretion SARS-CoV-2 Antigen (Rapid) - Final Physical Exam Const alert, oriented x3, no apparent distress and healthy appearing General Appearance: cooperative, well kempt and well developed Orientation / Consciousness: awake, oriented to person, oriented to place and oriented to time HEENT normocephalic and moist oral mucous membranes Eyes PERRL, EOMs intact bilaterally and conjunctivae normal Neck supple, no JVD, thyroid normal and no carotid bruits General: trachea midline Resp normal respiratory effort, no retractions, no use of accessory muscles and clear to auscultation bilaterally Auscultation: Negative for rales, rhonchi or wheezes Cardio S1 normal heart sound, S2 normal heart sound, no murmurs, no rub and no gallops Cardio Narrative: Heart rate and rhythm is irregular GI normal to inspection, nondistended, normoactive bowel sounds, soft to palpation, non-tender and non-distended Extremity no clubbing, cyanosis or edema Skin no rashes or lesions noted Neuro oriented x3, CN's II-XII intact bilaterally, moves all extremities, no focal motor deficits and no sensory deficits noted Sensorium / Orientation: awake and alert Speech: speech normal Psych affect normal Assessment & Plan Assessment/Plan (1) Dysphagia: PLAN: Patient can go ack on his eliquis. Retry upper endoscopy when it ok with anesthesia. Charges/Coding Visit Charges Inpatient E&M: 50530 SNF Subs L2
[2022-05-11 18:29] VITALS: BP 113/80; PULSE 113
[2022-05-11] MEDS: Metoprolol Tartrate 25 MG Tablet PO (18:29)
[2022-05-11 18:31] VITALS: BP 113/80; PULSE 113
--- NOTE | 2022-05-11 19:06 | PCA ---
this TELETYPE OPERATOR offer To help patient get washed up for bed and assist with HS care. Patient stated that they did not need any further assiatance and would liek to get cleaned up in the morning
[2022-05-11] MEDS: traMADol 50 MG Tablet PO (19:53)
[2022-05-11] MEDS: Atorvastatin Calcium 20 MG Tablet PO (19:55)
[2022-05-11] MEDS: Mirtazapine 15 MG Tablet 7.5 MG PO (19:55)
[2022-05-11] MEDS: Menthol/Lanolin/Calamine/Znox 113 GM Tube 1 APPLIC TOPICAL (19:57)
[2022-05-11 22:20] VITALS: PULSE 98; O2SAT 96
[2022-05-12] MEDS: Acetaminophen 500 MG Tablet 1000 MG PO ×2 (05:49→21:40)
[2022-05-12] MEDS: APIXABAN 5 MG TABLET PO (05:49)
[2022-05-12 05:50] VITALS: BP 114/60; PULSE 102
[2022-05-12] MEDS: Metoprolol Tartrate 25 MG Tablet PO ×2 (05:50→17:55)
[2022-05-12] MEDS: Senna/Docusate Sodium 1 Tablet 2 TABLET PO (05:50)
[2022-05-12] MEDS: Citalopram 10 MG Tablet PO (05:51)
[2022-05-12] MEDS: Ensure Plus High Protein 120 ML LIQUID PO ×2 (08:25→17:51)
[2022-05-12 09:30] VITALS: PULSE 95; RESP 18; O2SAT 96
[2022-05-12] MEDS: Menthol/Lanolin/Calamine/Znox 113 GM Tube 1 APPLIC TOPICAL ×2 (09:48→21:33)
[2022-05-12] MEDS: 0.9% Saline Lock 10 ML Syringe IV (09:49)
--- NOTE | 2022-05-12 10:39 | NURSING ---
CARIDAD CAME UP TO GET PT FOR EGD. THIS NURSE STATED TO THEM THAT DR. ROSARIO DID NOT LET US KNOW ABOUT ANY PROCEDURE TODAY AND PT IS BACK ON ELIQUIS AND ATE THIS MORNING. LAST NOTE FROM WAS PROCEDURE WAS ON HOLD. STEFANIE LEFT AND THEN CARIDAD CALLED BACK AND STATED DR. ROSARIO WANTS TO TRY AND WORK PT IN TODAY SO TO PUT PT ON NPO OF NOW. THIS NURSE STATED TO THEM THAT PT WAS JUST STARTED BACK UP ON ELIQUIS. CARIDAD STATED THERE AWARE AND IT WAS OK. THIS NURSE PUT PT ON NPO AND EXPLAINED TO PT AND FAMILY THAT PT WILL HAVE PROCEDURE SOME TIME TODAY. FAMILY OK WITH PROCEDURE TODAY AND STATED THAT THEY TALKED TO THERE DAD MORE ABOUT THE COVID BOOSTER AND FAMILY AND PT REFUSED TO TAKE COVID SHOT AT THIS TIME BUT MAY WANT IT BEFORE PT LEAVES. RN AWARE
[2022-05-12 11:08] VITALS: BP 86/62; PULSE 73
[2022-05-12 11:16] VITALS: BP 86/62; PULSE 73
--- NOTE | 2022-05-12 13:46 | NURSING ---
Updated Dr Becerril that one time dose of Lopressor held d/t low BP and HR within in normal limits.
--- NOTE | 2022-05-12 13:47 | NURSING ---
PT LEFT FLOOR BY WHEEL CHAIR FOR EGD PROCEDURE AT 1345.
[2022-05-12 14:45] VITALS: BP 97/57; PULSE 89; RESP 16; TEMP 36.2; O2SAT 92
--- NOTE | 2022-05-12 14:50 | HP.PCM_ITS ---
History and Physical Date of Admission: 05/12/22 Assessment & Plan Assessment/Plan (1) Dysphagia: PLAN: Oropharyngeal and esophageal dysphagia.? He is on a modified diet.? He should undergo an upper endoscopy to evaluate upper GI tract.? 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 Hold Eliquis on 05/10/2022 for an EGD on 05/11/2022. HPI Consult Data Date of Consult: 05/08/22 HPI Narrative Reason for Consultation: dysphagia HPI Narrative: OLEG WASSERMAN, is a 86 M who presented to the ED with left hip pain status post fall with a left hip fracture and? underwent left hip cephalomedullary nail fixation 05/04/2022.? While in the hospital he was noted to going to atrial fibrillation.? He was started on Eliquis 5 mg twice a day also takes aspirin 81 mg once a day. ?He feels several foods and drinks get ?hung up? in his throat, causing coughing and choking. Most recent experience was with hamburger meat w/ gravy during this hospitalization. He reports at times regurgitating meats.? He does have history of esophageal dysphagia so a barium esophagram was ordered and swallowing study was ordered.? He had markedly abnormal oropharyngeal study and esophageal study .? 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 [facility] Medical History?(Updated 05/08/22 @ 16:[address] Raya Friend, DO) A-fib Depression HTN (hypertension) Prostate enlargement Stroke/cerebrovascular accident Home Medications citalopram 10 mg tablet 10 mg PO DAILY Check with primary doctor 05/03/22 [History Last Taken 05/02/22 17:00] rosuvastatin 10 mg tablet 10 mg PO DAILY Check with primary doctor 05/03/22 [History Last Taken 05/02/22 17:00] acetaminophen 500 mg tablet 1,000 mg PO Q8 Pain 05/05/22 [History Last Taken Unknown] apixaban 5 mg tablet (Eliquis) 5 mg PO BID Blood Thinner 05/05/22 [History Last Taken Unknown] aspirin 81 mg chewable tablet 81 mg PO DAILY@0800 Heart 05/05/22 [History Last Taken Unknown] nut.tx.comp. immune systm,reg 0.08 gram-1.4 kcal/mL oral liquid (Ensure Surgery) 237 ml PO TIDCM Supplement 05/05/22 [History Last Taken Unknown] oxycodone 5 mg tablet 5 mg PO Q4H PRN PRN Pain Score 4-10 7 days #10 tabs 05/05/22 [Rx Last Taken Unknown] Allergy/AdvReac Type Severity Reaction Status Date / Time No Known Allergies Allergy ? ? Verified 05/16/18 08:25 Surgical History?(Updated 05/05/22 @ 19:[address] John Becerril MD) History of transurethral resection of prostate Social History?(Updated 05/05/22 @ 19:[address] John Becerril MD) household members:? none Smoking Status:? Never smoker alcohol intake:? never substance use type:? does not use ROS Constitutional Constitutional: Reports systems reviewed and no addt'l complaints, except as documented Eyes Eyes: Reports systems reviewed and no addt'l complaints, except as documented ENT HEENT: Reports systems reviewed and no addt'l complaints, except as documented Cardiovascular Cardiovascular: Reports systems reviewed and no addt'l complaints, except as documented Respiratory/Chest Respiratory/Chest: Reports systems reviewed and no addt'l complaints, except as documented Gastrointestinal Gastrointestinal: Reports systems reviewed and no addt'l complaints, except as documented Genitourinary Genitourinary: Reports systems reviewed and no addt'l complaints, except as documented Musculoskeletal Musculoskeletal: Reports systems reviewed and no addt'l complaints, except as documented Integumentary Integumentary: Reports other Details: psoriasis Neurologic Neurologic: Reports systems reviewed and no addt'l complaints, except as documen alayna Psychiatric Psychiatric: Reports systems reviewed and no addt'l complaints, except as documented Lab / Micro Data Result Diagrams: 05/08/22 05:05? 05/06/22 05:18? Labs: Laboratory Results - last 24 hr 05/08/22 05:05: Hgb 8.7 L,?Hct 26.7 L I have examined the patient and the H&P has been reviewed. There are no clinical changes since date of exam.
[2022-05-12] MEDS: Pantoprazole Sodium 40 MG Tablet PO (17:53)
[2022-05-12 17:55] VITALS: BP 152/62; PULSE 95
[2022-05-12] MEDS: Nystatin Powder 15gm Bottle 1 APPLIC TOPICAL (21:33)
[2022-05-12] MEDS: Atorvastatin Calcium 20 MG Tablet PO (21:41)
[2022-05-12] MEDS: Mirtazapine 15 MG Tablet 7.5 MG PO (21:41)
[2022-05-13] MEDS: Nystatin Powder 15gm Bottle 1 APPLIC TOPICAL ×2 (04:45→17:12)
[2022-05-13] MEDS: 0.9% Saline Lock 10 ML Syringe IV ×2 (04:51→11:08)
[2022-05-13 04:54] VITALS: BP 101/64; PULSE 87
[2022-05-13] MEDS: Citalopram 10 MG Tablet PO (04:54)
[2022-05-13] MEDS: Metoprolol Tartrate 25 MG Tablet PO ×2 (04:54→17:11)
[2022-05-13] MEDS: Acetaminophen 500 MG Tablet 1000 MG PO ×3 (04:55→21:18)
[2022-05-13] MEDS: Senna/Docusate Sodium 1 Tablet 2 TABLET PO (04:55)
[2022-05-13] MEDS: Pantoprazole Sodium 40 MG Tablet PO ×2 (04:55→17:12)
[2022-05-13 05:48] LABS: Absolute Lymphocyte Count 1.11 X10^3/uL (0.83-4.51); Absolute Neutrophil Count 7.8 X10^3/uL (2.0-7.7); Basophil# 0.03 X10^3/uL; Basophil% 0.3 % (0-1); Eosinophil# 0.32 X10^3/uL; Eosinophils% 3.2 % (0-5); Hematocrit 30.8 % (40-54); Hemoglobin 9.7 g/dL (13.0-16.5); Lymphocyte # 1.11 X10^3/ul (0.83-4.51); Mean Corp Hgb Conc 31.5 g/dL (32-36); Mean Corpuscular Hgb 31.2 pg (27.0-32.0); Mean Platelet Vol. 9.5 fl (6.2-12.0); Monocyte# 0.73 X10^3/uL; Monocyte% 7.2 % (0-10); NRBC Flagged by Analyzer 0 % (0-5); Neutrophil # 7.82 X10^3/uL (2.7-7.7); Neutrophil % 77.5 % (47-70); Platelet Count 299 K/mm3 (150-450); RBC Distribution Width CV 14.6 % (11.6-14.6); RBC Distribution Width SD 50.6 fl (35.1-43.9); Red Blood Count 3.11 M/mm3 (4.6-6.2); White Blood Count 10.1 K/mm3 (4.4-11.0)
[2022-05-13 06:10] LABS: Anion Gap 3 (5-15); BUN 45 mg/dL (7-18); BUN/Creat Ratio 35.2 RATIO (10-20); Calcium,Total 8.7 mg/dL (8.5-10.1); Chloride 111 mmol/L (98-107); Creatinine, Serum 1.28 mg/dL (0.70-1.30); EST Glomerular Filtration Rate 57 mL/min (>60); Est Glom Filt Rate - Afr Amer 69 mL/min (>60); Estimated Creatinine Clearance 41.43 ml/min; Glucose 110 mg/dL (74-106); Potassium 4.4 mmol/L (3.5-5.1); Sodium Level 143 mmol/L (136-145)
[2022-05-13] MEDS: Ensure Plus High Protein 120 ML LIQUID PO ×3 (07:42→17:11)
--- NOTE | 2022-05-13 08:30 | NURSING ---
Fashion Buyer Note; MDS for 05/12/2022 Complete
--- NOTE | 2022-05-13 09:15 | CASEMGMT ---
Social Work IDT met with patient and three children for care plan meeting. Discussed patient's progress in PT/OT/ST/SN. Educated to [facility] insurance with NRD 05/15 and continued stay is not guaranteed with each review. Pts goal is to return home alone with 40 lb dog. However, IDT recommending / care currently if insurance does not allow continued stay for optimal improvement. Educated to options of nonskilled OCCUPATIONAL THERAPIST PER DIEM, [place] and SNF and financial liability. Encouraged family to discuss options and alternate plan to prepare. SW educated to role and ongoing assistance with DC plans. Family expressed understanding and appreciative. Will continue to follow. Venessa Robertson, [employer] GROCERY MERCHANDISER
[2022-05-13] MEDS: Tuberculin,Purif.prot.deriv. 50 TU/ML Vial 0.1 ML ID (10:04)
[2022-05-13] MEDS: Menthol/Lanolin/Calamine/Znox 113 GM Tube 1 APPLIC TOPICAL ×2 (10:05→21:17)
--- NOTE | 2022-05-13 10:36 | CASEMGMT ---
Social Work BIMS () and PHQ-9 (08/31) completed for MDS assessment. Venessa Robertson MSW KNOCKDOWN MAN
[2022-05-13 14:24] VITALS: BP 114/72; PULSE 88; RESP 16; TEMP 36.3; O2SAT 96
[2022-05-13 17:11] VITALS: PULSE 88
[2022-05-13] MEDS: APIXABAN 5 MG TABLET PO (17:11)
--- NOTE | 2022-05-13 18:01 | NURSING ---
R' HAD SMALL NOSE BLEED. PRESSURE APPLIED AND HAS STOPPED. WILL MONITOR.
[2022-05-13 21:11] VITALS: RESP 16
[2022-05-13] MEDS: Mirtazapine 15 MG Tablet 7.5 MG PO (21:19)
[2022-05-13] MEDS: Atorvastatin Calcium 20 MG Tablet PO (21:20)
[2022-05-14] MEDS: Citalopram 10 MG Tablet PO (05:12)
[2022-05-14] MEDS: Acetaminophen 500 MG Tablet 1000 MG PO ×3 (05:12→20:09)
[2022-05-14] MEDS: Senna/Docusate Sodium 1 Tablet 2 TABLET PO ×2 (05:12→17:36)
[2022-05-14] MEDS: Pantoprazole Sodium 40 MG Tablet PO ×2 (05:12→17:36)
[2022-05-14 05:13] VITALS: BP 117/73; PULSE 86
[2022-05-14] MEDS: Metoprolol Tartrate 25 MG Tablet PO ×2 (05:13→17:35)
[2022-05-14] MEDS: APIXABAN 5 MG TABLET PO ×2 (05:14→17:36)
[2022-05-14] MEDS: Nystatin Powder 15gm Bottle 1 APPLIC TOPICAL ×2 (05:17→17:38)
[2022-05-14] MEDS: Ensure Plus High Protein 120 ML LIQUID PO ×3 (08:00→17:34)
[2022-05-14] MEDS: traMADol 50 MG Tablet PO (09:22)
[2022-05-14] MEDS: Menthol/Lanolin/Calamine/Znox 113 GM Tube 1 APPLIC TOPICAL ×2 (09:23→20:10)
[2022-05-14 15:26] VITALS: BP 93/49; PULSE 93; RESP 18; TEMP 36.3; O2SAT 97
--- NOTE | 2022-05-14 15:49 | CHAPLAIN ---
Type of Pastoral Visit ___ Initial Visit _x__ Follow-up Visit ___ On-call Visit ___ General Patient Visit ___ Spiritual Assessment ___ Family Conference ___ Bereavement ___ Rapid Response ___ Code Blue ___ Other (describe below) Pastoral Care Referral From _x__ Patient ___ Family ___ Nurse ___ Physician ___ Juvenile Counselor ___ Ear Machine Operator ___ Other (describe below) Sacrament/Intervention _x__ Active listening ___ Anointing ___ Sikh ___ Bereavement ___ Communion ___ Erin exploration ___ ___ Life review _x__ Prayer ___ Reconciliation ___ Sacrament of Sick _x__ Supportive presence ___ Wedding ___ Other (describe below) Pastoral Comments casual conversation to follow up; pt just hopes to get home and sooner the better; pt speaks of his birthday this week; pt welcomes prayer and presence
[2022-05-14 17:35] VITALS: PULSE 138
[2022-05-14] MEDS: Mirtazapine 15 MG Tablet 7.5 MG PO (20:08)
[2022-05-14] MEDS: Atorvastatin Calcium 20 MG Tablet PO (20:08)
[2022-05-14] MEDS: 0.9% Saline Lock 10 ML Syringe IV (20:12)
[2022-05-15] MEDS: APIXABAN 5 MG TABLET PO ×2 (05:16→17:11)
[2022-05-15] MEDS: Citalopram 10 MG Tablet PO (05:16)
[2022-05-15] MEDS: Pantoprazole Sodium 40 MG Tablet PO ×2 (05:16→17:11)
[2022-05-15] MEDS: Nystatin Powder 15gm Bottle 1 APPLIC TOPICAL (05:17)
[2022-05-15] MEDS: Acetaminophen 500 MG Tablet 1000 MG PO ×3 (05:18→22:14)
[2022-05-15 06:42] VITALS: BP 106/72; PULSE 84
[2022-05-15] MEDS: Metoprolol Tartrate 25 MG Tablet PO ×2 (06:42→17:10)
[2022-05-15] MEDS: Ensure Plus High Protein 120 ML LIQUID PO ×3 (08:20→17:09)
[2022-05-15] MEDS: Menthol/Lanolin/Calamine/Znox 113 GM Tube 1 APPLIC TOPICAL ×2 (08:21→22:13)
[2022-05-15 14:50] VITALS: PULSE 88; RESP 18; O2SAT 97
[2022-05-15 14:51] VITALS: BP 108/70; PULSE 95; RESP 16; TEMP 36.2; O2SAT 98
[2022-05-15 17:10] VITALS: BP 108/70; PULSE 95
[2022-05-15 22:11] VITALS: BP 100/62; PULSE 102
[2022-05-15] MEDS: traMADol 50 MG Tablet PO (22:12)
[2022-05-15] MEDS: Mirtazapine 15 MG Tablet 7.5 MG PO (22:15)
[2022-05-15] MEDS: Atorvastatin Calcium 20 MG Tablet PO (22:15)
[2022-05-16 06:02] VITALS: BP 103/66; PULSE 91
[2022-05-16 06:08] VITALS: PULSE 91
[2022-05-16] MEDS: Citalopram 10 MG Tablet PO (06:08)
[2022-05-16] MEDS: Pantoprazole Sodium 40 MG Tablet PO ×2 (06:08→18:01)
[2022-05-16] MEDS: Acetaminophen 500 MG Tablet 1000 MG PO ×3 (06:08→22:07)
[2022-05-16] MEDS: Nystatin Powder 15gm Bottle 1 APPLIC TOPICAL (06:08)
[2022-05-16] MEDS: APIXABAN 5 MG TABLET PO ×2 (06:08→18:01)
[2022-05-16] MEDS: Metoprolol Tartrate 25 MG Tablet PO ×2 (06:08→18:03)
[2022-05-16] MEDS: Menthol/Lanolin/Calamine/Znox 113 GM Tube 1 APPLIC TOPICAL ×2 (09:19→22:06)
[2022-05-16] MEDS: Ensure Plus High Protein 120 ML LIQUID PO ×3 (09:19→18:03)
[2022-05-16 09:23] VITALS: PULSE 81; O2SAT 97
[2022-05-16 13:42] VITALS: BP 104/64; PULSE 90; RESP 16; TEMP 36.3; O2SAT 98
[2022-05-16 18:03] VITALS: BP 127/70; PULSE 105
[2022-05-16] MEDS: Mirtazapine 15 MG Tablet 7.5 MG PO (22:07)
[2022-05-16] MEDS: Atorvastatin Calcium 20 MG Tablet PO (22:07)
[2022-05-17] MEDS: Acetaminophen 500 MG Tablet 1000 MG PO ×3 (06:00→19:39)
[2022-05-17] MEDS: Pantoprazole Sodium 40 MG Tablet PO ×2 (06:01→17:17)
[2022-05-17] MEDS: Senna/Docusate Sodium 1 Tablet 2 TABLET PO (06:01)
[2022-05-17] MEDS: Citalopram 10 MG Tablet PO (06:01)
[2022-05-17 06:02] VITALS: BP 114/73; PULSE 85
[2022-05-17] MEDS: Metoprolol Tartrate 25 MG Tablet PO ×2 (06:02→17:21)
[2022-05-17] MEDS: APIXABAN 5 MG TABLET PO ×2 (06:02→17:17)
[2022-05-17] MEDS: Ensure Plus High Protein 120 ML LIQUID PO ×3 (08:11→17:17)
[2022-05-17] MEDS: Menthol/Lanolin/Calamine/Znox 113 GM Tube 1 APPLIC TOPICAL ×2 (08:12→19:47)
--- NOTE | 2022-05-17 12:30 | NURSING ---
1135; 13 [place] removed from l hip incision. Pt tolerated well. Incisions well approximated. No redness or drainage noted. Incisions left FINANCIAL PLANNING ASSISTANT.
[2022-05-17] MEDS: oxyCODONE 5 MG Tablet PO (12:58)
[2022-05-17 15:20] VITALS: BP 116/59; PULSE 90; RESP 16; TEMP 36.2; O2SAT 98
[2022-05-17] MEDS: Nystatin Powder 15gm Bottle 1 APPLIC TOPICAL (17:17)
[2022-05-17 17:21] VITALS: BP 92/62; PULSE 102
[2022-05-17] MEDS: Mirtazapine 15 MG Tablet 7.5 MG PO (19:40)
[2022-05-17] MEDS: Atorvastatin Calcium 20 MG Tablet PO (19:41)
[2022-05-17 19:48] VITALS: O2SAT 97
[2022-05-18] MEDS: Pantoprazole Sodium 40 MG Tablet PO ×2 (05:33→17:41)
[2022-05-18] MEDS: Senna/Docusate Sodium 1 Tablet 2 TABLET PO (05:33)
[2022-05-18] MEDS: Citalopram 10 MG Tablet PO (05:33)
[2022-05-18] MEDS: APIXABAN 5 MG TABLET PO ×2 (05:33→17:41)
[2022-05-18] MEDS: Acetaminophen 500 MG Tablet 1000 MG PO ×3 (05:33→22:52)
[2022-05-18 05:35] VITALS: BP 102/62; PULSE 94
[2022-05-18] MEDS: Metoprolol Tartrate 25 MG Tablet PO ×2 (05:35→17:40)
[2022-05-18] MEDS: Nystatin Powder 15gm Bottle 1 APPLIC TOPICAL ×2 (05:39→17:41)
[2022-05-18] MEDS: Ensure Plus High Protein 120 ML LIQUID PO (08:37)
--- NOTE | 2022-05-18 08:52 | MDS.RN ---
Information for the mds was obtained from review of the clinical record, interview of resident, staff, and direct observation of resident's care.
[2022-05-18] MEDS: Menthol/Lanolin/Calamine/Znox 113 GM Tube 1 APPLIC TOPICAL ×2 (09:12→22:51)
[2022-05-18 13:32] VITALS: BP 106/62; PULSE 91; RESP 16; TEMP 36.2; O2SAT 97
--- NOTE | 2022-05-18 14:36 | NURSING ---
Addendum entered by Eber Armstrong 05/18/22 17:02: PT RETURNED @[address] POWERS. NNO AT THIS TIME. FOLLOW UP June. Original Note: PT LEFT BY WHEEL CHAIR TO DR. MANN APPOINTMENT @ 2303. DAUGHTER TRANSPORTING.
[2022-05-18 17:40] VITALS: BP 106/62; PULSE 91
[2022-05-18 22:00] VITALS: PULSE 92; RESP 16; O2SAT 93
[2022-05-18] MEDS: Atorvastatin Calcium 20 MG Tablet PO (22:52)
[2022-05-18] MEDS: Mirtazapine 15 MG Tablet 7.5 MG PO (22:52)
[2022-05-19] MEDS: Citalopram 10 MG Tablet PO (04:40)
[2022-05-19 04:41] VITALS: BP 95/61; PULSE 89
[2022-05-19] MEDS: Pantoprazole Sodium 40 MG Tablet PO ×2 (04:42→17:54)
[2022-05-19] MEDS: Acetaminophen 500 MG Tablet 1000 MG PO ×3 (04:42→19:52)
[2022-05-19] MEDS: APIXABAN 5 MG TABLET PO ×2 (04:42→17:54)
[2022-05-19] MEDS: Senna/Docusate Sodium 1 Tablet 2 TABLET PO (04:42)
[2022-05-19] MEDS: Nystatin Powder 15gm Bottle 1 APPLIC TOPICAL ×2 (04:43→17:54)
[2022-05-19 08:40] VITALS: PULSE 97; RESP 18; O2SAT 98
[2022-05-19] MEDS: Menthol/Lanolin/Calamine/Znox 113 GM Tube 1 APPLIC TOPICAL ×2 (08:53→19:51)
[2022-05-19] MEDS: traMADol 50 MG Tablet PO (09:53)
[2022-05-19 16:00] VITALS: BP 100/75; PULSE 95; RESP 16; TEMP 36.3; O2SAT 98
[2022-05-19] MEDS: Ensure Plus High Protein 120 ML LIQUID PO (17:53)
[2022-05-19 17:55] VITALS: BP 100/75; PULSE 95
[2022-05-19] MEDS: Metoprolol Tartrate 25 MG Tablet PO (17:55)
[2022-05-19] MEDS: Atorvastatin Calcium 20 MG Tablet PO (19:51)
[2022-05-19] MEDS: Mirtazapine 15 MG Tablet 7.5 MG PO (19:51)
[2022-05-20] MEDS: Acetaminophen 500 MG Tablet 1000 MG PO ×3 (05:45→20:52)
[2022-05-20 05:46] VITALS: BP 102/66; PULSE 89
[2022-05-20] MEDS: Pantoprazole Sodium 40 MG Tablet PO ×2 (05:46→17:19)
[2022-05-20] MEDS: Nystatin Powder 15gm Bottle 1 APPLIC TOPICAL ×2 (05:46→17:20)
[2022-05-20] MEDS: Metoprolol Tartrate 25 MG Tablet PO ×2 (05:46→17:18)
[2022-05-20] MEDS: Citalopram 10 MG Tablet PO (05:46)
[2022-05-20] MEDS: APIXABAN 5 MG TABLET PO ×2 (05:46→17:18)
[2022-05-20 06:03] LABS: Absolute Lymphocyte Count 0.81 X10^3/uL (0.83-4.51); Absolute Neutrophil Count 5.8 X10^3/uL (2.0-7.7); Basophil# 0.04 X10^3/uL; Basophil% 0.5 % (0-1); Eosinophil# 0.33 X10^3/uL; Eosinophils% 4.3 % (0-5); Hematocrit 34.7 % (40-54); Hemoglobin 11.2 g/dL (13.0-16.5); Lymphocyte # 0.81 X10^3/ul (0.83-4.51); Lymphocyte % 10.7 % (19-41); Mean Corp Hgb Conc 32.3 g/dL (32-36); Mean Corpuscular Hgb 31.5 pg (27.0-32.0); Mean Corpuscular Volume 97.7 fL (80-94); Mean Platelet Vol. 9.6 fl (6.2-12.0); Monocyte# 0.59 X10^3/uL; Monocyte% 7.8 % (0-10); NRBC Flagged by Analyzer 0 % (0-5); Neutrophil # 5.78 X10^3/uL (2.7-7.7); Neutrophil % 76.2 % (47-70); Platelet Count 311 K/mm3 (150-450); RBC Distribution Width SD 53.9 fl (35.1-43.9); Red Blood Count 3.55 M/mm3 (4.6-6.2); White Blood Count 7.6 K/mm3 (4.4-11.0)
[2022-05-20 06:23] LABS: Anion Gap 5 (5-15); BUN 51 mg/dL (7-18); BUN/Creat Ratio 35.7 RATIO (10-20); Calcium,Total 8.7 mg/dL (8.5-10.1); Chloride 113 mmol/L (98-107); Creatinine, Serum 1.43 mg/dL (0.70-1.30); EST Glomerular Filtration Rate 50 mL/min (>60); Est Glom Filt Rate - Afr Amer 60 mL/min (>60); Estimated Creatinine Clearance 36.54 ml/min; Glucose 94 mg/dL (74-106); Potassium 4.2 mmol/L (3.5-5.1); Sodium Level 145 mmol/L (136-145)
[2022-05-20] MEDS: Ensure Plus High Protein 120 ML LIQUID PO ×3 (07:44→17:18)
[2022-05-20] MEDS: Menthol/Lanolin/Calamine/Znox 113 GM Tube 1 APPLIC TOPICAL ×2 (07:45→20:56)
[2022-05-20] MEDS: traMADol 50 MG Tablet PO (09:42)
[2022-05-20 14:30] VITALS: BP 92/60; PULSE 94; RESP 18; TEMP 36.9; O2SAT 96
[2022-05-20 17:18] VITALS: PULSE 94
[2022-05-20] MEDS: Senna/Docusate Sodium 1 Tablet 2 TABLET PO (17:19)
[2022-05-20] MEDS: Atorvastatin Calcium 20 MG Tablet PO (20:52)
[2022-05-20] MEDS: Mirtazapine 15 MG Tablet 7.5 MG PO (20:52)
[2022-05-21 05:46] VITALS: BP 110/74; PULSE 86
[2022-05-21] MEDS: Metoprolol Tartrate 25 MG Tablet PO ×2 (05:46→16:52)
[2022-05-21] MEDS: Pantoprazole Sodium 40 MG Tablet PO ×2 (05:46→16:53)
[2022-05-21] MEDS: Acetaminophen 500 MG Tablet 1000 MG PO ×3 (05:46→20:21)
[2022-05-21] MEDS: APIXABAN 5 MG TABLET PO ×2 (05:46→16:52)
[2022-05-21] MEDS: Citalopram 10 MG Tablet PO (05:46)
[2022-05-21] MEDS: Nystatin Powder 15gm Bottle 1 APPLIC TOPICAL ×2 (05:46→16:54)
[2022-05-21 06:22] LABS: Anion Gap 7 (5-15); BUN 47 mg/dL (7-18); BUN/Creat Ratio 34.1 RATIO (10-20); Calcium,Total 8.7 mg/dL (8.5-10.1); Chloride 113 mmol/L (98-107); Creatinine, Serum 1.38 mg/dL (0.70-1.30); EST Glomerular Filtration Rate 52 mL/min (>60); Est Glom Filt Rate - Afr Amer 63 mL/min (>60); Estimated Creatinine Clearance 37.87 ml/min; Glucose 95 mg/dL (74-106); Potassium 4.1 mmol/L (3.5-5.1); Sodium Level 145 mmol/L (136-145)
[2022-05-21 11:00] VITALS: PULSE 80; RESP 16; O2SAT 99
[2022-05-21] MEDS: Menthol/Lanolin/Calamine/Znox 113 GM Tube 1 APPLIC TOPICAL ×2 (13:28→20:19)
[2022-05-21 13:31] VITALS: BP 104/57; PULSE 89; RESP 14; TEMP 36.1; O2SAT 97
[2022-05-21 16:48] VITALS: BP 104/69; PULSE 73
[2022-05-21 16:52] VITALS: PULSE 73
[2022-05-21] MEDS: Neomycin/Bacitracin/Polymyxin Opth. Ointment 1 APPLIC RIGHT EYE ×2 (18:10→20:21)
--- NOTE | 2022-05-21 18:23 | NURSING ---
Family concerned with redness to right eye. Outer corner of right eye red, swollen, and painful. Updated Dr. Becerril, order for antibiotic ointment BID.
[2022-05-21] MEDS: oxyCODONE 5 MG Tablet PO (20:18)
[2022-05-21] MEDS: Atorvastatin Calcium 20 MG Tablet PO (20:19)
[2022-05-21] MEDS: Mirtazapine 15 MG Tablet 7.5 MG PO (20:20)
[2022-05-22 05:39] VITALS: BP 113/73; PULSE 87
[2022-05-22] MEDS: Metoprolol Tartrate 25 MG Tablet PO ×2 (05:39→17:38)
[2022-05-22] MEDS: Nystatin Powder 15gm Bottle 1 APPLIC TOPICAL ×2 (05:39→17:40)
[2022-05-22] MEDS: Neomycin/Bacitracin/Polymyxin Opth. Ointment 1 APPLIC RIGHT EYE ×5 (05:40→20:55)
[2022-05-22] MEDS: Acetaminophen 500 MG Tablet 1000 MG PO ×3 (05:40→20:54)
[2022-05-22] MEDS: APIXABAN 5 MG TABLET PO ×2 (05:40→17:36)
[2022-05-22] MEDS: Senna/Docusate Sodium 1 Tablet 2 TABLET PO (05:40)
[2022-05-22] MEDS: Pantoprazole Sodium 40 MG Tablet PO ×2 (05:40→17:38)
[2022-05-22] MEDS: Citalopram 10 MG Tablet PO (05:40)
[2022-05-22] MEDS: Ensure Plus High Protein 120 ML LIQUID PO ×3 (09:45→17:34)
[2022-05-22] MEDS: Menthol/Lanolin/Calamine/Znox 113 GM Tube 1 APPLIC TOPICAL ×2 (09:46→19:55)
[2022-05-22 13:10] VITALS: BP 100/69; PULSE 84; RESP 16; TEMP 36.2; O2SAT 96
[2022-05-22] MEDS: Ciprofloxacin 0.3% 2.5ml Bottle 1 DRP RIGHT EYE ×2 (17:34→20:53)
[2022-05-22 17:38] VITALS: BP 116/71; PULSE 91
[2022-05-22 19:40] VITALS: O2SAT 94
[2022-05-22] MEDS: Mirtazapine 15 MG Tablet 7.5 MG PO (20:54)
[2022-05-22] MEDS: Atorvastatin Calcium 20 MG Tablet PO (20:55)
[2022-05-23] MEDS: Ciprofloxacin 0.3% 2.5ml Bottle 1 DRP RIGHT EYE ×6 (02:34→22:55)
[2022-05-23] MEDS: Citalopram 10 MG Tablet PO (06:16)
[2022-05-23] MEDS: Acetaminophen 500 MG Tablet 1000 MG PO ×3 (06:16→22:51)
[2022-05-23 06:17] VITALS: BP 117/74; PULSE 91
[2022-05-23] MEDS: APIXABAN 5 MG TABLET PO ×2 (06:17→17:49)
[2022-05-23] MEDS: Pantoprazole Sodium 40 MG Tablet PO ×2 (06:17→17:49)
[2022-05-23] MEDS: Nystatin Powder 15gm Bottle 1 APPLIC TOPICAL ×2 (06:17→17:45)
[2022-05-23] MEDS: Metoprolol Tartrate 25 MG Tablet PO ×2 (06:17→17:49)
[2022-05-23] MEDS: Neomycin/Bacitracin/Polymyxin Opth. Ointment 1 APPLIC RIGHT EYE ×5 (06:22→22:56)
[2022-05-23 09:30] VITALS: PULSE 93; RESP 18; O2SAT 97
[2022-05-23] MEDS: Menthol/Lanolin/Calamine/Znox 113 GM Tube 1 APPLIC TOPICAL ×2 (09:34→22:55)
[2022-05-23] MEDS: Ensure Plus High Protein 120 ML LIQUID PO ×2 (11:43→17:45)
[2022-05-23 16:00] VITALS: BP 95/60; PULSE 82; RESP 12; TEMP 36.3; O2SAT 96
[2022-05-23 17:49] VITALS: BP 109/76; PULSE 91
[2022-05-23 17:52] VITALS: BP 109/76; PULSE 91
[2022-05-23] MEDS: traMADol 50 MG Tablet PO (22:54)
[2022-05-23] MEDS: Atorvastatin Calcium 20 MG Tablet PO (22:55)
[2022-05-23] MEDS: Mirtazapine 15 MG Tablet 7.5 MG PO (22:59)
[2022-05-24] MEDS: Ciprofloxacin 0.3% 2.5ml Bottle 1 DRP RIGHT EYE ×6 (02:22→22:56)
[2022-05-24 06:02] VITALS: BP 107/70; PULSE 83
[2022-05-24] MEDS: Metoprolol Tartrate 25 MG Tablet PO ×2 (06:02→17:59)
[2022-05-24] MEDS: Citalopram 10 MG Tablet PO (06:05)
[2022-05-24] MEDS: Pantoprazole Sodium 40 MG Tablet PO ×2 (06:05→17:58)
[2022-05-24] MEDS: Acetaminophen 500 MG Tablet 1000 MG PO ×3 (06:05→22:56)
[2022-05-24] MEDS: APIXABAN 5 MG TABLET PO ×2 (06:05→17:58)
[2022-05-24] MEDS: Nystatin Powder 15gm Bottle 1 APPLIC TOPICAL (06:06)
[2022-05-24] MEDS: Neomycin/Bacitracin/Polymyxin Opth. Ointment 1 APPLIC RIGHT EYE ×5 (06:07→22:56)
[2022-05-24] MEDS: Ensure Plus High Protein 120 ML LIQUID PO ×2 (07:39→11:48)
[2022-05-24] MEDS: Menthol/Lanolin/Calamine/Znox 113 GM Tube 1 APPLIC TOPICAL ×2 (09:14→22:57)
--- NOTE | 2022-05-24 14:17 | NURSING ---
WALKED PT IN [place] PER PT REQUEST. PT DID WELL.
[2022-05-24 15:23] VITALS: BP 91/67; PULSE 80; RESP 16; TEMP 36.3; O2SAT 97
[2022-05-24 17:59] VITALS: BP 107/61; PULSE 89
[2022-05-24 18:01] VITALS: BP 107/61; PULSE 89
[2022-05-24] MEDS: Mirtazapine 15 MG Tablet 7.5 MG PO (22:55)
[2022-05-24] MEDS: Atorvastatin Calcium 20 MG Tablet PO (22:56)
[2022-05-25] MEDS: Ciprofloxacin 0.3% 2.5ml Bottle 1 DRP RIGHT EYE ×6 (02:44→20:18)
[2022-05-25] MEDS: Senna/Docusate Sodium 1 Tablet 2 TABLET PO (06:07)
[2022-05-25 06:08] VITALS: BP 123/73; PULSE 87
[2022-05-25] MEDS: Metoprolol Tartrate 25 MG Tablet PO ×2 (06:08→17:48)
[2022-05-25] MEDS: Citalopram 10 MG Tablet PO (06:08)
[2022-05-25] MEDS: Pantoprazole Sodium 40 MG Tablet PO ×2 (06:08→18:08)
[2022-05-25] MEDS: Acetaminophen 500 MG Tablet 1000 MG PO ×3 (06:08→20:16)
[2022-05-25] MEDS: Neomycin/Bacitracin/Polymyxin Opth. Ointment 1 APPLIC RIGHT EYE ×5 (06:09→20:15)
[2022-05-25] MEDS: APIXABAN 5 MG TABLET PO ×2 (06:09→17:46)
[2022-05-25] MEDS: Nystatin Powder 15gm Bottle 1 APPLIC TOPICAL (06:15)
[2022-05-25] MEDS: Ensure Plus High Protein 120 ML LIQUID PO ×3 (07:40→17:46)
--- NOTE | 2022-05-25 09:48 | CASEMGMT ---
Social Work Received call from dtr, Clara, asking questions about homegoing. Pt will be discharging to her home for 28/12 care. However, dtr explained she does work full-time 6-2 pm, but works from home during the day. SW offered therapy training to dtr and MIRNA. Educated to assistance with toileting and CGA with ambulation, transfers. Dtr expressed understanding. SW to coordinate skilled HHC and any DME needs. Received address as dtr lives in [place]. Goal is to find a HHC that services pt and dtr's area. Dtr requesting hospital bed and 3-in-1 commode. SW to coordinate once DC date received. Dtr appreciative. Will continue to follow. RANDEE Bernard
[2022-05-25] MEDS: Menthol/Lanolin/Calamine/Znox 113 GM Tube 1 APPLIC TOPICAL ×2 (10:57→20:14)
[2022-05-25 14:50] VITALS: BP 91/59; PULSE 79; RESP 16; TEMP 36.2; O2SAT 98
[2022-05-25 17:48] VITALS: BP 137/80; PULSE 105
[2022-05-25] MEDS: Atorvastatin Calcium 20 MG Tablet PO (20:15)
[2022-05-25] MEDS: Mirtazapine 15 MG Tablet 7.5 MG PO (20:16)
[2022-05-26] MEDS: Ciprofloxacin 0.3% 2.5ml Bottle 1 DRP RIGHT EYE ×6 (01:54→19:44)
[2022-05-26 05:30] VITALS: BP 105/70; PULSE 78
[2022-05-26] MEDS: Pantoprazole Sodium 40 MG Tablet PO ×2 (05:30→18:01)
[2022-05-26] MEDS: APIXABAN 5 MG TABLET PO ×2 (05:30→18:02)
[2022-05-26] MEDS: Metoprolol Tartrate 25 MG Tablet PO ×2 (05:30→18:01)
[2022-05-26] MEDS: Acetaminophen 500 MG Tablet 1000 MG PO ×3 (05:30→19:46)
[2022-05-26] MEDS: Senna/Docusate Sodium 1 Tablet 2 TABLET PO (05:30)
[2022-05-26] MEDS: Citalopram 10 MG Tablet PO (05:30)
[2022-05-26] MEDS: Nystatin Powder 15gm Bottle 1 APPLIC TOPICAL ×2 (05:32→18:02)
[2022-05-26] MEDS: Neomycin/Bacitracin/Polymyxin Opth. Ointment 1 APPLIC RIGHT EYE ×5 (05:33→19:45)
[2022-05-26] MEDS: Ensure Plus High Protein 120 ML LIQUID PO ×3 (07:47→18:00)
[2022-05-26] MEDS: traMADol 50 MG Tablet PO (09:19)
[2022-05-26] MEDS: Menthol/Lanolin/Calamine/Znox 113 GM Tube 1 APPLIC TOPICAL ×2 (11:45→19:44)
--- NOTE | 2022-05-26 12:25 | CASEMGMT ---
Addendum entered by Venessa Robertson 05/28/22 11:43: Received call from dtr stating the DME has been delivered and requesting to DC today d/t the weather. Pt was seen by PT today - collaborated with therapy steam fitter supervisor maintenance and Director - agreeable to DC today. [facility] updated with request of new DC date. Updated Dr. Becerril - whom is agreeable to sign HHC orders until pt is scheduled in PCP (juan) office next week. Dtr is aware of pt needing to be seen by PCP for ongoing HHC orders. C SOC 06/02. IDT updated. Plan: DC 05/28 Addendum entered by Venessa Robertson 05/27/22 15:03: [facility] can accept pt. DC paperwork sent via [employer]. Addendum entered by Venessa Robertson 05/27/22 14:35: [facility]. SW sent mass referral to [facility] agencies. Addendum entered by Venessa Robertson 05/26/22 16:26: [facility] is unable to accept pt. Referred to [facility]. Addendum entered by Venessa Robertson 05/26/22 14:04: Spoke with several [facility] agencies and there is not an agency that can service both locations. Updated dtr. Dtr spoke with family and concluded pt with DC to dtr's house in [place] and if he needs to stay with son in different location, another [facility] agency will take over. Dtr also requesting a rollator. Educated to $60 copay. Dtr agreeable. SW made referral to [facility] PT/OT/ST/SN/SW. Referred to [facility] for hospital bed, BSC, rollator. Original Note: Social Work Insurance issued LCD 05/28, DC 05/29. Contacted dtr Clara to update and confirm DC plans. Dtr does plan on having pt DC either to her house or son's house. Family will discuss and make final decision. SW to [facility] that accepts both locations, refer to [facility] for a hospital bed and BSC. Family will transport pt at DC. Plan: DC to dtr or son's house 05/29, [facility] PT/OT/ST/SN, hospital bed, BSC RANDEE BenrardW
[2022-05-26 13:49] VITALS: BP 92/64; PULSE 90; RESP 18; TEMP 36.1; O2SAT 95
[2022-05-26 18:01] VITALS: PULSE 105
[2022-05-26 18:05] VITALS: BP 100/70; PULSE 107; RESP 18; O2SAT 99
--- NOTE | 2022-05-26 19:08 | DS.PCM_ITS ---
Providers Date of Admission: 05/05/22 Primary Care Physician: Dr. John Becerril MD Consultations 05/07/22 16:58 Consult: Gastroenterology Routine Consulting Provider: [facility] Reason for Consult: Esophageal retention on MBS. EMERGENT Consult: No MD Notified: Yes Date Notified: 05/08/22 Time Notified: 11:44 Method of Notification: Answering Service Reason For Visit: LEFT HIP FRACTURE Diagnosis Discharge Diagnosis (1) Dysphagia: Status: Acute Code(s): R13.10 - Dysphagia, unspecified Plan 86 year old male with below past medical history hospitalized for left hip fracture, underwent left hip cephalomedullary nail fixation 05/04/[address] 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 * Debility - PT/OT. * Pain - Tylenol 1000mg q8, Tramadol 50mg q6h prn pain (1-3), Oxycodone 5mg q4h prn pain (4-10). * Bowel - senna/colace 2 tablets bid, MOM 30ml daily prn. * Adult immunization - Administer pneumonia vaccine, covid19 vaccine, flu vaccine as appropriate. * DVT prophylaxis - Eliquis 5mg bid. * Stroke - Hold Aspirin 81mg daily while on Eliquis. * Hyperlipidemia - Atorvastatin 20mg qhs. 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 * Sinus arrhythmia versus atrial fibrillation - I met resident 2 years ago, appeared to be in atrial fibrillation on exam, but EKG at the time showed sinus arrhythmia, I did not start anticoagulation, and kept him on aspirin 81mg daily for stroke prevention. Order EKG to sort out whether he needs chcf anticoagulation or not. EKG shows atrial fibrillation. * Nutrition - Ensure Surgery 237ml po tidcm. Medications at Discharge Home Medications rosuvastatin 10 mg tablet 10 mg PO DAILY Check with primary doctor 05/03/22 acetaminophen 500 mg tablet 1,000 mg PO Q8 Pain 05/05/22 apixaban 5 mg tablet (Eliquis) 5 mg PO BID 30 days #60 tabs 05/26/22 citalopram 10 mg tablet 10 mg PO DAILY 30 days #30 tabs 05/26/22 metoprolol tartrate 25 mg tablet 25 mg PO BID 30 days #60 tabs 05/26/22 mirtazapine 15 mg tablet 7.5 mg PO QHS 30 days #15 tabs 05/26/22 pantoprazole 40 mg tablet,delayed release 40 mg PO BID 30 days #60 tabs 05/26/22 tramadol 50 mg tablet 50 mg PO Q6H PRN PRN Pain Score 1-3 7 days #28 tabs 05/26/22 Hospital Course Operations - (Left hip cephalomedullary nail.) Procedures EGD Summary of Care Provided Minutes Spent on Discharge: 35 Hospital Course: 86 year old male with below past medical history hospitalized for left hip fracture, underwent left hip cephalomedullary nail fixation 05/04/[address] 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 05/12/2022 Dr. Duarte EGD showed Zenker's Diverticulum, tortuous esophagus, severe Schatzki's ring dilated, benign appearing esophageal stenosis treated with argon plasma coagulation, medium sized hiatal hernia. Discharge to daughter's house 05/29/2022, Home Health Care PT/OTST/SN, Hospital Bed, Beside commode. Physical Exam Const alert General Appearance: cooperative HEENT normocephalic Eyes PERRL and EOMs intact bilaterally Neck supple, no JVD and no carotid bruits Resp normal respiratory effort, normal air movement and clear to auscultation isis aterally Cardio regular rate and regular rhythm GI normal to inspection, nondistended, normoactive bowel sounds, non-tender and non-distended Extremity normal capillary refill General Extremity: Negative for edema Skin no rashes or lesions noted General Skin Exam: no breakdown Psych affect normal Appearance: appropriate Weight / BMI Weight Weight: 69.899 kg Body Mass Index (BMI) 23.3 ABG / Lab / Microbiology Data Result Diagrams: 05/20/22 05:17 05/21/22 05:18 Microbiology: Microbiology 05/09/22 15:36 Nasal Secretion SARS-CoV-2 Antigen (Rapid) - Final 05/07/22 05:38 Nasal Secretion SARS-CoV-2 Antigen (Rapid) - Final D/C Instructions Discharge Diet: No restrictions Discharge Activity: Return to Normal Activity, May Shower and Use Walker May resume sexual activity in: No Restrictions Weight Bearing Status: Weight bearing as tolerated Call your doctor if you observe: Fever of 101 or Higher, Inability to urinate, Inability to have a bowel movement, Shortness of breath, Dizziness, Fainting spells, Swelling in the ankles, Chest pain and Uncontrolled pain Additional Instructions: Discharge to daughter's house 05/29/2022, Home Health Care PT/OTST/SN, Hospital Bed, Beside commode. Please Follow Up With: Josh Sales MD (will see GARLAND Lucas) When: As scheduled. Meaningful Use Info Meaningful Use Diagnoses (Choose all that apply): None applicable Discharge Plan Admission Admit Date/Time: 05/05/22 18:46 Primary Reason for Your Visit: Debility. Attending Provider: John Becerril Chi Primary Care Provider: John Becerril Chi Instructions Additional Instructions / Restrictions: Discharge to daughter's house 05/29/2022, Home Health Care PT/OTST/SN, Hospital Bed, Beside commode. Discharge Orders/Prescriptions Prescriptions: New citalopram 10 mg Tablet 10 mg PO DAILY 30 Days Qty: 30 0RF tramadol 50 mg Tablet 50 mg PO Q6H PRN PRN (Reason: Pain Score 1-3) 7 Days Qty: 28 0RF pantoprazole 40 mg Tablet,Delayed Release (Dr/Ec) 40 mg PO BID 30 Days Qty: 60 0RF mirtazapine 15 mg Tablet 7.5 mg PO QHS 30 Days Qty: 15 0RF metoprolol tartrate 25 mg Tablet 25 mg PO BID 30 Days Qty: 60 0RF Eliquis 5 mg Tablet 5 mg PO BID 30 Days Qty: 60 0RF Continued rosuvastatin 10 mg tablet 10 mg PO DAILY Label Comments: TAKE 1 TABLET BY MOUTH ONCE DAILY acetaminophen 500 mg tablet 1,000 mg PO Q8 Discontinued citalopram 10 mg tablet 10 mg PO DAILY Label Comments: TAKE 1 TABLET BY MOUTH ONCE DAILY oxycodone 5 mg Tablet 5 mg PO Q4H PRN PRN (Reason: Pain Score 4-10) 7 Days Qty: 10 0RF aspirin 81 MG tablet,chewable 81 mg PO DAILY@0800 Ensure Surgery 0.08-1.4 gram-kcal/mL liquid 237 ml PO TIDCM Eliquis 5 mg tablet 5 mg PO BID Referrals / Follow Up: Josh Sales MD [Med Staff - Active Staff] - 07/01/22 2:00 pm John Becerril Chi, MD [Primary Care Provider] - (Please schedule appt for 05/29 after DC.) Disposition Disposition (needs filled in before D/C Order can be placed): Home Health Service
[2022-05-26] MEDS: Atorvastatin Calcium 20 MG Tablet PO (19:45)
[2022-05-26] MEDS: Mirtazapine 15 MG Tablet 7.5 MG PO (19:46)
[2022-05-26 19:53] VITALS: PULSE 93; RESP 18; O2SAT 96
[2022-05-27] MEDS: Ciprofloxacin 0.3% 2.5ml Bottle 1 DRP RIGHT EYE ×6 (01:49→22:36)
[2022-05-27] MEDS: Acetaminophen 500 MG Tablet 1000 MG PO ×3 (04:59→22:34)
[2022-05-27] MEDS: Citalopram 10 MG Tablet PO (05:00)
[2022-05-27] MEDS: APIXABAN 5 MG TABLET PO ×2 (05:00→17:50)
[2022-05-27] MEDS: Neomycin/Bacitracin/Polymyxin Opth. Ointment 1 APPLIC RIGHT EYE ×5 (05:01→22:36)
[2022-05-27] MEDS: Nystatin Powder 15gm Bottle 1 APPLIC TOPICAL ×2 (05:01→22:37)
[2022-05-27] MEDS: Pantoprazole Sodium 40 MG Tablet PO ×2 (05:01→17:51)
[2022-05-27 05:02] VITALS: BP 97/59; PULSE 76
[2022-05-27 05:37] LABS: Absolute Lymphocyte Count 0.94 X10^3/uL (0.83-4.51); Absolute Neutrophil Count 4.3 X10^3/uL (2.0-7.7); Basophil# 0.04 X10^3/uL; Basophil% 0.6 % (0-1); Eosinophil# 0.34 X10^3/uL; Eosinophils% 5.5 % (0-5); Hemoglobin 12.4 g/dL (13.0-16.5); Lymphocyte # 0.94 X10^3/ul (0.83-4.51); Lymphocyte % 15.2 % (19-41); Mean Corp Hgb Conc 31.8 g/dL (32-36); Mean Corpuscular Hgb 31.2 pg (27.0-32.0); Mean Platelet Vol. 10.3 fl (6.2-12.0); Monocyte# 0.57 X10^3/uL; Monocyte% 9.2 % (0-10); NRBC Flagged by Analyzer 0 % (0-5); Neutrophil # 4.26 X10^3/uL (2.7-7.7); Neutrophil % 69.2 % (47-70); Platelet Count 205 K/mm3 (150-450); RBC Distribution Width CV 14.5 % (11.6-14.6); RBC Distribution Width SD 51.8 fl (35.1-43.9); Red Blood Count 3.98 M/mm3 (4.6-6.2); White Blood Count 6.2 K/mm3 (4.4-11.0)
[2022-05-27 06:04] LABS: Anion Gap 5 (5-15); BUN 52 mg/dL (7-18); BUN/Creat Ratio 37.4 RATIO (10-20); Calcium,Total 9.3 mg/dL (8.5-10.1); Chloride 111 mmol/L (98-107); Creatinine, Serum 1.39 mg/dL (0.70-1.30); EST Glomerular Filtration Rate 52 mL/min (>60); Est Glom Filt Rate - Afr Amer 62 mL/min (>60); Estimated Creatinine Clearance 37.72 ml/min; Glucose 98 mg/dL (74-106); Sodium Level 142 mmol/L (136-145)
[2022-05-27 09:35] VITALS: PULSE 96; RESP 18; O2SAT 98
[2022-05-27] MEDS: Menthol/Lanolin/Calamine/Znox 113 GM Tube 1 APPLIC TOPICAL ×2 (12:41→22:37)
[2022-05-27 15:56] VITALS: BP 103/72; PULSE 99; RESP 16; TEMP 36.1; O2SAT 95
[2022-05-27 17:49] VITALS: BP 115/78; PULSE 100
[2022-05-27 17:50] VITALS: BP 115/78; PULSE 100
[2022-05-27] MEDS: Metoprolol Tartrate 25 MG Tablet PO (17:50)
[2022-05-27] MEDS: Mirtazapine 15 MG Tablet 7.5 MG PO (22:35)
[2022-05-27] MEDS: Atorvastatin Calcium 20 MG Tablet PO (22:36)
[2022-05-28] MEDS: Ciprofloxacin 0.3% 2.5ml Bottle 1 DRP RIGHT EYE ×4 (02:45→14:14)
--- NOTE | 2022-05-28 03:02 | NURSING ---
Bed changed d/t incontinent episode of urine. Pericare completed. House lotion applied to dry skin to coccyx. Nystatin powder applied to groin. Positioned in bed for comfort. Call light w/ in reach.
[2022-05-28] MEDS: Pantoprazole Sodium 40 MG Tablet PO (05:22)
[2022-05-28] MEDS: APIXABAN 5 MG TABLET PO (05:22)
[2022-05-28] MEDS: Acetaminophen 500 MG Tablet 1000 MG PO ×2 (05:22→14:16)
[2022-05-28 05:23] VITALS: BP 106/66; PULSE 87
[2022-05-28] MEDS: Nystatin Powder 15gm Bottle 1 APPLIC TOPICAL (05:23)
[2022-05-28] MEDS: Citalopram 10 MG Tablet PO (05:23)
[2022-05-28] MEDS: Metoprolol Tartrate 25 MG Tablet PO (05:23)
[2022-05-28] MEDS: Neomycin/Bacitracin/Polymyxin Opth. Ointment 1 APPLIC RIGHT EYE ×3 (05:24→14:15)
[2022-05-28] MEDS: Menthol/Lanolin/Calamine/Znox 113 GM Tube 1 APPLIC TOPICAL (11:14)
[2022-05-28 14:34] VITALS: PULSE 92; RESP 18; O2SAT 97
--- NOTE | 2022-05-28 15:28 | CASEMGMT ---
Social Work BIMS and PHQ-9 completed for MDS assessment. Venessa Robertson, SEALING AND CANCELING MACHINE OPERATOR SORT WORKER
[2022-05-28 16:00] VITALS: BP 101/73; PULSE 97; RESP 20; TEMP 36.2; O2SAT 94
== END 2022-05-28 17:00 | disposition home health service (06) | DRG 561 ==
PROVIDERS: Admitting Provider Family Medicine Geriatric Medicine; PCP Family Medicine Geriatric Medicine; Visit Provider Family Medicine Geriatric Medicine
DX: S72.002D Fracture of unspecified part of neck of left femur, subsequent encounter for closed fracture with routine healing (principal); K22.2 Esophageal obstruction; N18.31 Chronic kidney disease, stage 3a; I48.91 Unspecified atrial fibrillation; E78.5 Hyperlipidemia, unspecified; I12.9 Hypertensive chronic kidney disease with stage 1 through stage 4 chronic kidney disease, or unspecified chronic kidney disease; L40.9 Psoriasis, unspecified; K22.4 Dyskinesia of esophagus; K20.0 Eosinophilic esophagitis; F32.A Depression, unspecified; X58.XXXD Exposure to other specified factors, subsequent encounter; Z79.01 Long term (current) use of anticoagulants; Z79.82 Long term (current) use of aspirin; Z79.899 Other long term (current) drug therapy; R13.12 Dysphagia, oropharyngeal phase
CPT/HCPCS: 36415; 74230; 80048; 85014; 85018; 85025; 87426; 87811; 92507; 92526; 92610; 92611; 93005; 97110; 97116; 97162; 97166; 97530; 97535; 97802; J7120; A4216

== ENCOUNTER 2022-05-12 14:46 | Day surgery (SDC) | payer MEDICARE, SELFPAY ==
[2022-05-11 13:10] VITALS: BP 114/80; PULSE 120; RESP 18; TEMP 36.7; O2SAT 96; BMI 22.1
[2022-05-11] MEDS: Lactated Ringers 1,000 ML 15 ML IV (13:16)
--- NOTE | 2022-05-11 13:23 | EKG12_ITS ---
Test Reason : PRE-OP Blood Pressure : / mmHG Vent. Rate : 121 BPM Atrial Rate : 121 BPM P-R Int : 000 ms QRS Dur : 064 ms QT Int : 298 ms P-R-T Axes : 000 060 038 degrees QTc Int : 423 ms Atrial fibrillation with premature ventricular or aberrantly conducted complexes Abnormal ECG When compared with ECG of 05-MAY-2022 19:28, No significant change was found Confirmed by JOSE WEAVER, PALOMA ([id number]), editor at large NUBIA PALENCIA ([id number]) on 05/13/2022 1:15:18 PM Referred By: John Becerril Confirmed By:PALOMA GARCIA MD
[2022-05-12] MEDS: Lactated Ringers 1,000 ML 15 ML IV (14:15)
--- NOTE | 2022-05-12 15:25 | OP.EGD_ITS ---
Patient Name: Luis Enrique Thomas Procedure Date: 05/12/2022 2:59 PM Date of : 1935 Age: 87 Procedure: Upper GI endoscopy Indications: Dysphagia Providers: Elver Duarte DO Medicines: Monitored Anesthesia Care Patient Profile: This is an 87 year old male. Refer to note in patient chart for documentation of history and physical. Patient has symptoms. Complications: No immediate complications. Procedure: Pre-Anesthesia Assessment: - Prior to the procedure, a History and Physical was performed, and patient medications and allergies were reviewed. The patient is competent. The risks and benefits of the procedure and the sedation options and risks were discussed with the patient. All questions were answered and informed consent was obtained. Patient identification and proposed procedure were verified by the physician in the pre-procedure area. Mental Status Examination: alert and oriented. Airway Examination: normal oropharyngeal airway and neck mobility. Respiratory Examination: clear to auscultation. CV Examination: normal. Prophylactic Antibiotics: The patient does not require prophylactic antibiotics. Prior Anticoagulants: The patient has taken no previous anticoagulant or antiplatelet agents. ASA Grade Assessment: II - A patient with mild systemic disease. After reviewing the risks and benefits, the patient was deemed in satisfactory condition to undergo the procedure. The anesthesia plan was to use monitored anesthesia care (MAC). Immediately prior to administration of medications, the patient was re-assessed for adequacy to receive sedatives. The heart rate, respiratory rate, oxygen saturations, blood pressure, adequacy of pulmonary ventilation, and response to care were monitored throughout the procedure. The physical status of the patient was re-assessed after the procedure. After obtaining informed consent, the endoscope was passed under direct vision. Throughout the procedure, the patient's blood pressure, pulse, and oxygen saturations were monitored continuously. The Endoscope was introduced through the mouth, and advanced to the second part of duodenum. The upper GI endoscopy was accomplished without difficulty. The patient tolerated the procedure well. Scope In: 3:04:46 PM Scope Out: 3:18:52 PM Total Procedure Duration Time 0 hours 14 minutes 6 seconds Findings: A non-bleeding Zenker's diverticulum with a small opening, no impacted food and no stigmata of recent bleeding was found. The examined esophagus was grossly tortuous. Biopsies were obtained from the proximal and distal esophagus with cold forceps for histology of suspected eosinophilic esophagitis. A severe Schatzki ring was found in the lower third of the esophagus. A guidewire was placed and the scope was withdrawn. Dilation was performed with a Savary dilator with no resistance at 48 Fr. The dilation site was examined following endoscope reinsertion and showed moderate improvement in luminal narrowing. Estimated blood loss was minimal. Three benign-appearing, intrinsic stenoses were found 37 to 38 cm from the incisors. These stenoses were severe and. The stenoses were traversed after dilation. Coagulation for hemostasis using argon plasma at 0.3 liters/minute and 20 peters was successful. Estimated blood loss was minimal. A medium-sized hiatal hernia was present. No other significant abnormalities were identified in a careful examination of the stomach. No gross lesions were noted in the first portion of the duodenum. Impression: - Zenker's diverticulum. - Tortuous esophagus. - Severe Schatzki ring. Dilated. - Benign-appearing esophageal stenoses. Treated with argon plasma coagulation (APC). - Medium-sized hiatal hernia. - No gross lesions in the first portion of the duodenum. Recommendation: - Discharge patient to home. - Resume previous diet. - Continue present medications. - Await pathology results. - Repeat upper endoscopy in 3 months for retreatment. Procedure Code(s): --- Professional --- 07461, 59, Esophagogastroduodenoscopy, flexible, transoral; with control of bleeding, any method 76293, 51, Esophagogastroduodenoscopy, flexible, transoral; with insertion of guide wire followed by passage of dilator(s) through esophagus over guide wire 37802, 59, Esophagogastroduodenoscopy, flexible, transoral; with biopsy, single or multiple CPT copyright 2017 [employer]. All rights reserved. The codes documented in this report are preliminary and upon automatic pilot mechanic review may be revised to meet current compliance requirements. Elver Duarte DO 05/12/2022 3:25:17 PM This report has been signed electronically. Number of Addenda: 0 Note Initiated On: 05/12/2022 2:59 PM
[2022-05-12 15:30] VITALS: BP 114/80; BP 94/64; PULSE 99; RESP 19; TEMP 36.4; O2SAT 98
[2022-05-12 15:35] VITALS: BP 114/80; BP 97/65; PULSE 91; RESP 15; O2SAT 95
[2022-05-12 15:40] VITALS: BP 114/80; BP 99/65; PULSE 87; RESP 16; O2SAT 97
[2022-05-12 15:45] VITALS: BP 104/61; BP 114/80; PULSE 101; RESP 16; O2SAT 97
[2022-05-12 16:37] VITALS: BP 114/80
--- NOTE | 2022-05-12 16:45 | SUR.PHASEII ---
spoke with nurse caring for patient in TCU. updated on discharge instructions and all questions answered.
--- NOTE | 2022-05-13 | ESO_PTH ---
PATIENT: OLEG WASSERMAN LOC: EN U#:[id number] AGE/SX: 86/M ROOM: RE05/12/[address]: Dr. Elver Duarte DO : 1935 BED: DIS: 05/12/2022 SPEC #: [id number] RECD: 05/13/22 09:39 STATUS: TERRENCE REQ #: [id number] JAZMIN: 05/13/22 00:[address]: Elver Duarte DEPT: SURGICAL PATHOLOGY RECD BY: Izaiah Romo ENTERED: 05/13/22 09:40 SP TYPE: DEJON KERR DR: Dr. John Becerril MD Tissues: Esophagus, NOS Procedures: Special Stain Group II Surgery Specimen Level IV Alcian Blue/PAS (control) HEADER OPERATION: EGD ([facility]), biopsy PRE-OP DIAGNOSIS: Dysphagia TISSUE SUBMITTED: Esophageal stricture biopsy MICROSCOPIC DIAGNOSIS Esophageal stricture, biopsy: Gastroesophageal junctional mucosa with chronic inflammation. Focal changes of reflux. No evidence of goblet cell metaplasia. See comment. AM:azalea 05/14/2022 COMMENT Alcian blue/PAS stain with matched control supports the above diagnosis. MICROSCOPIC DESCRIPTION Slides are reviewed. GROSS DESCRIPTION Received in fixative is one container labeled with the patient's name and designated esophageal stricture biopsy. The specimen consists of multiple irregular fragments of light dockery soft tissue that in aggregate measure 2 x 1 x 0.1 cm. The specimen is totally submitted in one cassette. / SJ:azalea 05/13/2022 TC:3 CPT: 72499, 73579
== END 2022-05-12 16:56 | disposition home or self-care (01) ==
LOC: EN 14:48 → AC 14:51
PROVIDERS: PCP Family Medicine Geriatric Medicine; Referring Provider Family Medicine Geriatric Medicine; Visit Provider Internal Medicine Gastroenterology
PROC: 0DJ08ZZ Inspection of Upper Intestinal Tract, Via Natural or Artificial Opening Endoscopic (ICD-10-PCS; CPT 43235; principal; 2022-05-12 11:25)
DX: K22.2 Esophageal obstruction (principal); N18.31 Chronic kidney disease, stage 3a; K44.9 Diaphragmatic hernia without obstruction or gangrene; K22.5 Diverticulum of esophagus, acquired; Z86.73 Personal history of transient ischemic attack (TIA), and cerebral infarction without residual deficits
CPT/HCPCS: 43248; 43239; 43255; 88305; 88313; 93005; J7120; C1769; J2405; J3490

== ENCOUNTER → 2022-06-22 | Outpatient (CLI) | payer MEDICARE, SELFPAY ==
--- NOTE | 2022-06-22 14:45 | RAD_ITS ---
EXAM: XR ABDOMEN, 2 VIEWS CLINICAL INDICATION: DIARRHEA TECHNIQUE: Frontal view of the abdomen/pelvis with upright view of the abdomen. This report was created using ipDatatel report generation technology. COMPARISON: Previous abdominal radiographs of 01/09/2020. Previous chest radiograph of 05/03/2022. 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 No acute basilar pulmonary infiltrates are identified. INTRAPERITONEAL SPACE: No free air. GASTROINTESTINAL TRACT: Unremarkable. Non-obstructive. No bowel or stomach distention. ORGANS: Unremarkable as visualized. No organomegaly. No abnormal calcifications. BONES/JOINTS: No acute pathology. Interval placement of fixation devices within the proximal left femur, including an intramedullary bharat. Osseous structures are demineralized. Lower thoracic and lower lumbar degenerative changes are present. SOFT TISSUES: No acute pathology. 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 No radiographic evidence of acute intra-abdominal pathology. Electronically Signed: Dudley Vidal MD at 23:56 EST ,
== END | disposition home or self-care (01) ==
LOC: RAD 14:18
PROVIDERS: PCP Family Medicine Geriatric Medicine; Visit Provider Family Medicine Geriatric Medicine
DX: R19.7 Diarrhea, unspecified (principal)
CPT/HCPCS: 74019

== ENCOUNTER → 2022-06-23 | Outpatient (CLI) | payer MEDICARE, SELFPAY | END | disposition home or self-care (01) | PROVIDERS: PCP Family Medicine Geriatric Medicine; Referring Provider Family Medicine Geriatric Medicine; Visit Provider Family Medicine Geriatric Medicine | DX: R19.7 Diarrhea, unspecified (principal) | CPT/HCPCS: 82274; 83630; 87177; 87209; 87493 ==

== ENCOUNTER → 2022-07-13 | Outpatient (CLI) | payer MEDICARE, SELFPAY ==
[2022-07-13 13:25] LABS: Hematocrit 42.2 % (40-54); Hemoglobin 14.3 g/dL (13.0-16.5); Mean Corp Hgb Conc 33.9 g/dL (32-36); Mean Corpuscular Hgb 30.8 pg (27.0-32.0); Mean Corpuscular Volume 90.9 fL (80-94); Mean Platelet Vol. 10.5 fl (6.2-12.0); Platelet Count 200 K/mm3 (150-450); RBC Distribution Width CV 13.1 % (11.6-14.6); RBC Distribution Width SD 43.1 fl (35.1-43.9); Red Blood Count 4.64 M/mm3 (4.6-6.2); White Blood Count 7.2 K/mm3 (4.4-11.0)
[2022-07-13 13:54] LABS: Albumin, Serum 3.5 g/dL (3.2-5.0); BUN 25 mg/dL (7-18); BUN/Creat Ratio 15.9 RATIO (10-20); Calcium,Total 9.3 mg/dL (8.5-10.1); Chloride 111 mmol/L (98-107); Creatinine, Serum 1.57 mg/dL (0.70-1.30); EST Glomerular Filtration Rate 45 mL/min (>60); Est Glom Filt Rate - Afr Amer 54 mL/min (>60); Glucose 127 mg/dL (74-106); Phosphorus 3.2 mg/dL (2.5-4.9); Potassium 4.1 mmol/L (3.5-5.1); Sodium Level 143 mmol/L (136-145)
== END | disposition home or self-care (01) ==
PROVIDERS: PCP Family Medicine Geriatric Medicine; Visit Provider Internal Medicine Nephrology
DX: N18.31 Chronic kidney disease, stage 3a (principal)
CPT/HCPCS: 36415; 80069; 85027

== ENCOUNTER → 2022-07-17 | Outpatient (CLI) | payer MEDICARE, SELFPAY ==
--- NOTE | 2022-07-17 14:32 | SP.MBSS_ITS ---
Modified Barium Swallow - Patient Information Study Date: 07/17/22 Study Time: 13:00 Direct Billable Minutes: 99 Total Minutes procedure & reportin Diagnosis: Stroke (I63.9), Dysphagia (R13.10) Referring Physician: John Becerril Chi Reason for Referral: Objectively assess swallow function, risk for aspiration, and determine recommendations for least restrictive diet textures and compensatory strategies to improve safety of swallow. Medical History: Pt is a 86-year-old male with PMH including GERD, HTN, A fib, and CVA who presented to [facility] ED 05/03/2022 with L hip fx. 05/04/2022 pt underwent L hip cephalomedullary nail. He was admitted to [facility] TCU 05/05/2022 for rehab prior to discharge home. Pt has ill fitting upper dentures and prefers to eat without them. He reports eating regular textures, they just take more time. He also feels several foods and drinks get ?hung up? in his throat, causing coughing and choking. Most recent experience was with hamburger meat w/ gravy during this hospitalization. He reports at times regurgitating meats. RN ordered ST, who completed BSE 05/06/2022 and recommended Easy to Chew textures / Thin liquids with plan for MBSS 05/07/2022 to further assess concerns for dysphagia. MBSS 05/07/2022 revealed mild-moderate oropharyngeal phase dysphagia and esophageal phase dysphagia recommending Easy to chew textures / thin liquids with use of strategies. GI consulted and EGD was completed 05/12/2023 which revealed Zenker's diverticulum, tortuous esophagus, severe Schatzki ring (Dilated), benign-appearing esophageal stenoses (Treated w/ APC), medium sized hiatal hernia. Pt discharged home 05/28/2023 tolerating Easy to chew textures / thin liquids with use of strategies. He has been participating in continued ST in [facility] for continued oropharyngeal strengthening. He has returned for repeat MBSS. No reports of illness since discharge, good adherence to strategies and exercise program per pt and pt's son, Koby. Koby also reported no concerns for difficulty tolerating diet, and pt mentioned continued need for softer meats. Current Diet Ordered: Easy to Chew w/ Soft meats / Thin liquids Dentition: WNL - Dentures Mental Status: WNL - Able to follow commands for the evaluation Respiratory Status: Oxygenating on Room Air - Penetration-Aspiration Scale Penetration-Aspiration Scale: OBJECTIVE ASSESSMENT OF SWALLOW FUNCTION (QUANTITATIVE ? PER TRIAL): PENETRATION / ASPIRATION SCALE (VIDES): 1 = does not enter airway 2 = enters airway/above vocal folds/ejected 3 = enters airway/above vocal folds/not ejected 4 = enters airway/contacts vocal folds/ejected 5 = enters airway/contacts vocal folds/not ejected 6 = enters airway/below vocal folds/ejected 7 = enters airway/below vocal folds/not ejected despite effort 8 = enters airway/below vocal folds/no effort VIDEOFLOROSCOPIC SCALE SCORE (VIDES): Grade I = aspiration of material that has penetrated into the laryngeal vestibule, intact cough reflex Grade II = aspiration < 10 % of the bolus, intact cough reflex Grade III = aspiration of < 10 % of the bolus, reduced cough reflex or aspiration of > 10 % of the bolus, intact cough reflex Grade IV = aspiration of > 10 % of the bolus, reduced cough reflex - Penetration-Aspiration Scale Score Thin Liquid via teaspoon Result: 8= enters airway/below vocal folds/no effort Thin Liquid via teaspoon Trial 2 Result: 8= enters airway/below vocal folds/no effort Thin Liquid via small single sip from cup Effortful swallow Result: 2= enter airway/above vocal folds/ejected [place] Thick Liquid via small single sip from cup Result: 2= enter airway/above vocal folds/ejected Pudding via teaspoon with esophageal screen Result: 1= does not enter airway 1/2 Cookie Result: 1= does not enter airway - Slightly increased contrast observed on the vocal folds at the start of the trial, likely due to laryngeal penetration of residues of previous trials. Comment: Cued cough and re-swallow to clear contrast from the laryngeal vestibule. Thin Liquid via small single sip from cup Effortful swallow Trial 2 Result: 5= enters airways/contacts vocal folds/not ejected - No laryngeal penetration on the initial swallow, trace contrast penetrated to the vocal folds after the swallow Comment: BLOW MACHINE TENDER STARCH SPRAYING cued cough and re-swallow to effectively clear the laryngeal vestibule - Oral Phase Labial Seal: No Labial Escape Tongue Control During Bolus Hold: Posterior escape of less than half of bolus Bolus Preparation/Mastication: Disorganized chewing/mashing with solid pieces of bolus unchewed Bolus Transport/Lingual Motion: Delayed initiation of tongue motion Oral Residue: Residue collection on oral structures - piecemeal pudding - Pharyngeal Phase Initiation of Pharyngeal Swallow: Bolus head at posterior laryngeal surgace of epiglottis Soft Palate Elevation: No bolus between soft palate and pharyngeal wall Laryngeal Elevation: Partial superior movement thyroid cart/partial apprx aryt- epig petiole Anterior Hyoid Excursion: Partial anterior movement Epiglottic Movement: Partial inversion Pharyngeal Stripping Wave: Present - diminished Pharyngoesophageal Segment Opening: Parital distension and partial duration; parital obstruction of flow Tongue Base Retraction: Wide column of contrast between tongue base & post. pharyngeal wall Pharyngeal Residue: Collection of residue within or on pharyngeal structures - Esophageal Phase Esophageal Clearance: Esophageal retention w/ retrograde flow below pharyn goesophageal seg. - slowed, much improved clearance of pudding through LES as compared to previous study - Treatment Strategies Effects of treatment strategies attemped:: Effortful swallow = somewhat effective. Cough and re-swallow = effective. - Diagnosis/Impression Diagnosis: Moderate oropharyngeal phase dysphagia (R13.12) Impression: The oral phase is primarily marked by... -Decreased bolus control with <1/2 of the bolus spilling posteriorly to the posterior surface of the epiglottis seen with thin liquids. One trial of thin by tsp was seen spilling to the laryngeal vestibule prior to swallow onset. -Delayed tongue motion for A-P transport. -Piecemeal deglutition of pudding, pt cleared contrast in the oral cavity with independent use of a second swallow. -Prolonged mastication of cookie trial with small pieces of cookie appearing un- chewed in the pharynx during the swallow. The pharyngeal phase is primarily marked by... -Decreased airway closure during the swallow due to mildly decreased anterior hyoid excursion, partial epiglottic inversion, and mildly decreased laryngeal elevation. -Moderately decreased tongue base retraction, mildly decreased UES opening/duration, and mildly decreased pharyngeal stripping wave with resulting mild-moderate pharyngeal residues after the swallow. Increased pharyngeal residues with thicker viscosities. -SILENT aspiration of thin liquids by tsp. Effortful swallow was effective in decreasing amount of laryngeal penetration of thin liquids to trace. The patient did experience laryngeal penetration of thin liquid residue after the swallow, which cleared with cued cough and re-swallow. - Recommendations Diet: Thin Liquids - Soft and Bite Size textures (IDDSI Level 6) w/ Minced and Moist Meats (IDDSI Level 5) Compensatory Strategies: Small Bites, Small Sips - Effortful/Hard Swallows on every sip, Cough and re-swallow every few sips, Slow Rate, Alternate bites/solids and sips/liquids, Sitting upright, Remain sitting upright for 30 minutes after PO intake Supervision: Assist as needed - Supervision as needed to ensure use of strategies Recommend Repeat Modified Barium Swallow: Yes - Repeat MBSS if concerns for worsening s/s of aspiration or worsening pulmonary status. Need for Skilled Speech Therapy Services: Yes Comment: Will recommend continued HH ST. Would strongly recommend continuation of oropharyngeal exercise program to promote improved pharyngeal contraction, laryngeal elevation, tongue base retraction, and UES opening/duration (Effortful swallows, CTAR, Chen, Cece, Effortful breath hold and swallow). The patient did present with SILENT aspiration of thin liquids without use of effortful swallows. If concerns for poor diet tolerance with meals, poor adherence to strategies to decrease risk for aspiration (especially effortful swallows with cough and re-swallow), or worsening respiratory status, would consider diet downgrade to nectar/mildly thick liquids. Education Completed: 1. Described result of evaluation., 2. Pt understands evaluation & agrees with goals and treatment plan., 4. Family/caregivers understand evaluation & agree w/ goals & tx plan., 7. Pt requires further education on strategies & risks. - Status Active ST Patient: Active - Contact Information [facility] Speech Therapy:: Nora Yepez M.A. [facility]-BLOW MACHINE TENDER STARCH SPRAYING Speech-Language Pathologist [facility] [address] [place] [address] [email or web address] [phone] 07/17/22 14:48
== END | disposition home or self-care (01) ==
LOC: RAD 12:42
PROVIDERS: PCP Family Medicine Geriatric Medicine; Referring Provider Family Medicine Geriatric Medicine; Visit Provider Family Medicine Geriatric Medicine
DX: R13.10 Dysphagia, unspecified (principal)
CPT/HCPCS: 74230; 92611

== ENCOUNTER → 2022-07-22 | Outpatient (CLI) | payer MEDICARE, SELFPAY ==
[2022-07-22 17:43] LABS: Absolute Lymphocyte Count 1.11 X10^3/uL (0.83-4.51); Absolute Neutrophil Count 5.3 X10^3/uL (2.0-7.7); Basophil# 0.04 X10^3/uL; Basophil% 0.5 % (0-1); Eosinophil# 0.15 X10^3/uL; Eosinophils% 2.1 % (0-5); Hematocrit 43.9 % (40-54); Hemoglobin 14.8 g/dL (13.0-16.5); Lymphocyte # 1.11 X10^3/ul (0.83-4.51); Lymphocyte % 15.2 % (19-41); Mean Corp Hgb Conc 33.7 g/dL (32-36); Mean Corpuscular Volume 91.8 fL (80-94); Monocyte# 0.68 X10^3/uL; Monocyte% 9.3 % (0-10); NRBC Flagged by Analyzer 0 % (0-5); Neutrophil # 5.31 X10^3/uL (2.7-7.7); Neutrophil % 72.6 % (47-70); Platelet Count 188 K/mm3 (150-450); RBC Distribution Width CV 13.1 % (11.6-14.6); RBC Distribution Width SD 43.8 fl (35.1-43.9); Red Blood Count 4.78 M/mm3 (4.6-6.2); White Blood Count 7.3 K/mm3 (4.4-11.0)
[2022-07-22 18:23] LABS: AST(SGOT) 12 U/L (15-37); Alanine Aminotransfer ALT/SGPT 14 U/L (16-61); Albumin, Serum 3.5 g/dL (3.2-5.0); Alkaline Phosphatase 119 U/L (45-117); Anion Gap 7 (5-15); BUN 29 mg/dL (7-18); BUN/Creat Ratio 19.2 RATIO (10-20); Calcium,Total 9.2 mg/dL (8.5-10.1); Chloride 108 mmol/L (98-107); Creatinine, Serum 1.51 mg/dL (0.70-1.30); EST Glomerular Filtration Rate 47 mL/min (>60); Est Glom Filt Rate - Afr Amer 57 mL/min (>60); Globulin 3.4 g/dL (2.2-4.2); Glucose 133 mg/dL (74-106); Potassium 4.3 mmol/L (3.5-5.1); Protein, Total 6.9 g/dL (6.4-8.2); Sodium Level 142 mmol/L (136-145); Thyroid Stim Hormone (TSH) 3.44 uIU/mL (0.358-3.74)
[2022-07-22 18:57] LABS: Vitamin D,25 Hydroxy 35.6 ng/mL
== END | disposition home or self-care (01) ==
LOC: POLAB3 13:58
PROVIDERS: PCP Family Medicine Geriatric Medicine; Visit Provider Family Medicine Geriatric Medicine
DX: I10 Essential (primary) hypertension (principal); E55.9 Vitamin D deficiency, unspecified
CPT/HCPCS: 36415; 80053; 82306; 84443; 85025

== ENCOUNTER → 2022-10-21 | Outpatient (CLI) | payer MEDICARE, SELFPAY ==
[2022-10-21 10:41] LABS: Absolute Lymphocyte Count 1.06 X10^3/uL (0.83-4.51); Absolute Neutrophil Count 6.4 X10^3/uL (2.0-7.7); Basophil# 0.07 X10^3/uL; Basophil% 0.8 % (0-1); Eosinophil# 0.21 X10^3/uL; Eosinophils% 2.5 % (0-5); Hematocrit 46.2 % (40-54); Hemoglobin 15.9 g/dL (13.0-16.5); Lymphocyte # 1.06 X10^3/ul (0.83-4.51); Lymphocyte % 12.7 % (19-41); Mean Corp Hgb Conc 34.4 g/dL (32-36); Mean Corpuscular Hgb 31.7 pg (27.0-32.0); Mean Platelet Vol. 10.8 fl (6.2-12.0); Monocyte# 0.61 X10^3/uL; Monocyte% 7.3 % (0-10); NRBC Flagged by Analyzer 0 % (0-5); Neutrophil # 6.35 X10^3/uL (2.7-7.7); Neutrophil % 76.5 % (47-70); Platelet Count 188 K/mm3 (150-450); RBC Distribution Width CV 13.5 % (11.6-14.6); Red Blood Count 5.02 M/mm3 (4.6-6.2); White Blood Count 8.3 K/mm3 (4.4-11.0)
[2022-10-21 11:18] LABS: Vitamin D,25 Hydroxy 37.2 ng/mL
[2022-10-21 11:26] LABS: ALB/GLOB Ratio 1.2 RATIO (0.9-2.4); AST(SGOT) 12 U/L (15-37); Alanine Aminotransfer ALT/SGPT 22 U/L (16-61); Albumin, Serum 3.6 g/dL (3.2-5.0); Alkaline Phosphatase 159 U/L (45-117); Anion Gap 7 (5-15); BUN 25 mg/dL (7-18); BUN/Creat Ratio 16.9 RATIO (10-20); Calcium,Total 8.8 mg/dL (8.5-10.1); Chloride 111 mmol/L (98-107); Creatinine, Serum 1.48 mg/dL (0.70-1.30); EST Glomerular Filtration Rate 48 mL/min (>60); Est Glom Filt Rate - Afr Amer 58 mL/min (>60); Glucose 108 mg/dL (74-106); Protein, Total 6.6 g/dL (6.4-8.2); Sodium Level 144 mmol/L (136-145); Thyroid Stim Hormone (TSH) 2.49 uIU/mL (0.358-3.74)
== END | disposition home or self-care (01) ==
LOC: POLAB3 09:31
PROVIDERS: PCP Family Medicine Geriatric Medicine; Visit Provider Family Medicine Geriatric Medicine
DX: I10 Essential (primary) hypertension (principal); E55.9 Vitamin D deficiency, unspecified
CPT/HCPCS: 36415; 80053; 82306; 84443; 85025

== ENCOUNTER → 2023-01-20 | Outpatient (CLI) | payer MEDICARE, SELFPAY ==
[2023-01-20 11:19] LABS: Absolute Lymphocyte Count 1.02 X10^3/uL (0.83-4.51); Basophil# 0.05 X10^3/uL; Basophil% 0.6 % (0-1); Eosinophil# 0.25 X10^3/uL; Eosinophils% 3.1 % (0-5); Hematocrit 48.5 % (40-54); Hemoglobin 16.1 g/dL (13.0-16.5); Lymphocyte # 1.02 X10^3/ul (0.83-4.51); Lymphocyte % 12.8 % (19-41); Mean Corp Hgb Conc 33.2 g/dL (32-36); Mean Corpuscular Hgb 31.1 pg (27.0-32.0); Mean Corpuscular Volume 93.6 fL (80-94); Mean Platelet Vol. 10.6 fl (6.2-12.0); Monocyte# 0.67 X10^3/uL; Monocyte% 8.4 % (0-10); NRBC Flagged by Analyzer 0 % (0-5); Neutrophil # 5.96 X10^3/uL (2.7-7.7); Neutrophil % 74.7 % (47-70); Platelet Count 192 K/mm3 (150-450); RBC Distribution Width CV 12.9 % (11.6-14.6); RBC Distribution Width SD 43.6 fl (35.1-43.9); Red Blood Count 5.18 M/mm3 (4.6-6.2)
[2023-01-20 11:34] LABS: Vitamin D,25 Hydroxy 65.9 ng/mL
[2023-01-20 11:46] LABS: AST(SGOT) 14 U/L (15-37); Alanine Aminotransfer ALT/SGPT 15 U/L (16-61); Albumin, Serum 3.4 g/dL (3.2-5.0); Alkaline Phosphatase 168 U/L (45-117); Anion Gap 3 (5-15); BUN 29 mg/dL (7-18); BUN/Creat Ratio 20.7 RATIO (10-20); Calcium,Total 8.9 mg/dL (8.5-10.1); Chloride 110 mmol/L (98-107); EST Glomerular Filtration Rate 51 mL/min (>60); Est Glom Filt Rate - Afr Amer 62 mL/min (>60); Globulin 3.4 g/dL (2.2-4.2); Glucose 98 mg/dL (74-106); Potassium 4.2 mmol/L (3.5-5.1); Protein, Total 6.8 g/dL (6.4-8.2); Sodium Level 141 mmol/L (136-145); Thyroid Stim Hormone (TSH) 2.62 uIU/mL (0.358-3.74)
== END | disposition home or self-care (01) ==
LOC: POLAB3 09:16
PROVIDERS: PCP Family Medicine Geriatric Medicine; Visit Provider Family Medicine Geriatric Medicine
DX: I10 Essential (primary) hypertension (principal); E55.9 Vitamin D deficiency, unspecified
CPT/HCPCS: 36415; 80053; 82306; 84443; 85025

== ENCOUNTER → 2023-07-21 | Outpatient (CLI) | payer MEDICARE, SELFPAY ==
--- OUTSIDE RECORDS SUMMARY | 2023-07-21 12:10 | XMS RPT_ITS | CCD ---
Author Name Unknown Address [address] [place] [address] Organization [facility] Care Team Providers Care Automation Architect Name Role Phone Dr. John BecerrilDexter Primary Care Unavailable DO George Pelletier Attending Unavailab le Problems Problem Classification Problem Date Documented Date Episodic/Chronic Cardiac dysrhythmias (1 source) Unspecified atrial fibrillation; Translations: [Unspecified atrial fibrillation] Onset: 2 Chronic E Codes: Adverse effects of medical drugs (1 source) Adverse effect of benzodiazepines, initial encounter; Translations: [Adverse effect of benzodiazepines, initial encounter] Onset: 2 Episodic E Codes: Fall (1 source) Fall on same level from slipping, tripping and stumbling with subsequent striking against unspecified object, initial encounter; Translations: [Fall same lev from slip/trip w strike agnst unsp obj, init] Onset: 2 Episodic Fracture of neck of femur (hip) (1 source) Displaced intertrochanteric fracture of left femur, initial encounter for closed fracture; Translations: [Displaced intertrochanteric fracture of left femur, init] Onset: 2 Episodic Late effects of cerebrovascular disease (1 source) Unspecified sequelae of cerebral infarction; Translations: [Unspecified sequelae of cerebral infarction] Onset: 2 Chronic Other aftercare (1 source) group home (current) use of aspirin; Translations: [medical clerk (current) use of aspirin] Onset: 2 Episodic Other connective tissue disease (1 source) Cramp and spasm; Translations: [Cramp and spasm] Onset: 2 Episodic Other non-traumatic joint disorders (1 source) Pain in left hip; Translations: [Pain in left hip] Onset: 2 Episodic Residual codes; unclassified (1 source) Altered mental status, unspecified; Translations: [Altered mental status, unspecified] Onset: 2 Episodic Unclassified (1 source) Contact with and (suspected) exposure to COVID-19; Translations: [Contact with and (suspected) exposure to COVID-19] Onset: 2 Results Test Name Value Interpretation Reference Range Facil ity Encounters Encounter Date Encounter Type Care Provider Facility Start: 05-03-2022 End: 05-03-2022 Emergency department patient visit Dr. Chely Becerril Facility:[id number] Payers Date Payer Category Payer Unknown [id number] Medicare [id number] Summary Purpose Family History No Family History Records Found Advance Directives No Advanced Directives Records Found Additional Source Comments (unrecognized sect ion and content) No Status Records Found INFORMATION SOURCE (unrecogn ized section and content) FOR RECORDS PERTAINING TO PATIENTS WHO ARE OR HAVE BEEN ENROLLED IN A CHEMICAL DEPENDENCY/SUBSTANCEABUSE PROGRAM, SOME INFORMATION MAY BE OMITTED. This clinical summary was aggregated from multiple sources. Caution should be exercised in using it in the provision of clinical care. This summary normalizes information from multiple sources, and as a consequence, information in this document may materially change the coding, format and clinical context of patient data. In addition, data may be omitted in some cases. CLINICAL DECISIONS SHOULD BE BASED ON THE PRIMARY CLINICAL RECORDS. [facility]. provides no warranty or guarantee of the accuracy or completeness of information in this document.
[2023-07-21 12:38] LABS: Absolute Lymphocyte Count 1.27 X10^3/uL (0.83-4.51); Absolute Neutrophil Count 6.5 X10^3/uL (2.0-7.7); Basophil# 0.06 X10^3/uL; Basophil% 0.7 % (0-1); Eosinophil# 0.29 X10^3/uL; Eosinophils% 3.2 % (0-5); Hematocrit 49.7 % (40-54); Hemoglobin 16.9 g/dL (13.0-16.5); Lymphocyte # 1.27 X10^3/ul (0.83-4.51); Lymphocyte % 14.1 % (19-41); Mean Corpuscular Hgb 30.7 pg (27.0-32.0); Mean Corpuscular Volume 90.4 fL (80-94); Mean Platelet Vol. 10.5 fl (6.2-12.0); Monocyte# 0.92 X10^3/uL; Monocyte% 10.2 % (0-10); NRBC Flagged by Analyzer 0 % (0-5); Neutrophil # 6.45 X10^3/uL (2.7-7.7); Neutrophil % 71.4 % (47-70); Platelet Count 195 K/mm3 (150-450); RBC Distribution Width SD 42.8 fl (35.1-43.9)
[2023-07-21 13:02] LABS: Vitamin D,25 Hydroxy 58.3 ng/mL
[2023-07-21 13:20] LABS: AST(SGOT) 12 U/L (15-37); Alanine Aminotransfer ALT/SGPT 14 U/L (16-61); Albumin, Serum 3.6 g/dL (3.2-5.0); Alkaline Phosphatase 149 U/L (45-117); Anion Gap 5 (5-15); BUN 25 mg/dL (7-18); BUN/Creat Ratio 15.6 RATIO (10-20); Calcium,Total 9.4 mg/dL (8.5-10.1); Chloride 110 mmol/L (98-107); EST Glomerular Filtration Rate 44 mL/min (>60); Est Glom Filt Rate - Afr Amer 53 mL/min (>60); Globulin 3.5 g/dL (2.2-4.2); Glucose 95 mg/dL (74-106); Potassium 4.1 mmol/L (3.5-5.1); Protein, Total 7.1 g/dL (6.4-8.2); Sodium Level 143 mmol/L (136-145); Thyroid Stim Hormone (TSH) 2.46 uIU/mL (0.358-3.74)
== END | disposition home or self-care (01) ==
LOC: LAB 11:26
PROVIDERS: PCP Family Medicine Geriatric Medicine; Referring Provider Family Medicine Geriatric Medicine; Visit Provider Family Medicine Geriatric Medicine
DX: I10 Essential (primary) hypertension (principal); E55.9 Vitamin D deficiency, unspecified
CPT/HCPCS: 36415; 80053; 82306; 84443; 85025

== ENCOUNTER → 2024-01-24 | Outpatient (CLI) | payer MEDICARE, SELFPAY ==
[2024-01-24 10:23] LABS: Vitamin D,25 Hydroxy 52.7 ng/mL
[2024-01-24 10:30] LABS: Absolute Neutrophil Count 6.2 X10^3/uL (2.0-7.7); Basophil# 0.06 X10^3/uL; Basophil% 0.8 % (0-1); Eosinophil# 0.15 X10^3/uL; Eosinophils% 1.9 % (0-5); Hematocrit 47.8 % (40-54); Hemoglobin 16.3 g/dL (13.0-16.5); Lymphocyte % 10.2 % (19-41); Mean Corp Hgb Conc 34.1 g/dL (32-36); Mean Corpuscular Hgb 31.7 pg (27.0-32.0); Mean Corpuscular Volume 92.8 fL (80-94); Mean Platelet Vol. 10.7 fl (6.2-12.0); Monocyte# 0.59 X10^3/uL; Monocyte% 7.5 % (0-10); NRBC Flagged by Analyzer 0 % (0-5); Neutrophil # 6.21 X10^3/uL (2.7-7.7); Neutrophil % 79.3 % (47-70); Platelet Count 159 K/mm3 (150-450); RBC Distribution Width CV 13.4 % (11.6-14.6); RBC Distribution Width SD 46.3 fl (35.1-43.9); Red Blood Count 5.15 M/mm3 (4.6-6.2); White Blood Count 7.8 K/mm3 (4.4-11.0)
[2024-01-24 10:36] LABS: AST(SGOT) 11 U/L (15-37); Alanine Aminotransfer ALT/SGPT 12 U/L (16-61); Albumin, Serum 3.4 g/dL (3.2-5.0); Alkaline Phosphatase 129 U/L (45-117); Anion Gap 4 (5-15); BUN 22 mg/dL (7-18); BUN/Creat Ratio 14.5 RATIO (10-20); Calcium,Total 8.9 mg/dL (8.5-10.1); Chloride 111 mmol/L (98-107); Cholesterol 102 mg/dL (200); Creatinine, Serum 1.52 mg/dL (0.70-1.30); EST Glomerular Filtration Rate 46 mL/min (>60); Est Glom Filt Rate - Afr Amer 56 mL/min (>60); Globulin 3.4 g/dL (2.2-4.2); Glucose 90 mg/dL (74-106); High Density Lipoprotein 43 mg/dL; Potassium 3.9 mmol/L (3.5-5.1); Protein, Total 6.8 g/dL (6.4-8.2); Sodium Level 142 mmol/L (136-145); Triglycerides 97 mg/dL; Very Low Density Lipoprotein 19 mg/dL (5-40)
== END | disposition home or self-care (01) ==
LOC: POLAB3 09:16
PROVIDERS: PCP Family Medicine Geriatric Medicine; Visit Provider Family Medicine Geriatric Medicine
DX: I10 Essential (primary) hypertension (principal); E55.9 Vitamin D deficiency, unspecified; E78.5 Hyperlipidemia, unspecified
CPT/HCPCS: 36415; 80053; 80061; 82306; 84443; 85025

== ENCOUNTER → 2024-07-21 | Outpatient (CLI) | payer MEDICARE, SELFPAY ==
[2024-07-21 10:01] LABS: Absolute Lymphocyte Count 1.13 X10^3/uL (0.83-4.51); Absolute Neutrophil Count 7.2 X10^3/uL (2.0-7.7); Basophil# 0.06 X10^3/uL; Basophil% 0.6 % (0-1); Eosinophil# 0.31 X10^3/uL; Eosinophils% 3.3 % (0-5); Hematocrit 49.8 % (40-54); Hemoglobin 16.5 g/dL (13.0-16.5); Lymphocyte # 1.13 X10^3/ul (0.83-4.51); Mean Corp Hgb Conc 33.1 g/dL (32-36); Mean Corpuscular Hgb 30.1 pg (27.0-32.0); Mean Corpuscular Volume 90.9 fL (80-94); Mean Platelet Vol. 9.6 fl (6.2-12.0); Monocyte# 0.73 X10^3/uL; Monocyte% 7.7 % (0-10); NRBC Flagged by Analyzer 0 % (0-5); Neutrophil # 7.18 X10^3/uL (2.7-7.7); Neutrophil % 76.1 % (47-70); Platelet Count 187 K/mm3 (150-450); RBC Distribution Width CV 13.1 % (11.6-14.6); RBC Distribution Width SD 43.7 fl (35.1-43.9); Red Blood Count 5.48 M/mm3 (4.6-6.2); White Blood Count 9.4 K/mm3 (4.4-11.0)
[2024-07-21 10:20] LABS: Vitamin D,25 Hydroxy 50.5 ng/mL
[2024-07-21 10:27] LABS: ALB/GLOB Ratio 0.9 RATIO (0.9-2.4); AST(SGOT) 11 U/L (15-37); Alanine Aminotransfer ALT/SGPT 10 U/L (16-61); Albumin, Serum 3.4 g/dL (3.2-5.0); Alkaline Phosphatase 128 U/L (45-117); Anion Gap 4 (5-15); BUN 22 mg/dL (7-18); BUN/Creat Ratio 13.9 RATIO (10-20); Calcium,Total 9.2 mg/dL (8.5-10.1); Chloride 109 mmol/L (98-107); Cholesterol 137 mg/dL (200); Creatinine, Serum 1.58 mg/dL (0.70-1.30); EST Glomerular Filtration Rate 44 mL/min (>60); Est Glom Filt Rate - Afr Amer 54 mL/min (>60); Globulin 3.6 g/dL (2.2-4.2); Glucose 95 mg/dL (74-106); High Density Lipoprotein 49 mg/dL; Potassium 4.2 mmol/L (3.5-5.1); Sodium Level 142 mmol/L (136-145); Triglycerides 123 mg/dL; Very Low Density Lipoprotein 25 mg/dL (5-40)
== END | disposition home or self-care (01) ==
LOC: LAB 09:48
PROVIDERS: PCP Family Medicine Geriatric Medicine; Referring Provider Family Medicine Geriatric Medicine; Visit Provider Family Medicine Geriatric Medicine
DX: I10 Essential (primary) hypertension (principal); E78.5 Hyperlipidemia, unspecified; E55.9 Vitamin D deficiency, unspecified
CPT/HCPCS: 36415; 80053; 80061; 82306; 84443; 85025

== ENCOUNTER → 2024-08-03 | Outpatient (CLI) | payer MEDICARE, SELFPAY ==
--- NOTE | 2024-08-03 11:25 | CT_ITS ---
EXAM: BRAIN/HEAD WITHOUT CONTRAST CLINICAL HISTORY: Encephalopathy. COMPARISON: None. TECHNIQUE: Multiple axial tomographic images were obtained without intravenous contrast administration. Coronal and sagittal reconstruction was obtained as well. FINDINGS: Moderate degree of cerebral atrophy. Cerebellar atrophy. Old lacunar infarct in the body of the right caudate nucleus. Atherosclerotic calcification of the cavernous portions of the internal carotid arteries and vertebral arteries. CT/Brain/Head without Contrast IMPRESSION: Atrophy. Reading Location: [id number]
[2024-08-03 12:35] LABS: Absolute Lymphocyte Count 1.08 X10^3/uL (0.83-4.51); Absolute Neutrophil Count 6.1 X10^3/uL (2.0-7.7); Basophil# 0.04 X10^3/uL; Basophil% 0.5 % (0-1); Eosinophil# 0.24 X10^3/uL; Eosinophils% 2.9 % (0-5); Hematocrit 48.4 % (40-54); Hemoglobin 16.5 g/dL (13.0-16.5); Lymphocyte # 1.08 X10^3/ul (0.83-4.51); Lymphocyte % 13.1 % (19-41); Mean Corp Hgb Conc 34.1 g/dL (32-36); Mean Corpuscular Hgb 31.4 pg (27.0-32.0); Mean Platelet Vol. 10.4 fl (6.2-12.0); Monocyte# 0.74 X10^3/uL; NRBC Flagged by Analyzer 0 % (0-5); Neutrophil # 6.11 X10^3/uL (2.7-7.7); Neutrophil % 74.3 % (47-70); Platelet Count 175 K/mm3 (150-450); RBC Distribution Width CV 13.1 % (11.6-14.6); RBC Distribution Width SD 43.6 fl (35.1-43.9); Red Blood Count 5.26 M/mm3 (4.6-6.2); White Blood Count 8.2 K/mm3 (4.4-11.0)
[2024-08-03 13:43] LABS: ALB/GLOB Ratio 1.5 RATIO (0.9-2.4); AST(SGOT) 15 U/L (<=37); Alanine Aminotransfer ALT/SGPT < 5 U/L (<=46); Albumin, Serum 4.1 g/dL (3.4-4.8); Alkaline Phosphatase 124 U/L (40-129); Anion Gap 10 (5-15); BUN 25 mg/dL (4-19); BUN/Creat Ratio 16.9 RATIO (10-20); Calcium 9.5 mg/dL (7.6-11.0); Chloride 107 mmol/L (96-108); Creatinine, Serum 1.5 mg/dL (0.8-1.3); EST Glomerular Filtration Rate 45 (>60); Globulin 2.7 g/dL (2.2-4.2); Glucose 96 mg/dL (70-99); Potassium 4.3 mmol/L (3.3-5.1); Protein, Total 6.8 g/dL (5.9-8.4); Sodium Level 142 mmol/L (133-145); Total Bilirubin 0.79 mg/dL (0.00-1.30)
== END | disposition home or self-care (01) ==
PROVIDERS: PCP Family Medicine Geriatric Medicine; Referring Provider Family Medicine Geriatric Medicine; Visit Provider Family Medicine Geriatric Medicine
DX: I10 Essential (primary) hypertension (principal); G93.40 Encephalopathy, unspecified; N39.0 Urinary tract infection, site not specified
CPT/HCPCS: 36415; 70450; 80053; 84443; 85025; 87086

== ENCOUNTER → 2024-09-04 | Outpatient (CLI) | payer MEDICARE, SELFPAY ==
--- NOTE | 2024-09-04 09:30 | MRI_ITS ---
PROCEDURE: BRAIN WITHOUT CONTRAST (MRIBR), 09/04/2024 REASON FOR EXAM: VASCULAR DEMENTIA COMPARISON: 08/03/2024. TECHNIQUE: Multisequence multiplanar MRI brain was performed without intravenous contrast. Contrast: None. FINDINGS: Note similar micro metallic artifact in the LEFT frontal region obscures portions of the field of view including portions of the LEFT frontal lobe, calvarium, and scalp. Cerebrum: No acute infarct, mass, or definite acute intracranial hemorrhage is identified. Moderate to advanced diffuse cerebral volume loss. Moderate supratentorial white matter abnormalities and/or tiny periventricular remote lacunar infarcts, somewhat increased from 05/16/2018 allowing for differences in technique, some oriented perpendicular to the corpus callosum. Multiple bilateral basal ganglia remote lacunar infarcts with increasing associated hemosiderin staining suggesting prior associated hemorrhagic conversion. Cerebellum: No acute infarct, mass, or appreciable hemorrhage. Similar tiny remote lacunar infarct in the RIGHT cerebellar hemisphere. Brainstem: Unremarkable. Ventricles/extra-axial spaces: Ventriculomegaly and prominence of the extra- axial spaces is grossly proportionate to the degree of volume loss. Major flow voids: Grossly unremarkable within limits of nondedicated technique. Paranasal sinuses: Unremarkable. Scalp/calvarium: Artifact as above, otherwise grossly unremarkable. Orbits: Grossly unremarkable within limits of nondedicated technique. Other: Degenerative changes in the minimally imaged upper cervical spine. MRI/Brain without Contrast IMPRESSION: 1. No specific evidence of an acute intracranial process. 2. Moderate to advanced diffuse cerebral volume loss with moderate supratentori al white matter abnormalities and/or tiny periventricular remote lacunar infarcts, somewhat increased from 05/16/2018 all owing for differences in technique. Given the morphology of some of the supratentorial white matter abnormalities, sequelae o f demyelination can not be entirely excluded however the appearance may again reflect an increasing number of tiny remote la cunar infarcts. 3. Additional description as above. Reading Location: [id number]
== END | disposition home or self-care (01) ==
LOC: MRI 08:45
PROVIDERS: PCP Family Medicine Geriatric Medicine; Referring Provider Family Medicine Geriatric Medicine; Visit Provider Family Medicine Geriatric Medicine
DX: F01.50 Vascular dementia, unspecified severity, without behavioral disturbance, psychotic disturbance, mood disturbance, and anxiety (principal)
CPT/HCPCS: 70551

== ENCOUNTER 2024-10-16 08:28 | Day surgery (SDC) | payer MEDICARE, SELFPAY ==
--- NOTE | 2024-10-12 14:46 | PAT.ANE_ITS ---
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 When Was Last Pacemaker Check QUESTION #4 FULL TEXT: You/Your Family Experience fever (hyperthermia) with Anesthesia Last Oral Intake Last Oral intake: Last Oral Intake NPO since Meds taken in AM with sips of water? 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 Female No 10/12/24 11:58 HX of Motion Sickness No 10/12/24 11:58 HX of N/V After Surgery No 10/12/24 11:58 Non-Smoker Yes 10/12/24 11:58 Duration of Surgery greater No 10/12/24 11:58 than 60 minutes Number of Risk Factors 1 10/12/24 11:58 PONV Score Low Risk 10/12/24 11:58 Height & Weight Height & Weight: Anesthesia: Height & Weight Height 5 ft 9 in 05/20/22 13:22 Respiratory Assessment Respiratory Assessment - generator operator: Respiratory Tract Infection Hx - generator operator Hx Respiratory Tract Infection No 10/12/24 11:58 STOP Sleep Apnea STOP Sleep Apnea - generator operator: STOP Sleep Apnea - generator operator Hx Hypertension No 10/12/24 11:58 Hx Sleep Apnea No 10/12/24 11:58 CPAP BIPAP Do you snore loudly (louder No 10/12/24 11:58 than talking or can be heard Do you often feel tired/ No 10/12/24 11:58 fatigued/ sleepy during daytime? Has anyone observed you stop No 10/12/24 11:58 breathing during sleep? STOP Results Negative 10/12/24 11:58 QUESTION #5 FULL TEXT : Do you snore loudly (louder than talking or can be heard through closed doors)? 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 Specify any problems Hx of Preganancy in last 3 N/A 10/12/24 11:58 Months Nurse Filling Out Transfusion [place] 10/12/24 11:58 & Questions: Date: 10/12/24 10/12/24 11:58 Time: 12:00 10/12/24 11:58 Patient unable to answer at this time (ie. confused, unrespo /Reproduction History /Reproductive History - generator operator: /Reproductive Hx- generator operator Hx Now Gestational Age (in weeks): EDC: Hx Hx Para Hx Section SAB No 05/03/22 21:56 PFSH Medical History Wears dentures Wears glasses Anxiety Depression Rash Prostate disease History of renal disease Ambulates with cane History of echocardiogram History of atrial fibrillation Prostate enlargement Closed left hip fracture Depression Stroke/cerebrovascular accident HTN (hypertension) A-fib Acute ischemic stroke Home Medications ?Medication ?Instructions ?Recorded ?Last Taken ?Type mirtazapine 15 mg tablet 7.5 mg (1/2 x 15 mg) PO QHS 30 05/26/22 Unknown Rx days #15 tabs aspirin 81 mg tablet,delayed 81 mg PO QDAY 08/08/24 Un known History release (Adult Aspirin Regimen) cholecalciferol (vitamin D3) 25 25 mcg PO QDAY 5 Unknown History mcg (1,000 unit) capsule mecobalamin (vitamin B12) 1,000 1,000 mcg PO QDAY 09/29 Unknown History mcg chewable tablet metoprolol succinate 25 mg 12.5 mg PO DAILY 10/12/24 U nknown History tablet,extended release 24 hr Allergy/AdvReac Type Severity Reaction Status Date / Time No Known Allergies Allergy Verified 10/12/24 11:56 Surgical History (Updated 10/12/24 @ 12:07 by Marisel Colon) History of hip surgery History of transurethral resection of prostate Social History (Updated 05/05/22 @ 19:[address] John Becerril MD) household members: none Smoking Status: Never smoker alcohol intake: never substance use type: does not use Audit: Pertinent Findings Pertinent Findings EKG Perinent findings: 05/11/2022. Atrial fibrillation with PVCs or aberrantly conducted complexes. Compared to EKG of May 05, 2022 no significant change was noted. Echo (EF%) pertinent findings: 05/04/2022. Reason for study is new onset A-fib. EF equal 60%. PASP is 34 mmHg. No aortic stenosis is noted. Recommendation Anesthesia Recommendation Anesthesia recommendation: OPTIMIZED for anesthesia
[2024-10-16] VITALS (11 sets, daily range): BP systolic 108–148; BP diastolic 55–96; PULSE 77–91; RESP 14–20; TEMP 36.1–36.7; O2SAT 93–98; BMI 21.8
[2024-10-16] MEDS: Lactated Ringers 1,000 ML 15 ML IV (09:01)
--- NOTE | 2024-10-16 09:13 | PRE.ANES_ITS ---
ASA Classification* ASA Classification ASA Classification: 3 Assessment & Plan Anesthesia* Anesthesia Assessment Anesthesia Assessment: Discussed sedation and/or anesthesia options, risks, benefits, and alternatives with patient/parents/legal guardian/POA. Questions invited. The patient/parents/legal guardian/POA seems to understand and agrees to proceed with anesthesia plan. Reviewed the physical assessment, medical history, allergy history and patient home medications list prior to surgery/procedure/anesthetic and documented any changes. Performed airway and anesthesia risk assessments. Anesthesia Type Anesthesia Type: MAC History Source History Obtained from:: Patient and Chart Anesthesia Focused Assessment* Temperature: 98.1 F Pulse Rate: 91 Blood Pressure: 148/96 Respiratory Rate: 16 Pulse Ox: 98 Oxygen Delivery Method: Room Air Airway Assessment Mouth opens: >3 cm Mallampati Score: II Teeth Condition: Dentures (Patient has full upper dentures. Which are out.) and Lower (Patient apartment lower dentures. Which patient states do not come out) Neck Range of motion (ROM): Limited ROM (Slight decrease in extension) Focused Labs Anesthesia Preop lab: CBC WBC 8.2 K/mm3 (4.4-11.0) 08/03/24 11:45 08/03/24 RBC 5.26 M/mm3 (4.6-6.2) 08/03/24 11:45 08/03/24 Hgb 16.5 g/dL (13.0-16.5) 08/03/24 11:45 08/03/24 Hct 48.4 % (40-54) 08/03/24 11:45 08/03/24 Plt Count 175 K/mm3 (150-450) 08/03/24 11:45 08/03/24 CHEMISTRY Potassium 4.3 mmol/L (3.3-5.1) 08/03/24 11:45 08/03/24 Sodium 142 mmol/L (133-145) 08/03/24 11:45 08/03/24 Phosphorus 3.2 mg/dL (2.5-4.9) 07/13/22 11:27 07/13/22 BUN 25 mg/dL (4-19) H 08/03/24 11:45 08/03/24 Creatinine 1.5 mg/dL (0.8-1.3) H 08/03/24 11:45 08/03/24 Glucose 96 mg/dL (70-99) 08/03/24 11:45 08/03/24 POC Glucose 118 mg/dL (70-110) H 05/16/18 08:24 05/16/18 TSH 3.050 uIU/mL (0.300-4.200) 08/03/24 11:45 02/12/29 COAG PT 13.7 SECONDS (11.7-14.9) 05/16/18 08:26 Pre-Assessment Diagnosis/Proposed Procedure Planned Operative Procedure(s): EGD Anesthesia History 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 When Was Last Pacemaker Check QUESTION #4 FULL TEXT: You/Your Family Experience fever (hyperthermia) with Anesthesia Last Oral Intake Last Oral intake: Last Oral Intake NPO since 18:00 10/16/24 08:50 Meds taken in AM with sips of Yes 10/16/24 08:50 water? 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 Female No 10/12/24 11:58 HX of Motion Sickness No 10/12/24 11:58 HX of N/V After Surgery No 10/12/24 11:58 Non-Smoker Yes 10/12/24 11:58 Duration of Surgery greater No 10/12/24 11:58 than 60 minutes Number of Risk Factors 1 10/12/24 11:58 PONV Score Low Risk 10/12/24 11:58 Height & Weight Height & Weight: Anesthesia: Height & Weight Height 5 ft 9 in 10/16/24 08:50 Weight: 67.1 kg 10/16/24 08:50 Body Mass Index (BMI) 21.8 10/16/24 08:50 Respiratory Assessment 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 Has anyone observed you stop No 10/12/24 11:58 breathing during sleep? STOP Results Negative 10/12/24 11:58 QUESTION #5 FULL TEXT : Do you snore loudly (louder than talking or can be heard through closed doors)? 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 Specify any problems Hx of Preganancy in last 3 N/A 10/12/24 11:58 Months Nurse Filling Out Transfusion [place] 10/12/24 11:58 & Questions: Date: 10/12/24 10/12/24 11:58 Time: 12:00 10/12/24 11:58 Patient unable to answer at this time (ie. 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 driver Hx Now Gestational Age (in weeks): EDC: Hx Hx Para Hx Section SAB No 05/03/22 21:56 Active Medications Active Medications: Current Medications Generic Name Dose Route Start Last Admin Trade Name Freq PRN Reason Stop Dose Admin Lactated Ringer's 1,000 mls @ 15 mls/hr 10/16/24 08:45 10/16/24 09:01 IV 15 mls/hr .Q48H DENISE Administration PFSH Medical History Wears dentures Wears glasses Anxiety Depression Rash Prostate disease History of renal disease Ambulates with cane History of echocardiogram History of atrial fibrillation Prostate enlargement Closed left hip fracture Depression Stroke/cerebrovascular accident HTN (hypertension) A-fib Acute ischemic stroke Home Medications ?Medication ?Instructions ?Recorded ?Last Taken ?Type mirtazapine 15 mg tablet 7.5 mg (1/2 x 15 mg) PO QHS 30 05/26/22 Unknown Rx days #15 tabs aspirin 81 mg tablet,delayed 81 mg PO QDAY 08/08/24 History release (Adult Aspirin Regimen) cholecalciferol (vitamin D3) 25 25 mcg PO QDAY 5 10/13/24 History mcg (1,000 unit) capsule mecobalamin (vitamin B12) 1,000 1,000 mcg PO QDAY 09/2910/13/24 History mcg chewable tablet metoprolol succinate 25 mg 12.5 mg PO DAILY 10/12/24 0 10/16/24 07:00 History tablet,extended release 24 hr Allergy/AdvReac Type Severity Reaction Status Date / Time No Known Allergies Allergy Verified 10/16/24 08:48 Surgical History (Updated 10/16/24 @ 09:[address] Grzegorz Salvador MD) History of esophagogastroduodenoscopy (EGD) History of hip surgery History of transurethral resection of prostate Social History household members: none Smoking Status: Never smoker alcohol intake: never substance use type: does not use Review of Systems (Anesthesia) ROS Narrative System reviewed and no additional complaints, except as documented.
--- NOTE | 2024-10-16 09:15 | PCM.HP.STD ---
HPI - General General Date of Admission: 10/16/24 Date of Service: 10/16/24 Chief Complaint: dysphagia HPI Narrative OLEG WASSERMAN, is a 89 M who presents for dysphagia Pt has been having issues with swallowing for years. Pt had EGD with dilation back in [address] Duarte. After this, his symptoms improved but he has noticed worsening symptoms recently. He was supposed to have a repeat EGD 3 months after but broke his hip and was unable to have this done. He is having at least one episode a month of food getting stuck in his esophagus. Most recently he had a green myers get stuck and he had to regurgitate it. He denies heartburn, n/v, abd pain, constipation or diarrhea. EGD 05.12.22; - Zenker's diverticulum. - Tortuous esophagus. - Severe Schatzki ring. Dilated. - Benign-appearing esophageal stenoses. Treated with argon plasma coagulation (APC). - Medium-sized hiatal hernia. - No gross lesions in the first portion of the duodenum. [facility] Medical History Wears dentures Wears glasses Anxiety Depression Rash Prostate disease History of renal disease Ambulates with cane History of echocardiogram History of atrial fibrillation Prostate enlargement Closed left hip fracture Depression Stroke/cerebrovascular accident HTN (hypertension) A-fib Acute ischemic stroke Home Medications ?Medication ?Instructions ?Recorded ?Last Taken ?Type mirtazapine 15 mg tablet 7.5 mg (1/2 x 15 mg) PO QHS 30 05/26/22 Unknown Rx days #15 tabs aspirin 81 mg tablet,delayed 81 mg PO QDAY 08/08/24 10/13/24 History release (Adult Aspirin Regimen) cholecalciferol (vitamin D3) 25 25 mcg PO QDAY 08/08/24 10/13/24 History mcg (1,000 unit) capsule mecobalamin (vitamin B12) 1,000 1,000 mcg PO QDAY 08/08/24 10/13/24 History mcg chewable tablet metoprolol succinate 25 mg 12.5 mg PO DAILY 10/12/24 10/16/24 07:00 History tablet,extended release 24 hr Allergy/AdvReac Type Severity Reaction Status Date / Time No Known Allergies Allergy Verified 10/16/24 08:48 Surgical History History of hip surgery History of transurethral resection of prostate Social History household members: none Smoking Status: Never smoker alcohol intake: never substance use type: does not use ROS Constitutional Constitutional: Denies fatigue, fever(s), poor appetite, weight gain or weight loss Gastrointestinal Gastrointestinal: Denies belching, bloating, change in bowel habits, change in stool character, chewing difficulty, coffee ground emesis, constipation, cramping, diarrhea, dyspepsia, dysphagia, early satiety, excessive flatus, fecal incontinence, heartburn, hematemesis, hematochezia, hemorrhoids, loose stools, melena, nausea, odynophagia, rectal bleeding, tenesmus, vomiting or weight changes Vital Signs Vital Signs Vital Signs: 10/16/24 08:50 10/16/24 08:50 Temperature 98.1 F Temperature Source Temporal Pulse Rate 91 Respiratory Rate 16 Respiratory Pattern Normal Blood Pressure 148/96 H Blood Pressure Mean 113 Blood Pressure Source Monitor Blood Pressure Position Semi-Fowlers Blood Pressure Location Left Arm Pulse Ox 98 Oxygen Delivery Method Room Air Weight Weight: 147 lb 14.883 oz Body Mass Index (BMI) 21.8 Physical Exam Const alert, oriented x3, no apparent distress and healthy appearing General Appearance: cooperative GI normal to inspection, nondistended, normoactive bowel sounds, soft to palpation, non-tender and non-distended Percussion: normal to percussion Rectal Exam: deferred Assessment & Plan Assessment/Plan (1) Dysphagia: PLAN: Assessment and Plan Assessment and Plan (1) Dysphagia: Status: Acute Plan: This is an 89 yo male pt here today for evaluation of dysphagia to solids. Pt underwent EGD in 2021 for dysphagia which revealed stenosis, Schatzki ring and Zenker diverticulum. Recommendation was for repeat in 3 months but was unable to have this done dye to breaking his hip. At this time, he is having dysphagia with need to regurgitate his food at least once a month. He will undergo EGD with dilation and botox. -EGD with dilation and botox -f/u as needed
--- NOTE | 2024-10-16 09:30 | EGD_PTH ---
PATIENT: OLEG WSASERMAN LOC: EN U#:[id number] AGE/SX: 89/M ROOM: RE10/16/[address]: Dr. Elver Duarte DO : 1935 BED: DIS: 10/16/2024 SPEC #: [id number] RECD: 10/16/24 12:55 STATUS: TERRENCE REChasity #: [id number] JAZMIN: 10/16/24 09:[address]: Elver Duarte DEPT: SURGICAL PATHOLOGY RECD BY: Jun Garland ENTERED: 10/16/24 13:29 SP TYPE: EGD BIOPSY OT DR: Dr. John Becerril MD Tissues: A - Esophagus, NOS Procedures: Surgery Specimen Level IV HEADER OPERATION: EGD, biopsy, APC PRE-OP DIAGNOSIS: Dysphagia TISSUE SUBMITTED: A- Distal esophagus biopsy MICROSCOPIC DIAGNOSIS A. Esophagus, distal, biopsy: * Benign squamous epithelium * Oxyntocardiac type mucosa with mild chronic inflammation, negative for goblet cells MICROSCOPIC DESCRIPTION Slides are reviewed. GROSS DESCRIPTION A. Received in formalin in a container labeled with the patient's name, date of , and distal esophagus biopsy are multiple pink-ta fragments of soft tissue with black speckles measuring 1.5 x 1.0 x 0.3 cm in aggregate. Submitted in toto in A1. B 10-16-2024 CPT:02158
--- NOTE | 2024-10-16 09:55 | PCM.POST.ANE ---
Anesthesia: Postop Eval I Current Vital Signs Temperature: 97 F Pulse Rate: 87 Blood Pressure: 110/55 Respiratory Rate: 20 Pulse Ox: 97 Assessment Airway patent: Yes Spontaneous unlabored respirations: Yes nausea: No Vomiting: No Anesthesia Complication: No Fluid Hydration Crystalloid volume administer (ml): 300 Total IV fluid infused: 300 Progress Note Anesthesia document: Postop Eval 1 completed: Yes
--- NOTE | 2024-10-16 09:56 | OP.EGD_ITS ---
Patient Name: Luis Enrique Thomas Procedure Date: 10/16/2024 9:18 AM Date of : 1935 Age: 89 Procedure: Upper GI endoscopy Indications: Dysphagia Providers: Elver Duarte DO Referring MD: John Becerril MD Medicines: Monitored Anesthesia Care Patient Profile: This is an 89 year old male. Refer to note in patient chart for documentation of history and physical. Patient has symptoms of dysphagia with both liquids and solids. Complications: No immediate complications. Procedure: Pre-Anesthesia Assessment: - Prior to the procedure, a History and Physical was performed, and patient medications and allergies were reviewed. The patient is competent. The risks and benefits of the procedure and the sedation options and risks were discussed with the patient. All questions were answered and informed consent was obtained. Patient identification and proposed procedure were verified by the physician in the pre-procedure area. Mental Status Examination: alert and oriented. Airway Examination: normal oropharyngeal airway and neck mobility. Respiratory Examination: clear to auscultation. CV Examination: normal. Prophylactic Antibiotics: The patient does not require prophylactic antibiotics. Prior Anticoagulants: The patient has taken no anticoagulant or antiplatelet agents except for NSAID medication. ASA Grade Assessment: III - A patient with severe systemic disease. After reviewing the risks and benefits, the patient was deemed in satisfactory condition to undergo the procedure. The anesthesia plan was to use monitored anesthesia care (MAC). Immediately prior to administration of medications, the patient was re-assessed for adequacy to receive sedatives. The heart rate, respiratory rate, oxygen saturations, blood pressure, adequacy of pulmonary ventilation, and response to care were monitored throughout the procedure. The physical status of the patient was re-assessed after the procedure. After obtaining informed consent, the endoscope was passed under direct vision. Throughout the procedure, the patient's blood pressure, pulse, and oxygen saturations were monitored continuously. The gastroscope was introduced through the mouth, and advanced to the second part of duodenum. The upper GI endoscopy was accomplished without difficulty. The patient tolerated the procedure well. Scope In: 9:30:25 AM Scope Out: 9:51:02 AM Total Procedure Duration Time 0 hours 20 minutes 37 seconds Findings: Abnormal motility was noted in the upper third of the esophagus, in the middle third of the esophagus and in the lower third of the esophagus. The cricopharyngeus was abnormal. There are extra peristaltic waves in the esophageal body. The distal esophagus/lower esophageal sphincter is spastic, but gives up passage to the endoscope. Tertiary peristaltic waves are noted. One benign-appearing, intrinsic severe (stenosis; an endoscope cannot pass) stenosis was found 36 to 39 cm from the incisors. This stenosis measured 6 cm (in length). The stenosis was traversed. Biopsies were taken with a cold forceps for histology. Verification of patient identification for the specimen was done. Estimated blood loss was minimal. Coagulation for destruction of remaining portion of lesion using argon plasma at 0.6 liters/minute and 20 peters was successful. Estimated blood loss was minimal. No gross lesions were noted in the entire examined stomach. The examined duodenum was normal. Impression: - Abnormal esophageal motility, established presbyesophagus. - Benign-appearing esophageal stenosis. Biopsied. Treated with argon plasma coagulation (APC). - No gross lesions in the entire stomach. - Normal examined duodenum. Recommendation: - Discharge patient to home. - Resume previous diet. - Continue present medications. - Await pathology results. Procedure Code(s): --- Professional --- 32117, Esophagogastroduodenoscopy, flexible, transoral; with biopsy, single or multiple CPT copyright 2021 [employer]. All rights reserved. The codes documented in this report are preliminary and upon pastry artist review may be revised to meet current compliance requirements. Elver Duarte DO 10/16/2024 9:56:00 AM This report has been signed electronically. Number of Addenda: 0 Note Initiated On: 10/16/2024 9:18 AM
--- NOTE | 2024-10-16 09:56 | OP.CCLET_ITS ---
10/16/2024 John Becerril MD [address] [place] [address] Re : Upper GI endoscopy procedure for Luis Enrique Thomas Dear Dr. Becerril This procedure was performed on Wednesday, October 16, 2024. My impressions and recommendations are as follows: Impressions : - Abnormal esophageal motility, established presbyesophagus. - Benign-appearing esophageal stenosis. Biopsied. Treated with argon plasma coagulation (APC). - No gross lesions in the entire stomach. - Normal examined duodenum. Recommendations : - Discharge patient to home. - Resume previous diet. - Continue present medications. - Await pathology results. My findings are described in the full procedure note, which is enclosed. If I can be of further assistance, please feel free to contact me at . Sincerely, Elver Duarte, 10/16/2024 9:56:00 AM This report has been signed electronically.
[2024-10-16] MEDS: Pantoprazole Sodium 80 MG in 0.9% Normal Saline (50mL Bag) 15 ML 420 MG IV BOLUS (10:43)
--- NOTE | 2024-10-16 18:01 | POSTOPAN2_ITS ---
Anesthesia Postop Eval I Sum Postop Eval Completion status Anesthesia document: Postop Eval 1 completed: Yes Anesthesia Postop Eval I Summary Anesthesia Postop Eval I Summary: Anesthesia Postop Eval I: Assessment Summary Airway patent Yes 10/16/24 09:56 NURSE [email or web address].CSIR Spontaneous unlabored Yes 10/16/24 09:56 NURSE QUALITY.CSIR respirations Mental status nausea No 10/16/24 09:56 NURSE QUALITY.CSIR Vomiting No 10/16/24 09:56 NURSE QUALITY.CSIR Anesthesia Postop Eval I: Fluid Summary Crystalloid volume administer 300 10/16/24 09:56 NURSE QUALITY.CSIR (ml) Colloids volume administered ( ml) Blood Product volume administered (ml) Total IV fluid infused 300 10/16/24 09:56 NURSE QUALITY.CSIR Anesthesia Postop Eval I: Summary Notes Anesthesia Complication No 10/16/24 09:56 NURSE QUALITY.CSIR Anesthesia Complication Comment: Post-operative progress note Anesthesia: Postop Eval II Evaluation Mental status: Awake and Calm Pain Level: 0 nausea: No Vomiting: No Complications Anesthesia Complication: No
--- NOTE | 2024-10-16 18:01 | PCM.POSTANE2 ---
Anesthesia Postop Eval I Sum Postop Eval Completion status Anesthesia document: Postop Eval 1 completed: Yes Anesthesia Postop Eval I Summary Anesthesia Postop Eval I Summary: Anesthesia Postop Eval I: Assessment Summary Airway patent Yes 10/16/24 09:56 [email or web address] Spontaneous unlabored Yes 10/16/24 09:56 [email or web address] respirations Mental status nausea No 10/16/24 09:56 [email or web address] Vomiting No 10/16/24 09:56 [email or web address] Anesthesia Postop Eval I: Fluid Summary Crystalloid volume administer 300 10/16/24 09:56 [email or web address] (ml) Colloids volume administered ( ml) Blood Product volume administered (ml) Total IV fluid infused 300 10/16/24 09:56 [email or web address] Anesthesia Postop Eval I: Summary Notes Anesthesia Complication No 10/16/24 09:56 [email or web address] Anesthesia Complication Comment: Post-operative progress note Anesthesia: Postop Eval II Evaluation Mental status: Awake and Calm Pain Level: 0 nausea: No Vomiting: No Complications Anesthesia Complication: No
== END 2024-10-16 11:20 | disposition home or self-care (01) ==
LOC: EN 08:29 → AC 08:30
PROVIDERS: PCP Family Medicine Geriatric Medicine; Referring Provider Family Medicine Geriatric Medicine; Visit Provider Internal Medicine Gastroenterology
PROC: 0DJ08ZZ Inspection of Upper Intestinal Tract, Via Natural or Artificial Opening Endoscopic (ICD-10-PCS; CPT 43235; principal; 2024-10-16 09:25)
DX: K20.90 Esophagitis, unspecified without bleeding (principal); R13.10 Dysphagia, unspecified; K22.2 Esophageal obstruction; I10 Essential (primary) hypertension; Z79.82 Long term (current) use of aspirin; K22.89 Other specified disease of esophagus; Z79.899 Other long term (current) drug therapy; Z86.73 Personal history of transient ischemic attack (TIA), and cerebral infarction without residual deficits
CPT/HCPCS: 43239; 88305; C1889; J0585; J2405

== ENCOUNTER → 2025-01-24 | Outpatient (CLI) | payer MEDICARE, SELFPAY ==
[2025-01-24 10:55] LABS: Hematocrit 45.3 % (40-54); Hemoglobin 15.7 g/dL (13.0-16.5); Immature Granulocytes Count 0.040 X10^3/uL (0.0-0.0); Mean Corp Hgb Conc 34.7 g/dL (32-36); Mean Corpuscular Volume 91.9 fL (80-94); Mean Platelet Vol. 10.4 fl (6.2-12.0); NRBC Flagged by Analyzer 0 % (0-5); Platelet Count 180 K/mm3 (150-450); RBC Distribution Width CV 13.3 % (11.6-14.6); RBC Distribution Width SD 45.0 fl (35.1-43.9); Red Blood Count 4.93 M/mm3 (4.6-6.2); White Blood Count 8.2 K/mm3 (4.4-11.0)
[2025-01-24 11:53] LABS: AST(SGOT) 15 U/L (<=37); Alanine Aminotransfer ALT/SGPT 6 U/L (<=46); Albumin, Serum 3.9 g/dL (3.4-4.8); Alkaline Phosphatase 127 U/L (40-129); Anion Gap 11 (5-15); BUN 21 mg/dL (4-19); BUN/Creat Ratio 13.4 RATIO (10-20); Calcium,Total 9.4 mg/dL (7.6-11.0); Carbon Dioxide 23.9 mmol/L (21.0-32.0); Chloride 108 mmol/L (98-108); Cholesterol 99 mg/dL (<=200); Globulin 2.5 g/dL (2.2-4.2); Glucose 100 mg/dL (70-99); Low Density Lipoprotein Calc. 40 mg/dL; Potassium 4.3 mmol/L (3.3-5.1); Triglycerides 94 mg/dL; Very Low Density Lipoprotein 19 mg/dL (5-40); Vitamin D,25 Hydroxy 54.2 ng/mL (30-100); cholesterol:hdl ratio screen 2.46
== END | disposition home or self-care (01) ==
LOC: LAB 10:14
PROVIDERS: PCP Family Medicine Geriatric Medicine; Referring Provider Family Medicine Geriatric Medicine; Visit Provider Family Medicine Geriatric Medicine
DX: I10 Essential (primary) hypertension (principal); E55.9 Vitamin D deficiency, unspecified; E78.5 Hyperlipidemia, unspecified
CPT/HCPCS: 36415; 80053; 80061; 82306; 84443; 85025